=== PATIENT | male | born 1935 | race Caucasian/White ===

== ENCOUNTER 2018-08-16 13:29 | Observation (INO) | payer MEDICARE, SELFPAY ==
[2018-08-16] VITALS (11 sets, daily range): BP systolic 69–140; BP diastolic 50–74; PULSE 47–84; RESP 14–20; TEMP 36.6–36.7; O2SAT 94–98; BMI 21.9; BMI 21.7
--- NOTE | 2018-08-16 13:53 | CT_ITS ---
STUDY: CT CERVICAL SPINE WITHOUT CONTRAST REASON FOR EXAM: Male, 83 years old. Status post fall. RADIATION DOSAGE (If Supplied By Facility): CTDIvol = ( 20.49 ) mGy, DLP = ( 469.57 ) mGycm TECHNIQUE: High resolution transaxial imaging was performed without contrast material. Sagittal and coronal images were reconstructed. Individualized dose optimization techniques were used for this CT. COMPARISON: None FINDINGS: Normal craniovertebral junction. There are degenerative changes of the anterior atlantoaxial articulation. Normal odontoid process. There is straightening of the normal cervical lordosis. There is no evidence of acute compression fracture deformity. The posterior elements are intact. C2-3: Degenerative changes in the apophyseal joints bilaterally. No evidence of central spinal canal or neural foramina stenosis. C3-4: Degenerative changes in the apophyseal joints with probable effusion on the left side. No evidence of central spinal canal or neural foramina stenosis. C4-5: Small posterior lateral degenerative spurs on the left side impinging on the left neural foramina. No evidence of central spinal canal stenosis. C5-6: Narrowing of the disc space. Endplate spondylosis. Degenerative changes in facet joints. No evidence of central spinal canal or bony neural foramina stenosis. C6-7: Narrowing of the disc space. Endplate spondylosis. Degenerative changes in the apophyseal joints. Posterior lateral degenerative spurs with narrowing of the right neural foramina. Borderline central spinal canal. C7-T1: Possible minimal anterolisthesis of C7 over T1. No evidence of central spinal canal stenosis. There is no prevertebral soft tissue swelling. There are atherosclerotic calcifications of the carotid arteries bilaterally. CT/Spine Cervical without Contras IMPRESSION: 1. Multilevel degenerative changes, as described above. 2. Straightening of the cervical spine which could be due to muscle spasm. 3. No demonstrated acute fracture or subluxation. 4. If symptoms persist, MRI of the cervical spine is recommended. Electronically Signed: Mac Pool MD at 15:15 EDT Tel , Service support ,
--- NOTE | 2018-08-16 13:53 | CT_ITS ---
STUDY: CT BRAIN WITHOUT CONTRAST REASON FOR EXAM: Male, 83 years old. Status post fall, syncope injury RADIATION DOSAGE (If Supplied By Facility): CTDIvol = ( 44.99 ) mGy, DLP = ( 779.24 ) mGycm TECHNIQUE: Transaxial CT imaging of the brain was performed without administration of intravenous contrast material. Individualized dose optimization techniques were used for this CT. COMPARISON: September 10, 2015 FINDINGS: Normal soft tissue structures. Normal calvarium. There is mild cerebral atrophy with widening of the extra-axial spaces and ventricular dilatation. There are areas of decreased attenuation within the white matter tracts of the supratentorial brain, consistent with microvascular disease changes. Normal basal ganglia and thalami. Normal brainstem. There is mild cerebellar atrophy. There is no intracranial hemorrhage. There are no findings of an acute ischemic infarction. There is bilateral lobulated chronic appearing mucosal thickening of the maxillary sinuses. This is new on the right side when compared to the prior study. There is a diminutive appearance of the left turbinates absence of the right inferior turbinate and chronic appearing ethmoid sinus sphenoid sinus mucosal thickening with frontal sinusitis. 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 Stable since prior study. 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 No visualized evidence of acute hemorrhage or infarct or edema. Electronically Signed: Liza Saeed MD at 15:30 EDT Tel , Service support ,
--- NOTE | 2018-08-16 13:53 | EKG12_ITS ---
Test Reason : FALL Blood Pressure : / mmHG Vent. Rate : 048 BPM Atrial Rate : 048 BPM P-R Int : 214 ms QRS Dur : 086 ms QT Int : 460 ms P-R-T Axes : 019 010 041 degrees QTc Int : 410 ms Sinus bradycardia with 1st degree A-V block Otherwise normal ECG Confirmed by ORESTES FELICIANO, GENARO ([id number]), food expeditor ADRYAN RED ([id number]) on 08/18/2018 3:11:50 PM Referred By: KEYANA Confirmed By:GENARO CARLISLE MD
--- NOTE | 2018-08-16 14:03 | CT_ITS ---
PROCEDURE: CTA ABDOMEN AND PELVIS WITH CONTRAST REASON FOR EXAM: Male, 83 years old. Status post fall. Right rib pain. Possible syncope. RADIATION DOSAGE (If Supplied By Facility): CTDIvol = ( 14.12 ) mGy, DLP = ( 965.19 ) mGycm TECHNIQUE: Transaxial images were obtained from the dome of the diaphragm to the symphysis pubis without oral contrast, and without intravenous contrast. COMPARISON: None. FINDINGS: The lungs are reported separately. The heart size is normal. No focal lesion is seen in the liver although there is suboptimal enhancement due to arterial phase of scanning. Normal gallbladder and extrahepatic biliary system. The spleen is not enlarged. There is heterogeneous enhancement due to arterial phase of scanning. There is diffuse atrophy of the pancreas. Normal bilateral adrenal glands. Normal right kidney. Normal left kidney. There is a small hiatal hernia. There are nonspecific fluid-filled small bowel loops. There is no evidence of bowel obstruction. No free fluid is seen. There is no evidence of free air. There is fecal retention. There is non-visualization of the appendix. There is no demonstrated peritoneal fluid. There is diffuse atherosclerotic calcification of the abdominal aorta, without a demonstrated aneurysm. Normal inferior vena cava. Normal retroperitoneum. Normal urinary bladder. The prostate is prominent. There is no pelvic fluid. Normal abdominal wall. There is mild compression fracture of L2 vertebra which could be acute. There is demineralization of the osseous structures. IMPRESSION: 1. Mild compression fracture of L2 vertebra without retropulsion which could be acute. 2. Nonspecific fluid-filled small bowel loops which could be due to mild ileus. 3. No evidence of solid organ injury. 4. Small hiatal hernia. 5. Prominent prostate. CT Electronically Signed: Mac Pool MD at 15:33 EDT Tel , Service support , STUDY: CTA CHEST REASON FOR EXAM: Male, 83 years old. Status post fall. Right rib pain. Possible syncope. RADIATION DOSAGE (If Supplied By Facility): CTDIvol = ( 14.12 ) mGy, DLP = ( 965.19 ) mGycm TECHNIQUE: The examination was performed with the intravenous administration of 100 ml of Isovue 300 contrast material. Post-processing of the angiographic images was performed, with multiplanar reformation and 3D reconstruction. Individualized dose optimization techniques were used for this CT. COMPARISON: None. FINDINGS: Normal enhancement of the main pulmonary artery and right and left pulmonary arteries. Normal enhancement of the bilateral peripheral pulmonary arteries. There is no demonstrated pulmonary embolism. The examination however was not tailored to rule out pulmonary embolism. There is atherosclerotic calcification of the aortic arch with tortuosity. There is no demonstrated aortic dissection. There is mild cardiomegaly. There is no evidence of pericardial effusion. Normal mediastinum. Normal hilar regions. The trachea is somewhat tortuous. The lungs are well expanded. There is a small calcified granuloma in the right upper lobe. There is mild stranding and nodular changes in the left lower lobe. There are hypoventilatory changes in the left lower lobe. There are no pleural effusions. Normal chest wall structures. There are degenerative changes of thoracic spine. The upper abdomen is reported separately. CT/CT ANGIO ABD&PEL W/O&W/DYE IMPRESSION: 1. No evidence of pneumothorax or focal pulmonary contusion. 2. Atelectasis or scarring in the left lower lobe. Underlying pulmonary nodule cannot be excluded. 3. No demonstrated definite rib fracture. Electronically Signed: Mac Pool MD at 15:37 EDT Tel , Service support ,
--- NOTE | 2018-08-16 14:03 | CT_ITS ---
PROCEDURE: CTA ABDOMEN AND PELVIS WITH CONTRAST REASON FOR EXAM: Male, 83 years old. Status post fall. Right rib pain. Possible syncope. RADIATION DOSAGE (If Supplied By Facility): CTDIvol = ( 14.12 ) mGy, DLP = ( 965.19 ) mGycm TECHNIQUE: Transaxial images were obtained from the dome of the diaphragm to the symphysis pubis without oral contrast, and without intravenous contrast. COMPARISON: None. FINDINGS: The lungs are reported separately. The heart size is normal. No focal lesion is seen in the liver although there is suboptimal enhancement due to arterial phase of scanning. Normal gallbladder and extrahepatic biliary system. The spleen is not enlarged. There is heterogeneous enhancement due to arterial phase of scanning. There is diffuse atrophy of the pancreas. Normal bilateral adrenal glands. Normal right kidney. Normal left kidney. There is a small hiatal hernia. There are nonspecific fluid-filled small bowel loops. There is no evidence of bowel obstruction. No free fluid is seen. There is no evidence of free air. There is fecal retention. There is non-visualization of the appendix. There is no demonstrated peritoneal fluid. There is diffuse atherosclerotic calcification of the abdominal aorta, without a demonstrated aneurysm. Normal inferior vena cava. Normal retroperitoneum. Normal urinary bladder. The prostate is prominent. There is no pelvic fluid. Normal abdominal wall. There is mild compression fracture of L2 vertebra which could be acute. There is demineralization of the osseous structures. IMPRESSION: 1. Mild compression fracture of L2 vertebra without retropulsion which could be acute. 2. Nonspecific fluid-filled small bowel loops which could be due to mild ileus. 3. No evidence of solid organ injury. 4. Small hiatal hernia. 5. Prominent prostate. CT Electronically Signed: Mac Pool MD at 15:33 EDT Tel , Service support , STUDY: CTA CHEST REASON FOR EXAM: Male, 83 years old. Status post fall. Right rib pain. Possible syncope. RADIATION DOSAGE (If Supplied By Facility): CTDIvol = ( 14.12 ) mGy, DLP = ( 965.19 ) mGycm TECHNIQUE: The examination was performed with the intravenous administration of 100 ml of Isovue 300 contrast material. Post-processing of the angiographic images was performed, with multiplanar reformation and 3D reconstruction. Individualized dose optimization techniques were used for this CT. COMPARISON: None. FINDINGS: Normal enhancement of the main pulmonary artery and right and left pulmonary arteries. Normal enhancement of the bilateral peripheral pulmonary arteries. There is no demonstrated pulmonary embolism. The examination however was not tailored to rule out pulmonary embolism. There is atherosclerotic calcification of the aortic arch with tortuosity. There is no demonstrated aortic dissection. There is mild cardiomegaly. There is no evidence of pericardial effusion. Normal mediastinum. Normal hilar regions. The trachea is somewhat tortuous. The lungs are well expanded. There is a small calcified granuloma in the right upper lobe. There is mild stranding and nodular changes in the left lower lobe. There are hypoventilatory changes in the left lower lobe. There are no pleural effusions. Normal chest wall structures. There are degenerative changes of thoracic spine. The upper abdomen is reported separately. CT/CTA Chest W/WO Contrast IMPRESSION: 1. No evidence of pneumothorax or focal pulmonary contusion. 2. Atelectasis or scarring in the left lower lobe. Underlying pulmonary nodule cannot be excluded. 3. No demonstrated definite rib fracture. Electronically Signed: Mac Pool MD at 15:37 EDT Tel , Service support ,
--- NOTE | 2018-08-16 14:04 | ED.VISSUMM ---
- ER Visit Summary Date of Service: 08/16/18 Chief Complaint: Fall History of Present Illness: The patient is a 83 M who presents with back and right hip pain after a fall. Patient states he got up from sitting and began walking across his living room when he suddenly fell for an unknown reason. He did not lose consciousness and does not recall getting dizzy or lightheaded. He is complaining of pain in the right hip and the lower back. He also complains of neck stiffness. Patient is not on any blood thinners. He denies any shortness of breath. He has fallen before for unknown reason where he falls backwards. EMS found patient diaphoretic and hypotensive on arrival. Physical Examination: Vital signs: afebrile, hemodynamically stable, no hypoxia on room air General: well nourished, well developed, in no distress Skin: warm, dry, no rash, no pallor HEENT: normocephalic and atraumatic; PERRL, EOMI, moist mucous membranes, no maxillofacial trauma Neck: Diffuse tenderness, including midline tenderness Back: Midline tenderness in the lumbar region without deformities. No contusions or abrasions noted. Cardiovascular: bradycardic rate and rhythm without murmurs, no peripheral edema, 2+ pulses all distal extremities Respiratory: No increased work of breathing, lungs are clear to auscultation bilaterally, no rales, rhonchi or wheezing Abdominal: Abdomen is soft, firm, diffusely tender, with normoactive bowel sounds, no guarding or rebound, no also tile masses MSK: Moves all extremities, no deformities, normal strength, full hip flexion, internal and external rotation without pain. Flexion and extension of the knee intact. Neuro: Awake and alert, oriented ?4. No facial droop, sensation and motor function intact and symmetric Test Results: Abnormal Lab Results 08/16/18 08/16/18 08/16/18 13:37 13:37 13:37 WBC 5.0 RBC 3.97 L Hgb 13.2 Hct 37.3 L MCV 94.0 MCH 33.2 H MCHC 35.4 RDW 12.0 RDW Differential 40.9 Plt Count 198 MPV 9.5 Immature Gran % (Auto) 0.800 Neut % (Auto) 63.7 Lymph % (Auto) 19.7 [place] % (Auto) 11.2 H Eos % (Auto) 4.2 Baso % (Auto) 0.4 Absolute Neuts (auto) 3.2 Absolute Lymphs (auto) 0.98 Total Counted Not Reportable PT 13.6 INR 1.0 APTT 27.0 Sodium 130 L Potassium 4.5 Chloride 96 L Carbon Dioxide 28.0 Anion Gap 6 BUN 12 Creatinine 0.79 Estim Creat Clear Calc 54.86 Est GFR (MDRD) Af Amer 121 Est GFR (MDRD) Non-Af 100 BUN/Creatinine Ratio 15.2 Glucose 82 Calcium 8.6 Total Bilirubin 0.40 Direct Bilirubin 0.13 AST 26 ALT 49 Alkaline Phosphatase 82 Total Protein 7.4 Albumin 3.7 Globulin 3.7 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 No visualized evidence of acute hemorrhage or infarct or edema. Electronically Signed: Liza Saeed MD at 15:30 EDT Tel , Service support , Cervical Spine CT 08/16/18 13:53 IMPRESSION: 1. Multilevel degenerative changes, as described above. 2. Straightening of the cervical spine which could be due to muscle spasm. 3. No demonstrated acute fracture or subluxation. 4. If symptoms persist, MRI of the cervical spine is recommended. Electronically Signed: Mac Pool MD at 15:15 EDT Tel , Service support , Abdomen/Pelvis CTA 08/16/18 14:03 IMPRESSION: 1. No evidence of pneumothorax or focal pulmonary contusion. 2. Atelectasis or scarring in the left lower lobe. Underlying pulmonary nodule cannot be excluded. 3. No demonstrated definite rib fracture. Electronically Signed: Mac Pool MD at 15:37 EDT Tel , Service support , Chest CTA 08/16/18 14:03 IMPRESSION: 1. No evidence of pneumothorax or focal pulmonary contusion. 2. Atelectasis or scarring in the left lower lobe. Underlying pulmonary nodule cannot be excluded. 3. No demonstrated definite rib fracture. Electronically Signed: Mac Pool MD at 15:37 EDT Tel , Service support , Lumbar Spine CT 08/16/18 14:42 Medications Given Fentanyl Citrate (Sublimaze (100mcg Ampule)) 50 mcg IV X1 ONE Stop: 08/16/18 17:03 Discontinued Medications Fentanyl Citrate (Sublimaze (100mcg Ampule)) 50 mcg IV X1 ONE Stop: 08/16/18 13:54 Last Admin: 08/16/18 14:19 Dose: 50 mcg Sodium Chloride () 1,000 mls @ 999 mls/hr IV .Q1H1M ONE Stop: 08/16/18 14:53 Last Admin: 08/16/18 14:19 Dose: 999 mls/hr Emergency Department Course and Treatment: Patient presents for a fall, with diaphoresis and hypotension noted by EMS. Patient does not think he hit his head but is complaining of neck and back pain as well as right hip pain. Patient also is complaining of diffuse abdominal tenderness with palpation. Because of the episode of hypotension and the fall of unknown origin, along with the abdominal tenderness, CTA of the chest, abdomen and pelvis was performed to look for any aortic pathology. Patient's labs showed mild hyponatremia, which is an ongoing issue for the patient. No leukocytosis or significant anemia. Urinalysis still pending. EKG showed a sinus bradycardia without ischemic changes, unchanged from patient's prior EKGs except for the rate. Patient received fentanyl for pain. CT reconstruction of the lumbar spine showed an L2 compression fracture with a chip fracture of the superior endplate. This likely explains patient's back pain. CT angiogram showed no dissection or aortic aneurysm. Head CT and C-spine CT showed no fractures or intracranial hemorrhage. Remainder of workup showed no traumatic findings. On reevaluation patient stated he would rather go home, however patient failed an ambulation trial and was unable to ambulate without 2 people assisting him. He became very dizzy, and the ambulation trial was cut short. Patient was placed back in bed, and a repeat blood pressure showed acute significant hypotension at 67/50. After a period of rest, patient's blood pressure returned to normotension. Patient will be admitted for further workup of his significant orthostatic hypotension, likely contributing to his falls, as well as management of his acute L2 compression fracture and pain control. Patient was given additional fentanyl for pain. Treatment Plan: [] Disposition: [] Impression: Acute L2 compression fracture, orthostatic hypotension, frequent falls This note was generated with [employer] dictation software. It may contain incorrect words, spelling, and punctuation that were not noted in review of the chart prior to signing ED Disposition - Plan for ED Patient: Chief Complaint: Fall Referrals: Shasta Benites MD [Primary Care Provider] -
[2018-08-16 14:05] LABS: Absolute Lymphocyte Count 0.98 X10^3/ul (0.83-4.51); Absolute Neutrophil Count 3.2 X10^3/uL (2.0-7.7); Basophil# 0.02 X10^3/uL; Basophil% 0.4 % (0-1); Eosinophil# 0.21 X10^3/uL; Eosinophils% 4.2 % (0-5); Hematocrit 37.3 % (40-54); Hemoglobin 13.2 g/dl (13.0-16.5); Lymphocyte # 0.98 X10^3/ul (4.0); Lymphocyte % 19.7 % (19-41); Mean Corp Hgb Conc 35.4 g/gl (32-36); Mean Corpuscular Hgb 33.2 pg (27.0-32.0); Mean Platelet Vol. 9.5 fl (6.2-12.0); Monocyte# 0.56 X10^3/uL; Monocyte% 11.2 % (0-10); Neutrophil # 3.17 X10^3/uL (2.7-7.7); Neutrophil % 63.7 % (47-70); Platelet Count 198 K/mm3 (150-450); RBC Distribution Width SD 40.9 fl (35.1-43.9); Red Blood Count 3.97 M/mm3 (4.6-6.2)
[2018-08-16 14:06] LABS: POSITIVE COUNT NO; POSITIVE DIFFERENTIAL NO; POSITIVE MORPHOLOGY NO
--- NOTE | 2018-08-16 14:08 | ED.DCSUM_ITS ---
- ER Visit Summary Date of Service: 08/16/18 Chief Complaint: Fall History of Present Illness: The patient is a 83 M who presents with back and right hip pain after a fall. Patient states he got up from sitting and began walking across his living room when he suddenly fell for an unknown reason. He did not lose consciousness and does not recall getting dizzy or lightheaded. He is complaining of pain in the right hip and the lower back. He also complains of neck stiffness. Patient is not on any blood thinners. He denies any shortness of breath. He has fallen before for unknown reason where he falls backwards. EMS found patient diaphoretic and hypotensive on arrival. Physical Examination: Vital signs: afebrile, hemodynamically stable, no hypoxia on room air General: well nourished, well developed, in no distress Skin: warm, dry, no rash, no pallor HEENT: normocephalic and atraumatic; PERRL, EOMI, moist mucous membranes, no maxillofacial trauma Neck: Diffuse tenderness, including midline tenderness Back: Midline tenderness in the lumbar region without deformities. No contusions or abrasions noted. Cardiovascular: bradycardic rate and rhythm without murmurs, no peripheral edema, 2+ pulses all distal extremities Respiratory: No increased work of breathing, lungs are clear to auscultation bilaterally, no rales, rhonchi or wheezing Abdominal: Abdomen is soft, firm, diffusely tender, with normoactive bowel sounds, no guarding or rebound, no also tile masses MSK: Moves all extremities, no deformities, normal strength, full hip flexion, internal and external rotation without pain. Flexion and extension of the knee intact. Neuro: Awake and alert, oriented ?4. No facial droop, sensation and motor function intact and symmetric Test Results: Abnormal Lab Results 08/16/18 08/16/18 08/16/18 13:37 13:37 13:37 WBC 5.0 RBC 3.97 L Hgb 13.2 Hct 37.3 L MCV 94.0 MCH 33.2 H MCHC 35.4 RDW 12.0 RDW Differential 40.9 Plt Count 198 MPV 9.5 Immature Gran % (Auto) 0.800 Neut % (Auto) 63.7 Lymph % (Auto) 19.7 [place] % (Auto) 11.2 H Eos % (Auto) 4.2 Baso % (Auto) 0.4 Absolute Neuts (auto) 3.2 Absolute Lymphs (auto) 0.98 Total Counted Not Reportable PT 13.6 INR 1.0 APTT 27.0 Sodium 130 L Potassium 4.5 Chloride 96 L Carbon Dioxide 28.0 Anion Gap 6 BUN 12 Creatinine 0.79 Estim Creat Clear Calc 54.86 Est GFR (MDRD) Af Amer 121 Est GFR (MDRD) Non-Af 100 BUN/Creatinine Ratio 15.2 Glucose 82 Calcium 8.6 Total Bilirubin 0.40 Direct Bilirubin 0.13 AST 26 ALT 49 Alkaline Phosphatase 82 Total Protein 7.4 Albumin 3.7 Globulin 3.7 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 No visualized evidence of acute hemorrhage or infarct or edema. Electronically Signed: Liza Saeed MD at 15:30 EDT Tel , Service support , Cervical Spine CT 08/16/18 13:53 IMPRESSION: 1. Multilevel degenerative changes, as described above. 2. Straightening of the cervical spine which could be due to muscle spasm. 3. No demonstrated acute fracture or subluxation. 4. If symptoms persist, MRI of the cervical spine is recommended. Electronically Signed: Mac Pool MD at 15:15 EDT Tel , Service support , Abdomen/Pelvis CTA 08/16/18 14:03 IMPRESSION: 1. No evidence of pneumothorax or focal pulmonary contusion. 2. Atelectasis or scarring in the left lower lobe. Underlying pulmonary nodule cannot be excluded. 3. No demonstrated definite rib fracture. Electronically Signed: Mac Pool MD at 15:37 EDT Tel , Service support , Chest CTA 08/16/18 14:03 IMPRESSION: 1. No evidence of pneumothorax or focal pulmonary contusion. 2. Atelectasis or scarring in the left lower lobe. Underlying pulmonary nodule cannot be excluded. 3. No demonstrated definite rib fracture. Electronically Signed: Mac Pool MD at 15:37 EDT Tel , Service support , Lumbar Spine CT 08/16/18 14:42 Medications Given Fentanyl Citrate (Sublimaze (100mcg Ampule)) 50 mcg IV X1 ONE Stop: 08/16/18 17:03 Discontinued Medications Fentanyl Citrate (Sublimaze (100mcg Ampule)) 50 mcg IV X1 ONE Stop: 08/16/18 13:54 Last Admin: 08/16/18 14:19 Dose: 50 mcg Sodium Chloride () 1,000 mls @ 999 mls/hr IV .Q1H1M ONE Stop: 08/16/18 14:53 Last Admin: 08/16/18 14:19 Dose: 999 mls/hr Emergency Department Course and Treatment: Patient presents for a fall, with diaphoresis and hypotension noted by EMS. Patient does not think he hit his head but is complaining of neck and back pain as well as right hip pain. Patient also is complaining of diffuse abdominal tenderness with palpation. Because of the episode of hypotension and the fall of unknown origin, along with the abdominal tenderness, CTA of the chest, abdomen and pelvis was performed to look for any aortic pathology. Patient's labs showed mild hyponatremia, which is an ongoing issue for the patient. No leukocytosis or significant anemia. Urinalysis still pending. EKG showed a sinus bradycardia without ischemic changes, unchanged from patient's prior EKGs except for the rate. Patient received fentanyl for pain. CT reconstruction of the lumbar spine showed an L2 compression fracture with a chip fracture of the superior endplate. This likely explains patient's back pain. CT angiogram showed no dissection or aortic aneurysm. Head CT and C-spine CT showed no fractures or intracranial hemorrhage. Remainder of workup showed no traumatic findings. On reevaluation patient stated he would rather go home, however patient failed an ambulation trial and was unable to ambulate without 2 people assisting him. He became very dizzy, and the ambulation trial was cut short. Patient was placed back in bed, and a repeat blood pressure showed acute significant hypotension at 67/50. After a period of rest, patient's blood pressure returned to normotension. Patient will be admitted for further workup of his significant orthostatic hypotension, likely contributing to his falls, as well as management of his acute L2 compression fracture and pain control. Patient was given additional fentanyl for pain. Treatment Plan: [] Disposition: [] Impression: Acute L2 compression fracture, orthostatic hypotension, frequent falls This note was generated with [employer] dictation software. It may contain incorrect words, spelling, and punctuation that were not noted in review of the chart prior to signing ED Disposition - Plan for ED Patient: Chief Complaint: Fall Referrals: Shasta Benites MD [Primary Care Provider] -
[2018-08-16 14:16] LABS: AST(SGOT) 26 U/L (15-37); Alanine Aminotransfer ALT/SGPT 49 U/L (16-61); Albumin, Serum 3.7 g/dL (3.2-5.0); Alkaline Phosphatase 82 U/L (45-117); Anion Gap 6 (5-15); BUN 12 mg/dL (7-18); BUN/Creat Ratio 15.2 RATIO (10-20); Bilirubin, Direct 0.13 mg/dL (0.00-0.30); Calcium,Total 8.6 mg/dL (8.5-10.1); Chloride 96 mmol/L (98-107); Creatinine, Serum 0.79 mg/dL (0.70-1.30); EST Glomerular Filtration Rate 100 mL/min (>60); Est Glom Filt Rate - Afr Amer 121 mL/min (>60); Estimated Creatinine Clearance 54.86 ml/min; Globulin 3.7 g/dL (2.2-4.2); Glucose 82 mg/dL (74-106); Potassium 4.5 mmol/L (3.5-5.1); Protein, Total 7.4 g/dL (6.4-8.2); Sodium Level 130 mmol/L (136-145)
[2018-08-16 14:19] LABS: Prothrombin Time (Protime)PT. 13.6 SECONDS (11.7-14.9)
[2018-08-16] MEDS: 0.9% Normal Saline 1,000 ML 999 ML IV (14:19)
[2018-08-16] MEDS: fentaNYL 100 MCG/2 ML Ampul 50 MCG IV (14:19)
--- NOTE | 2018-08-16 14:42 | CT_ITS ---
STUDY: CT LUMBAR SPINE WITHOUT CONTRAST REASON FOR EXAM: Male, 83 years old. FALL WITH BACK PAIN RADIATION DOSAGE (If Supplied By Facility): CTDIvol = ( 16.29 ) mGy, DLP = ( 513.84 ) mGycm Individualized dose optimization techniques were used for this CT. TECHNIQUE: The patient was scanned in a multi detector CT scanner. High resolution transaxial imaging was performed. Images were obtained from T12 to S1. Sagittal and coronal images were reconstructed. COMPARISON: None FINDINGS: There is normal alignment. Acute appearing superior endplate compression deformity of L2. Chip fracture of the anterior superior endplate of L2. There is less than 25% loss of vertebral body height at L2. There are no retropulsed fragments. No pre-vertebral soft tissue swelling is seen. The intravertebral disc height is lost. There are degenerative changes of the osseous structures. There is bilateral facet arthropathy. No spinal stenosis. There are calcifications of the abdominal aorta. This is consistent for atherosclerotic disease. There is no abdominal aortic aneurysm. Normal visualized paraspinous soft tissue structures. IMPRESSION: Acute appearing superior endplate compression deformity of L2. Chip fracture of the anterior superior endplate of L2. There are degenerative changes as noted above. Electronically Signed: Moises Mosley MD at 15:42 EDT , Service support , CT/Spine Lumbar without Contrast
--- NOTE | 2018-08-16 16:52 | ED.RN ---
PT AMBULATE WITH THE ASSISTANCE OF 2. PT C/O FEELING LIGHTHEADED. BP TAKEN WHEN RETURNED TO BED AND PT WAS 67/52. PHYSICIAN AWARE.
--- NOTE | 2018-08-16 17:11 | PCM.HP.STD ---
Problem List (1) Compression fracture of L2 Status: Acute Qualifiers: Encounter type: initial encounter (2) Syncope Status: Acute (3) Chest pain Status: Resolved (4) Normochromic normocytic anemia Status: Chronic (5) Alcohol abuse Status: Chronic (6) Anxiety Status: Chronic (7) CAD (coronary artery disease) Status: Chronic (8) Hyponatremia Status: Chronic History of Present Illness Date of Admission: 08/16/18 Chief Complaint: Fall The patient is a 83 year old M with past medical history significant for hypertension, chronic hyponatremia, CAD who presents with a fall. Patient reports feeling lightheaded once he got out of bed to go to coffee. He did fall. called EMS who upon arrival found patient to be diaphoretic and relatively hypotensive with systolic blood pressure in the 80s. Patient was subsequently transferred to the emergency department. Patient underwent extensive workup in the ED was found to have 2 compression fracture. Patient became orthostatic upon ambulating in the ED decision was therefore made to admit patient for subsequent evaluation and management to the hospital. Past Medical History Past Medical History (Chronic Problems): Chronic Problems Hyponatremia (Chronic) Normochromic normocytic anemia (Chronic) Anxiety (Chronic) Alcohol abuse (Chronic) CAD (coronary artery disease) (Chronic) Allergies Penicillins Allergy (Verified 08/16/18 13:34) Unknown Home Medications: Ambulatory Orders Medication Instructions Recorded Aspirin [Aspirin, Baby] 81 mg PO DAILY@0800 10/04/16 Atorvastatin Calcium [Lipitor] 80 mg PO QHS 10/04/16 Carvedilol [Coreg (Beta Annie)] 3.125 mg PO BID 10/04/16 Nitroglycerin [Nitrolingual [place]] 0.4 mg SL PRN PRN 10/04/16 Sertraline HCl [Zoloft] 50 mg PO DAILY 08/16/18 Surgical History: appendectomy, cataract, - - Left eye surgery, appendectomy. Psychiatric History: No pertinent psych hx Smoking Status: Former smoker - *Family History Maternal History Items: Cancer - Mother of leukemia Review of Systems Constitutional: Reports: Malaise, Weight Change, Fatigue. Denies: Anorexia, Chills, Fever, Night Sweats HEENT: Denies: Head Aches, Sinus Congestion, Sinus Drainage Cardiovascular: Denies: Chest Pain, Orthopnea, Palpitations, Paroxysmal Noc. Dyspnea Respiratory: Denies: Cough, Shortness of breath at rest, Shortness of breath upon exertion, Sputum production Gastrointestinal: Denies: Abdominal Pain, Hematemesis, Hematochezia, Nausea, Melena, Vomiting Genitourinary: Denies: Dysuria, Frequency, Hematuria, Urgency Musculoskeletal: Reports: Back Pain Skin: Denies: Rash Neurological: Denies: Focal weakness, Numbness, Tingling Psychiatric: Denies: Homicidal Ideations, Suicidal Ideations Hematologic/ Lymphatic: Denies: Easy Bruising, Easy Bleeding VTE Information - Inpt Only VTE Present on Admission: No VTE Mechan Device Prophylaxis: Knee High CHA Hose VTE Pharm Prophylaxis ordered?: Yes Patient Problems: Active and Suspected Problems Compression fracture of L2 (Acute) Objective: GENERAL: Flat affect HEENT: Atraumatic; moist oral mucosa EYES; Anicteric, Normal Conjunctiva NECK; supple, normal thyroid, no distended JVD. RESPIRATORY: Diminished to auscultation bilaterally, CARDIOVASCULAR: Regular S1 S2, no audible murmurs GI: soft, non-tender, normoactive bowel sounds, : No Renal angle tenderness; No duffy EXTREMITIES: No edema, no clubbing, no cyanosis. MUSCULOSKELTAL: No no muscle waisting NEURO: Awake; no lateralizing signs. SKIN: No Rash PSYCH; Normal affect - Physical Exam Vital Signs Temp Pulse Resp BP Pulse Ox 97.8 F 66 19 H 127/64 H 94 08/16/18 13:31 08/16/18 17:09 08/16/18 17:09 08/16/18 17:09 08/16/18 17:09 Oxygen Flow Rate (L/min) 97 Oxygen Delivery Method Room Air Weight: 69.3 kg Body Mass Index (BMI) 21.9 Laboratory Tests Past 24 Hrs 08/16/18 08/16/18 08/16/18 13:37 13:37 13:37 WBC 5.0 RBC 3.97 L Hgb 13.2 Hct 37.3 L MCV 94.0 MCH 33.2 H MCHC 35.4 RDW 12.0 RDW Differential 40.9 Plt Count 198 MPV 9.5 Immature Gran % (Auto) 0.800 Neut % (Auto) 63.7 Lymph % (Auto) 19.7 [place] % (Auto) 11.2 H Eos % (Auto) 4.2 Baso % (Auto) 0.4 Absolute Neuts (auto) 3.2 Absolute Lymphs (auto) 0.98 Total Counted Not Reportable PT 13.6 INR 1.0 APTT 27.0 Sodium 130 L Potassium 4.5 Chloride 96 L Carbon Dioxide 28.0 Anion Gap 6 BUN 12 Creatinine 0.79 Estim Creat Clear Calc 54.86 Est GFR (MDRD) Af Amer 121 Est GFR (MDRD) Non-Af 100 BUN/Creatinine Ratio 15.2 Glucose 82 Calcium 8.6 Total Bilirubin 0.40 Direct Bilirubin 0.13 AST 26 ALT 49 Alkaline Phosphatase 82 Total Protein 7.4 Albumin 3.7 Globulin 3.7 Assessment/Plan All Active Problems Compression fracture of L2 (Acute) Syncope (Acute) Chest pain (Resolved) Patient is an 83-year-old gentleman presenting with a 4 1. Acute mechanical fall suspected to be secondary to orthostatic hypotension. Patient has been admitted to a monitored bed for continuous telemetry monitoring. Patient was resuscitated with IV fluids. Ordered serial cardiac enzymes, every shift orthostatic checks as well as a 2D echo 2. L2 compression fracture following patient's for plan is to manage symptomatically however if patient fails conservative management we will consult pain management for consideration for possible epidural steroid injection 3. Hyponatremia chronic 4. Hypertension patient is on carvedilol held 5. CAD per history 6. DVT prophylaxis SC Lovenox Advance planning; did discuss with the patient and family regarding her advanced directives as well as CODE STATUS. Did explain the various modalities involved ( FULL CODE, DNR CCA, DNR CCA with no intubation, and DNR CC ) patient elected to be DNR CCA no intubation. Order was placed. Time spent on discussion 18 minutes. 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 No visualized evidence of acute hemorrhage or infarct or edema. Electronically Signed: Liza Saeed MD at 15:30 EDT Tel , Service support , Cervical Spine CT 08/16/18 13:53 IMPRESSION: 1. Multilevel degenerative changes, as described above. 2. Straightening of the cervical spine which could be due to muscle spasm. 3. No demonstrated acute fracture or subluxation. 4. If symptoms persist, MRI of the cervical spine is recommended. Electronically Signed: Mac Pool MD at 15:15 EDT Tel , Service support , Abdomen/Pelvis CTA 08/16/18 14:03 IMPRESSION: 1. No evidence of pneumothorax or focal pulmonary contusion. 2. Atelectasis or scarring in the left lower lobe. Underlying pulmonary nodule cannot be excluded. 3. No demonstrated definite rib fracture. Electronically Signed: Mac Pool MD at 15:37 EDT Tel , Service support , Chest CTA 08/16/18 14:03 IMPRESSION: 1. No evidence of pneumothorax or focal pulmonary contusion. 2. Atelectasis or scarring in the left lower lobe. Underlying pulmonary nodule cannot be excluded. 3. No demonstrated definite rib fracture. Electronically Signed: Mac Pool MD at 15:37 EDT Tel , Service support , Code Visit OBSV E&M: 88371 Initial observation care L3 Procedures: 65918 Advncd Care Plan 30 Min
--- NOTE | 2018-08-16 17:15 | HP.PCM_ITS ---
Problem List (1) Compression fracture of L2 Status: Acute Qualifiers: Encounter type: initial encounter (2) Syncope Status: Acute (3) Chest pain Status: Resolved (4) Normochromic normocytic anemia Status: Chronic (5) Alcohol abuse Status: Chronic (6) Anxiety Status: Chronic (7) CAD (coronary artery disease) Status: Chronic (8) Hyponatremia Status: Chronic History of Present Illness Date of Admission: 08/16/18 Chief Complaint: Fall The patient is a 83 year old M with past medical history significant for hypertension, chronic hyponatremia, CAD who presents with a fall. Patient reports feeling lightheaded once he got out of bed to go to coffee. He did fall. called EMS who upon arrival found patient to be diaphoretic and relatively hypotensive with systolic blood pressure in the 80s. Patient was subsequently transferred to the emergency department. Patient underwent extensive workup in the ED was found to have 2 compression fracture. Patient became orthostatic upon ambulating in the ED decision was therefore made to admit patient for subsequent evaluation and management to the hospital. Past Medical History Past Medical History (Chronic Problems): Chronic Problems Hyponatremia (Chronic) Normochromic normocytic anemia (Chronic) Anxiety (Chronic) Alcohol abuse (Chronic) CAD (coronary artery disease) (Chronic) Allergies Penicillins Allergy (Verified 08/16/18 13:34) Unknown Home Medications: Ambulatory Orders Medication Instructions Recorded Aspirin [Aspirin, Baby] 81 mg PO DAILY@0800 10/04/16 Atorvastatin Calcium [Lipitor] 80 mg PO QHS 10/04/16 Carvedilol [Coreg (Beta Annie)] 3.125 mg PO BID 10/04/16 Nitroglycerin [Nitrolingual [place]] 0.4 mg SL PRN PRN 10/04/16 Sertraline HCl [Zoloft] 50 mg PO DAILY 08/16/18 Surgical History: appendectomy, cataract, - - Left eye surgery, appendectomy. Psychiatric History: No pertinent psych hx Smoking Status: Former smoker - *Family History Maternal History Items: Cancer - Mother of leukemia Review of Systems Constitutional: Reports: Malaise, Weight Change, Fatigue. Denies: Anorexia, Chills, Fever, Night Sweats HEENT: Denies: Head Aches, Sinus Congestion, Sinus Drainage Cardiovascular: Denies: Chest Pain, Orthopnea, Palpitations, Paroxysmal Noc. Dyspnea Respiratory: Denies: Cough, Shortness of breath at rest, Shortness of breath upon exertion, Sputum production Gastrointestinal: Denies: Abdominal Pain, Hematemesis, Hematochezia, Nausea, Melena, Vomiting Genitourinary: Denies: Dysuria, Frequency, Hematuria, Urgency Musculoskeletal: Reports: Back Pain Skin: Denies: Rash Neurological: Denies: Focal weakness, Numbness, Tingling Psychiatric: Denies: Homicidal Ideations, Suicidal Ideations Hematologic/ Lymphatic: Denies: Easy Bruising, Easy Bleeding VTE Information - Inpt Only VTE Present on Admission: No VTE Mechan Device Prophylaxis: Knee High CHA Hose VTE Pharm Prophylaxis ordered?: Yes Patient Problems: Active and Suspected Problems Compression fracture of L2 (Acute) Objective: GENERAL: Flat affect HEENT: Atraumatic; moist oral mucosa EYES; Anicteric, Normal Conjunctiva NECK; supple, normal thyroid, no distended JVD. RESPIRATORY: Diminished to auscultation bilaterally, CARDIOVASCULAR: Regular S1 S2, no audible murmurs GI: soft, non-tender, normoactive bowel sounds, : No Renal angle tenderness; No duffy EXTREMITIES: No edema, no clubbing, no cyanosis. MUSCULOSKELTAL: No no muscle waisting NEURO: Awake; no lateralizing signs. SKIN: No Rash PSYCH; Normal affect - Physical Exam Vital Signs Temp Pulse Resp BP Pulse Ox 97.8 F 66 19 H 127/64 H 94 08/16/18 13:31 08/16/18 17:09 08/16/18 17:09 08/16/18 17:09 08/16/18 17:09 Oxygen Flow Rate (L/min) 97 Oxygen Delivery Method Room Air Weight: 69.3 kg Body Mass Index (BMI) 21.9 Laboratory Tests Past 24 Hrs 08/16/18 08/16/18 08/16/18 13:37 13:37 13:37 WBC 5.0 RBC 3.97 L Hgb 13.2 Hct 37.3 L MCV 94.0 MCH 33.2 H MCHC 35.4 RDW 12.0 RDW Differential 40.9 Plt Count 198 MPV 9.5 Immature Gran % (Auto) 0.800 Neut % (Auto) 63.7 Lymph % (Auto) 19.7 [place] % (Auto) 11.2 H Eos % (Auto) 4.2 Baso % (Auto) 0.4 Absolute Neuts (auto) 3.2 Absolute Lymphs (auto) 0.98 Total Counted Not Reportable PT 13.6 INR 1.0 APTT 27.0 Sodium 130 L Potassium 4.5 Chloride 96 L Carbon Dioxide 28.0 Anion Gap 6 BUN 12 Creatinine 0.79 Estim Creat Clear Calc 54.86 Est GFR (MDRD) Af Amer 121 Est GFR (MDRD) Non-Af 100 BUN/Creatinine Ratio 15.2 Glucose 82 Calcium 8.6 Total Bilirubin 0.40 Direct Bilirubin 0.13 AST 26 ALT 49 Alkaline Phosphatase 82 Total Protein 7.4 Albumin 3.7 Globulin 3.7 Assessment/Plan All Active Problems Compression fracture of L2 (Acute) Syncope (Acute) Chest pain (Resolved) Patient is an 83-year-old gentleman presenting with a 4 1. Acute mechanical fall suspected to be secondary to orthostatic hypotension. Patient has been admitted to a monitored bed for continuous telemetry monitoring. Patient was resuscitated with IV fluids. Ordered serial cardiac enzymes, every shift orthostatic checks as well as a 2D echo 2. L2 compression fracture following patient's for plan is to manage symptomatically however if patient fails conservative management we will consult pain management for consideration for possible epidural steroid injection 3. Hyponatremia chronic 4. Hypertension patient is on carvedilol held 5. CAD per history 6. DVT prophylaxis SC Lovenox Advance planning; did discuss with the patient and family regarding her advanced directives as well as CODE STATUS. Did explain the various modalities involved ( FULL CODE, DNR CCA, DNR CCA with no intubation, and DNR CC ) patient elected to be DNR CCA no intubation. Order was placed. Time spent on discussion 18 minutes. 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 No visualized evidence of acute hemorrhage or infarct or edema. Electronically Signed: Liza Saeed MD at 15:30 EDT Tel , Service support , Cervical Spine CT 08/16/18 13:53 IMPRESSION: 1. Multilevel degenerative changes, as described above. 2. Straightening of the cervical spine which could be due to muscle spasm. 3. No demonstrated acute fracture or subluxation. 4. If symptoms persist, MRI of the cervical spine is recommended. Electronically Signed: Mac Pool MD at 15:15 EDT Tel , Service support , Abdomen/Pelvis CTA 08/16/18 14:03 IMPRESSION: 1. No evidence of pneumothorax or focal pulmonary contusion. 2. Atelectasis or scarring in the left lower lobe. Underlying pulmonary nodule cannot be excluded. 3. No demonstrated definite rib fracture. Electronically Signed: Mac Pool MD at 15:37 EDT Tel , Service support , Chest CTA 08/16/18 14:03 IMPRESSION: 1. No evidence of pneumothorax or focal pulmonary contusion. 2. Atelectasis or scarring in the left lower lobe. Underlying pulmonary nodule cannot be excluded. 3. No demonstrated definite rib fracture. Electronically Signed: Mac Pool MD at 15:37 EDT Tel , Service support , Code Visit OBSV E&M: [id number] Initial observation care L3 Procedures: [id number] Advncd Care Plan 30 Min
[2018-08-16] MEDS: oxyCODONE 5 MG Tablet PO (17:59)
[2018-08-16] MEDS: 0.9% Normal Saline 1,000 ML 200 ML IV (18:02)
[2018-08-16] MEDS: Ketorolac 15 MG/ML Vial IV (19:24)
[2018-08-16 20:25] LABS: Magnesium 2.3 mg/dL (1.6-2.6)
[2018-08-16] MEDS: Atorvastatin Calcium 80 MG Tablet PO (22:15)
[2018-08-16] MEDS: Senna/Docusate Sodium 1 Tablet 2 TABLET PO (22:15)
[2018-08-16] MEDS: Carvedilol 3.125 MG TABLET PO (22:15)
[2018-08-16 23:21] LABS: Mucous, Urine 0 SEEN /hpf (<or=2+); Squamous Epithelial Cells - UA 0 SEEN /hpf (0-5)
[2018-08-16 23:26] LABS: Color, Urine Yellow (Yellow); Glucose, Dipstick Normal (Normal); Ketone-Dipstick Negative (Negative); Leukocyte Esterase-Dipstick Negative /ul (Negative); Nitrite-Dipstick Negative (Negative); Occult Blood-Urine 10 /ul (Negative); Protein-Dipstick 15 mg/dl (Negative); Specific Gravity, Urine 1.005 (1.002-1.030); Urine Bilirubin Dipstick Negative (Negative); Urine Clarity Clear (Clear); Urine Urobilinogen Normal (Normal)
[2018-08-16 23:34] LABS: Bacteria RARE /hpf (None Seen); Red Blood Cells-Urine 0-5 SEEN /hpf (0-5); White Blood Cells 0-5 SEEN /hpf (0-5)
[2018-08-17] VITALS (14 sets, daily range): BP systolic 104–190; BP diastolic 44–76; PULSE 64–78; RESP 15–18; TEMP 36.5–36.8; O2SAT 91–95
[2018-08-17] MEDS: oxyCODONE 5 MG Tablet PO ×4 (05:41→19:47)
[2018-08-17 06:41] LABS: Anion Gap 7 (5-15); BUN 22 mg/dL (7-18); BUN/Creat Ratio 28.9 RATIO (10-20); Calcium,Total 8.2 mg/dL (8.5-10.1); Chloride 98 mmol/L (98-107); Creatinine, Serum 0.76 mg/dL (0.70-1.30); EST Glomerular Filtration Rate 104 mL/min (>60); Est Glom Filt Rate - Afr Amer 125 mL/min (>60); Estimated Creatinine Clearance 54.31 ml/min; Glucose 112 mg/dL (74-106); Potassium 4.1 mmol/L (3.5-5.1); Sodium Level 130 mmol/L (136-145)
[2018-08-17] MEDS: Aspirin 81 MG TAB.CHEW PO (08:48)
[2018-08-17] MEDS: Carvedilol 3.125 MG TABLET PO ×2 (08:48→19:53)
[2018-08-17] MEDS: Sertraline 50 MG Tablet PO (08:50)
[2018-08-17] MEDS: Senna/Docusate Sodium 1 Tablet 2 TABLET PO ×2 (08:50→19:54)
[2018-08-17] MEDS: Enoxaparin 40 MG/0.4 ML Syringe SC (08:50)
[2018-08-17] MEDS: Acetaminophen 325 MG Tablet 650 MG PO (08:52)
--- NOTE | 2018-08-17 08:59 | PN_ITS ---
Patient Problems: Active and Suspected Problems Compression fracture of L2 (Acute) Subjective: Patient is an 83-year-old gentleman presenting with a acute mechanical fall. Patient was significantly orthostatic on admission. Imaging studies obtained on admission demonstrated L2 compression fracture admitted to a monitored bed where he is currently undergoing evaluation 08/17/2018: Patient seen still complains of significant low back pain. Consultation was placed to Dr. Quezada with pain management Objective: GENERAL: Flat affect HEENT: Atraumatic; moist oral mucosa EYES; Anicteric, Normal Conjunctiva NECK; supple, normal thyroid, no distended JVD. RESPIRATORY: Diminished to auscultation bilaterally, CARDIOVASCULAR: Regular S1 S2, no audible murmurs GI: soft, non-tender, normoactive bowel sounds, : No Renal angle tenderness; No duffy EXTREMITIES: No edema, no clubbing, no cyanosis. MUSCULOSKELTAL: No no muscle waisting NEURO: Awake; no lateralizing signs. SKIN: No Rash PSYCH; Normal affect Vitals/I&O's: Vital Signs Temp Pulse Resp BP Pulse Ox 98.3 F 73 16 130/61 H 92 08/17/18 08:47 08/17/18 08:47 08/17/18 08:47 08/17/18 08:47 08/17/18 08:47 Oxygen Flow Rate (L/min) 97 Oxygen Delivery Method Room Air Weight: 68.6 kg Body Mass Index (BMI) 21.7 Orthostatic Vital Signs Start: 08/17/18 02:33 Freq: q24h Status: Active Protocol: Activity Type Activity Date Activity User E-Sign Co-Sign Detail Recorded Client Recorded Date Recorded By Document 08/17/18 05:36 AR [id number] 08/17/18 05:40 AR 08/17/18 05:36 Orthostatic Vitals Standing -Blood Pressure (90/60-120/80 mm Hg) 104/44 L -Extremity Use Left Arm -Pulse Rate (60-100 beats/min) 76 Sitting -Blood Pressure (90/60-120/80 mm Hg) 116/54 L -Extremity Use Left Arm -Pulse Rate (60-100 beats/min) 77 Lying -Blood Pressure (90/60-120/80 mm Hg) 127/57 H -Extremity Use Left Arm -Pulse Rate (60-100 beats/min) 72 Intake and Output for Last 24 Hours 08/15/18 08/16/18 08/17/18 23:59 23:59 23:59 Intake Total 1301 / 1301 552 / 552 Output Total 600 / 600 0 / 0 Balance 701 / 701 552 / 552 Laboratory Results 08/16/18 13:37: WBC 5.0, RBC 3.97 L, Hgb 13.2, Hct 37.3 L, MCV 94.0, MCH 33.2 H, MCHC 35.4, RDW 12.0, RDW Differential 40.9, Plt Count 198, MPV 9.5, Immature Gran % (Auto) 0.800, Neut % (Auto) 63.7, Lymph % (Auto) 19.7, [place] % (Auto) 11.2 H, Eos % (Auto) 4.2, Baso % (Auto) 0.4, Absolute Neuts (auto) 3.2, Absolute Lymphs (auto) 0.98, Total Counted Not Reportable 08/16/18 13:37: PT 13.6, INR 1.0, APTT 27.0 08/16/18 13:37: Sodium 130 L, Potassium 4.5, Chloride 96 L, Carbon Dioxide 28.0, Anion Gap 6, BUN 12, Creatinine 0.79, Estim Creat Clear Calc 54.86, Est GFR (MDRD) Af Amer 121, Est GFR (MDRD) Non-Af 100, BUN/Creatinine Ratio 15.2, Glucose 82, Calcium 8.6, Total Bilirubin 0.40, Direct Bilirubin 0.13, AST 26, ALT 49, Alkaline Phosphatase 82, Total Protein 7.4, Albumin 3.7, Globulin 3.7 08/16/18 13:37: Troponin I < 0.015 08/16/18 18:30: Magnesium 2.3, Troponin I < 0.015, TSH 2.80 08/16/18 20:00: Urine Color Yellow, Urine Clarity Clear, Urine pH 7.0, Ur Specific [place] 1.005, Urine Protein 15 H, Urine Glucose (UA) Normal, Urine Ketones Negative, Urine Occult Blood 10 H, Urine Nitrite Negative, Urine Bilirubin Negative, Urine Urobilinogen Normal, Ur Leukocyte Esterase Negative, Urine RBC 0-5 SEEN, Urine WBC 0-5 SEEN, Ur Squamous Epith Cells 0 SEEN, Urine Bacteria RARE, Urine Mucus 0 SEEN 08/16/18 21:00: Troponin I 0.017 08/17/18 05:57: Sodium 130 L, Potassium 4.1, Chloride 98, Carbon Dioxide 25.0, Anion Gap 7, BUN 22 H, Creatinine 0.76, Estim Creat Clear Calc 54.31, Est GFR (MDRD) Af Amer 125, Est GFR (MDRD) Non-Af 104, BUN/Creatinine Ratio 28.9 H, Glucose 112 H, Calcium 8.2 L Current Medications Acetaminophen (Tylenol) 650 mg PO Q6H PRN PRN PRN Reason: Mild Pain (scale 0-3)/T>100.7 Al Hydroxide/Mg Hydroxide (Mylanta Ii) 30 ml PO Q6H PRN PRN PRN Reason: Gastric Burning Aspirin (Aspirin, Baby) 81 mg PO DAILY@0800 [facility] Atorvastatin Calcium (Lipitor) 80 mg PO QHS [facility] Last Admin: 08/16/18 22:15 Dose: 80 mg Carvedilol (Coreg) 3.125 mg PO BID [facility] Last Admin: 08/16/18 22:15 Dose: 3.125 mg Enoxaparin Sodium (Lovenox) 40 mg SC DAILY@1000 [facility] Influenza Virus Vaccine Quadrival (Fluarix/Fluzone) 0.5 ml IM .ONCE ONE Stop: 08/17/18 10:01 Magnesium Hydroxide (Milk Of Magnesia) 30 ml PO DAILY PRN PRN Reason: Constipation Nitroglycerin (Nitrostat) 0.4 mg SUBLINGUAL Q5M PRN PRN Reason: CARDIAC/CHEST PAIN Ondansetron HCl (Zofran) 4 mg IV Q8H PRN PRN PRN Reason: Nausea Oxycodone HCl (Oxyir) 5 mg PO Q4H PRN PRN PRN Reason: Moderate Pain (pain scale 4-5) Last Admin: 08/17/18 05:41 Dose: 5 mg Psyllium Hydrophilic Mucilloid (Metamucil) 1 packet PO DAILY PRN PRN PRN Reason: CONSTIPATION Senna/Docusate Sodium (Senokot-S, Gala-Colace) 2 tablet PO BID [facility] Last Admin: 08/16/18 22:15 Dose: 2 tablet Sertraline HCl (Zoloft) 50 mg PO DAILY [facility] Sodium Chloride () 5 - 30 ml IV UD PRN PRN Reason: SALINE FLUSH Medical Necessity - Tobacco Use Smoking Status: Former smoker Assessment/Plan All Active Problems Compression fracture of L2 (Acute) Syncope (Acute) Chest pain (Resolved) Patient is an 83-year-old gentleman presenting with a acute mechanical fall. Patient was significantly orthostatic on admission. Imaging studies obtained on admission demonstrated L2 compression fracture admitted to a monitored bed where he is currently undergoing evaluation 1. Acute mechanical fall suspected to be secondary to orthostatic hypotension. Patient has been admitted to a monitored bed for continuous telemetry monitoring. Patient was resuscitated with IV fluids. Ordered serial cardiac enzymes, every shift orthostatic checks as well as a 2D echo 2. L2 compression fracture following patient's for plan is to manage symptomatically however if patient fails conservative management we will consult pain management for consideration for possible epidural steroid injection 3. Hyponatremia chronic 4. Hypertension patient is on carvedilol held 5. CAD per history 6. DVT prophylaxis SC Lovenox Active Medications Acetaminophen (Tylenol) 650 mg PO Q6H PRN PRN PRN Reason: Mild Pain (scale 0-3)/T>100.7 Last Admin: 08/17/18 08:52 Dose: 650 mg Al Hydroxide/Mg Hydroxide (Mylanta Ii) 30 ml PO Q6H PRN PRN PRN Reason: Gastric Burning Aspirin (Aspirin, Baby) 81 mg PO DAILY@0800 [facility] Last Admin: 08/17/18 08:48 Dose: 81 mg Atorvastatin Calcium (Lipitor) 80 mg PO QHS [facility] Last Admin: 08/16/18 22:15 Dose: 80 mg Carvedilol (Coreg) 3.125 mg PO BID [facility] Last Admin: 08/17/18 08:48 Dose: 3.1249 mg Enoxaparin Sodium (Lovenox) 40 mg SC DAILY@1000 [facility] Last Admin: 08/17/18 08:50 Dose: 40 mg Influenza Virus Vaccine Quadrival (Fluarix/Fluzone) 0.5 ml IM .ONCE ONE Stop: 08/17/18 10:01 Last Admin: 08/17/18 08:48 Dose: 0.5 ml Magnesium Hydroxide (Milk Of Magnesia) 30 ml PO DAILY PRN PRN Reason: Constipation Nitroglycerin (Nitrostat) 0.4 mg SUBLINGUAL Q5M PRN PRN Reason: CARDIAC/CHEST PAIN Ondansetron HCl (Zofran) 4 mg IV Q8H PRN PRN PRN Reason: Nausea Oxycodone HCl (Oxyir) 5 mg PO Q4H PRN PRN PRN Reason: Moderate Pain (pain scale 4-5) Last Admin: 08/17/18 05:41 Dose: 5 mg Psyllium Hydrophilic Mucilloid (Metamucil) 1 packet PO DAILY PRN PRN PRN Reason: CONSTIPATION Senna/Docusate Sodium (Senokot-S, Gala-Colace) 2 tablet PO BID [facility] Last Admin: 08/17/18 08:50 Dose: 2 tablet Sertraline HCl (Zoloft) 50 mg PO DAILY [facility] Last Admin: 08/17/18 08:50 Dose: 50 mg Sodium Chloride () 5 - 30 ml IV UD PRN PRN Reason: SALINE FLUSH Code Visit OBSV E&M: 51078 Subsequent observation care L3
--- NOTE | 2018-08-17 14:31 | NURSING ---
Patient's daughter Pearl called for an update. Pearl informed this RN she has serious concerns involving the safety of her parents at home. States that mother has dementia and patient is her primary caregiver responsible for managing insulin administration and chronic back pain. Pearl stated that her mother was recently discharged from [place] with the stipulation that this patient would be responsible for her care. Pearl states patient himself has recently been declining and frequently confused and forgetful himself. States he no longer appears to understand the necessity of checking his 's BG and frequently leaves her home alone. Also states she recently had a conversation with him in which he did not recall his recent cardiac cath with stent placement. Pearl is the POA and hoping for [facility] home placement.
--- NOTE | 2018-08-17 16:24 | CM.UR ---
Met face to face with patient. No family present. Introduced myself and my role. patient denies any needs. Plans to return home. Prior to admission states he was totally independent and he still drove. Still having intermittent lightheadedness. Receives meals on wheels 5 times a week. Therapy evaluated and he was 15 feet contact guard. They recommended ongoing therapy however didn't specifically state skilled or snf. After I met with patient I noted the conversation SIOBHAN Anne had with daughter. States has dementia and he is primary caregiver for her. Requesting SW to follow up with patient to explore further. Graciela Rubin RN, CCM.
[2018-08-17] MEDS: Atorvastatin Calcium 80 MG Tablet PO (19:53)
[2018-08-18] VITALS (11 sets, daily range): BP systolic 119–164; BP diastolic 55–72; PULSE 64–84; RESP 14–17; TEMP 36.6–37.2; O2SAT 93–94
[2018-08-18] MEDS: oxyCODONE 5 MG Tablet PO ×2 (04:30→17:47)
[2018-08-18] MEDS: Aspirin 81 MG TAB.CHEW PO (07:48)
[2018-08-18] MEDS: Acetaminophen 325 MG Tablet 650 MG PO (07:48)
[2018-08-18] MEDS: Carvedilol 3.125 MG TABLET PO ×2 (08:58→21:37)
[2018-08-18] MEDS: Enoxaparin 40 MG/0.4 ML Syringe SC (08:59)
[2018-08-18] MEDS: Sertraline 50 MG Tablet PO (08:59)
[2018-08-18] MEDS: Senna/Docusate Sodium 1 Tablet 2 TABLET PO ×2 (08:59→21:37)
[2018-08-18] MEDS: 0.9% Normal Saline 1,000 ML 75 ML IV ×2 (11:20→22:12)
--- NOTE | 2018-08-18 11:24 | CASEMGMT ---
This RN CM to room with MADRIGAL form at this time, explanation done and pt signed form at this time. Pt is A/O x4 at this time and answers all questions appropriately at this time. Pt states no concerns with going home at time of discharge. Pt states normally cares for at home and states no concerns with going home at this time. Pt states that he got up and had dizziness which caused his fall and subsequent compression fracture. RN CM assessment: Face to Face with patient for initial transition planning/care coordination assessment. RN CM introduced self and role at [facility], pt voices understanding and consents to assessment at this time. Pt is sitting up in chair in no distress at this time. Pt is A/Ox4 at this time and answers all questions appropriately at this time. Care providers, pharmacy, and demographics verified. PCP: Kamari Lopez Pharmacy: [facility] Insurance: [employer] Pres[employer] Benefit: [employer] PT Living Will/HPOA: Pt states has both and that his daughter, Pearl, is HPOA. LNOK: [place], ; [place], daughter(HPOA) Living Arrangements: Pt lives with in 1 story home with 3 steps into home and states no concerns at home at this time. Transportation: Pt states drives self and states no transportation concerns at this time. DME/HHC: Pt states has shower chair and has several walkers and rollater but he does not use any at home at this time. Pt states no concerns with going home at time of discharge. Pt states that he and 'are doing fine' at home together. Pt states no further questions/concerns/needs at this time. Per Omid MCCANN(who took care of pt yesterday), pt's daughter, Pearl, has concerns with pt going home at time of discharge. Per pt, ok for this RN CM to call daughter, Pearl, at this time. Call to Pearl at this time and states that pt has had changes in personality/mood and short term memory loss since at least December. Daughter states that Dr. Benites has tested him for Dementia but he has not been diagnosed. She states that pt cares for his at home and is not to be left alone but pt will forget and leave at home alone. She states that does have CCN currently. Daughter states that she is meeting with a private duty company today to get someone to stay with her mother. Daughter states concerns with why her father's blood pressure dropped and wants to make sure this is fixed prior to discharge. Advised daughter that pt may need further outpt testing as well to diagnose cause, voices understanding. Advised daughter that this RN CM would follow for further therapy notes for pt and that HHC/CCN could possibly be set up for pt, voices understanding. Awaiting PT notes for today at this time. Message left with Wicho from [facility] regarding pt at this time as he has currently. Plan: Home w/ [facility] HHC/CCN? [facility] SIOBHAN CM
[2018-08-18] MEDS: Acetaminophen 500 MG Tablet 1000 MG PO ×2 (13:53→21:37)
--- NOTE | 2018-08-18 15:53 | PCM.PN.HOSP ---
Patient Problems: Active and Suspected Problems Compression fracture of L2 (Acute) Subjective: Patient was seen and examined. Complains of pain in the back pain 03/27. Tylenol given earlier in the morning helped. Orthostatic vitals this morning positive. Denies any diarrhea or nausea or vomiting. Vitals/I&O's: Vital Signs Temp Pulse Resp BP Pulse Ox 97.8 F 66 14 125/55 H 94 08/18/18 15:00 08/18/18 15:00 08/18/18 15:00 08/18/18 15:00 08/18/18 15:00 Oxygen Flow Rate (L/min) 2 Oxygen Delivery Method Room Air Weight: 68.6 kg Body Mass Index (BMI) 21.7 Orthostatic Vital Signs Start: 08/17/18 02:33 Freq: q24h Status: Active Protocol: Activity Type Activity Date Activity User E-Sign Co-Sign Detail Recorded Client Recorded Date Recorded By Document 08/18/18 05:00 MLS [id number] 08/18/18 05:52 MLS 08/18/18 05:00 Orthostatic Vitals Standing -Blood Pressure (90/60-120/80) 142/64 H -Extremity Use Left Arm -Pulse Rate (60-100) 83 Sitting -Blood Pressure (90/60-120/80) 150/67 H -Extremity Use Left Arm -Pulse Rate (60-100) 76 Lying -Blood Pressure (90/60-120/80) 164/72 H -Extremity Use Left Arm -Pulse Rate (60-100) 66 Intake and Output for Last 24 Hours 08/16/18 08/17/18 08/18/18 23:59 23:59 23:59 Intake Total 1301 / 1301 1262 / 1262 770 / 770 Output Total 600 / 600 0 / 0 1000 / 1000 Balance 701 / 701 1262 / 1262 -230 / -230 General: Alert, Oriented x3, Cooperative, No apparent distress HEENT: Atraumatic, PERRLA, EOMI, Normocephalic Oral: Moist Mucosa Neck: Supple, No JVD, Negative Carotid Bruits Lungs: Clear to auscultation, Normal air movement Cardiovascular: Regular rate, Regular Rhythm, Normal S1, Normal S2, No murmurs Abdomen: Bowel Sounds Present, Soft, Non Tender, Non-Distended, No Hepato-splenomegaly Extremities: No edema Skin: No rashes, No breakdown Musculoskeletal: Tenderness - over the lower back Neurological: Cranial nerves II-XII grossly intact Psych/Mental Status: Normal Affect, Appropriate Current Medications Acetaminophen (Tylenol) 1,000 mg PO Q8 [facility] Last Admin: 08/18/18 13:53 Dose: 1,000 mg Al Hydroxide/Mg Hydroxide (Mylanta Ii) 30 ml PO Q6H PRN PRN PRN Reason: Gastric Burning Aspirin (Aspirin, Baby) 81 mg PO DAILY@0800 [facility] Last Admin: 08/18/18 07:48 Dose: 81 mg Atorvastatin Calcium (Lipitor) 80 mg PO QHS [facility] Last Admin: 08/17/18 19:53 Dose: 80 mg Carvedilol (Coreg) 3.125 mg PO BID [facility] Last Admin: 08/18/18 08:58 Dose: 3.125 mg Enoxaparin Sodium (Lovenox) 40 mg SC DAILY@1000 [facility] Last Admin: 08/18/18 08:59 Dose: 40 mg Sodium Chloride () 1,000 mls @ 75 mls/hr IV .[id number] [facility] Last Admin: 08/18/18 11:20 Dose: 75 mls/hr Magnesium Hydroxide (Milk Of Magnesia) 30 ml PO DAILY PRN PRN Reason: Constipation Nitroglycerin (Nitrostat) 0.4 mg SUBLINGUAL Q5M PRN PRN Reason: CARDIAC/CHEST PAIN Ondansetron HCl (Zofran) 4 mg IV Q8H PRN PRN PRN Reason: Nausea Oxycodone HCl (Oxyir) 5 mg PO Q4H PRN PRN PRN Reason: Moderate Pain (pain scale 4-5) Last Admin: 08/18/18 04:30 Dose: 5 mg Psyllium Hydrophilic Mucilloid (Metamucil) 1 packet PO DAILY PRN PRN PRN Reason: CONSTIPATION Senna/Docusate Sodium (Senokot-S, Gala-Colace) 2 tablet PO BID [facility] Last Admin: 08/18/18 08:59 Dose: 2 tablet Sertraline HCl (Zoloft) 50 mg PO DAILY [facility] Last Admin: 08/18/18 08:59 Dose: 50 mg Sodium Chloride () 5 - 30 ml IV UD PRN PRN Reason: SALINE FLUSH Medical Necessity - Tobacco Use Smoking Status: Former smoker Assessment/Plan All Active Problems Compression fracture of L2 (Acute) Syncope (Acute) Chest pain (Resolved) 83-year-old male admitted after an acute mechanical fall and sustains acute L2 compression fracture. 1. Acute mechanical fall suspected to be secondary to orthostatic hypotension. PT and OT consulted. 2. Orthostatic hypotension, unclear etiology, remains orthostatic, will be given IVF. 3. Acute L2 compression fracture, pain management, Dr. Quezada consulted, being followed by PT/OT. 4. Hyponatremia, chronic, remains the same 4. Hypertension, controlled on home regimen 5. CAD, on aspirin, statin, beta-leyla, nitro prn 6. DVT prophylaxis SC Lovenox Code Visit Inpatient E&M: 47402 Subs Hosp L2
--- NOTE | 2018-08-18 16:12 | PN_ITS ---
Patient Problems: Active and Suspected Problems Compression fracture of L2 (Acute) Subjective: Patient was seen and examined. Complains of pain in the back pain 03/27. Tylenol given earlier in the morning helped. Orthostatic vitals this morning positive. Denies any diarrhea or nausea or vomiting. Vitals/I&O's: Vital Signs Temp Pulse Resp BP Pulse Ox 97.8 F 66 14 125/55 H 94 08/18/18 15:00 08/18/18 15:00 08/18/18 15:00 08/18/18 15:00 08/18/18 15:00 Oxygen Flow Rate (L/min) 2 Oxygen Delivery Method Room Air Weight: 68.6 kg Body Mass Index (BMI) 21.7 Orthostatic Vital Signs Start: 08/17/18 02:33 Freq: q24h Status: Active Protocol: Activity Type Activity Date Activity User E-Sign Co-Sign Detail Recorded Client Recorded Date Recorded By Document 08/18/18 05:00 MLS [id number] 08/18/18 05:52 MLS 08/18/18 05:00 Orthostatic Vitals Standing -Blood Pressure (90/60-120/80) 142/64 H -Extremity Use Left Arm -Pulse Rate (60-100) 83 Sitting -Blood Pressure (90/60-120/80) 150/67 H -Extremity Use Left Arm -Pulse Rate (60-100) 76 Lying -Blood Pressure (90/60-120/80) 164/72 H -Extremity Use Left Arm -Pulse Rate (60-100) 66 Intake and Output for Last 24 Hours 08/16/18 08/17/18 08/18/18 23:59 23:59 23:59 Intake Total 1301 / 1301 1262 / 1262 770 / 770 Output Total 600 / 600 0 / 0 1000 / 1000 Balance 701 / 701 1262 / 1262 -230 / -230 General: Alert, Oriented x3, Cooperative, No apparent distress HEENT: Atraumatic, PERRLA, EOMI, Normocephalic Oral: Moist Mucosa Neck: Supple, No JVD, Negative Carotid Bruits Lungs: Clear to auscultation, Normal air movement Cardiovascular: Regular rate, Regular Rhythm, Normal S1, Normal S2, No murmurs Abdomen: Bowel Sounds Present, Soft, Non Tender, Non-Distended, No Hepato- splenomegaly Extremities: No edema Skin: No rashes, No breakdown Musculoskeletal: Tenderness - over the lower back Neurological: Cranial nerves II-XII grossly intact Psych/Mental Status: Normal Affect, Appropriate Current Medications Acetaminophen (Tylenol) 1,000 mg PO Q8 [facility] Last Admin: 08/18/18 13:53 Dose: 1,000 mg Al Hydroxide/Mg Hydroxide (Mylanta Ii) 30 ml PO Q6H PRN PRN PRN Reason: Gastric Burning Aspirin (Aspirin, Baby) 81 mg PO DAILY@0800 [facility] Last Admin: 08/18/18 07:48 Dose: 81 mg Atorvastatin Calcium (Lipitor) 80 mg PO QHS [facility] Last Admin: 08/17/18 19:53 Dose: 80 mg Carvedilol (Coreg) 3.125 mg PO BID [facility] Last Admin: 08/18/18 08:58 Dose: 3.125 mg Enoxaparin Sodium (Lovenox) 40 mg SC DAILY@1000 [facility] Last Admin: 08/18/18 08:59 Dose: 40 mg Sodium Chloride () 1,000 mls @ 75 mls/hr IV .[id number] [facility] Last Admin: 08/18/18 11:20 Dose: 75 mls/hr Magnesium Hydroxide (Milk Of Magnesia) 30 ml PO DAILY PRN PRN Reason: Constipation Nitroglycerin (Nitrostat) 0.4 mg SUBLINGUAL Q5M PRN PRN Reason: CARDIAC/CHEST PAIN Ondansetron HCl (Zofran) 4 mg IV Q8H PRN PRN PRN Reason: Nausea Oxycodone HCl (Oxyir) 5 mg PO Q4H PRN PRN PRN Reason: Moderate Pain (pain scale 4-5) Last Admin: 08/18/18 04:30 Dose: 5 mg Psyllium Hydrophilic Mucilloid (Metamucil) 1 packet PO DAILY PRN PRN PRN Reason: CONSTIPATION Senna/Docusate Sodium (Senokot-S, Gala-Colace) 2 tablet PO BID [facility] Last Admin: 08/18/18 08:59 Dose: 2 tablet Sertraline HCl (Zoloft) 50 mg PO DAILY [facility] Last Admin: 08/18/18 08:59 Dose: 50 mg Sodium Chloride () 5 - 30 ml IV UD PRN PRN Reason: SALINE FLUSH Medical Necessity - Tobacco Use Smoking Status: Former smoker Assessment/Plan All Active Problems Compression fracture of L2 (Acute) Syncope (Acute) Chest pain (Resolved) 83-year-old male admitted after an acute mechanical fall and sustains acute L2 compression fracture. 1. Acute mechanical fall suspected to be secondary to orthostatic hypotension. PT and OT consulted. 2. Orthostatic hypotension, unclear etiology, remains orthostatic, will be given IVF. 3. Acute L2 compression fracture, pain management, Dr. Quezada consulted, being followed by PT/OT. 4. Hyponatremia, chronic, remains the same 4. Hypertension, controlled on home regimen 5. CAD, on aspirin, statin, beta-leyla, nitro prn 6. DVT prophylaxis SC Lovenox Code Visit Inpatient E&M: 38602 Subs Hosp L2
--- NOTE | 2018-08-18 19:46 | NURSING ---
Patients daughter on phone concerned that the pateint had called his and told her he would be discharged in the a.m.. Daughters concerned that he may not be able to take care of his at home, left message for binder caser.
[2018-08-18] MEDS: Atorvastatin Calcium 80 MG Tablet PO (21:37)
[2018-08-19] VITALS (7 sets, daily range): BP systolic 119–169; BP diastolic 54–83; PULSE 64–81; RESP 15–18; TEMP 36.6–37.2; O2SAT 94–96
[2018-08-19] MEDS: oxyCODONE 5 MG Tablet PO ×2 (01:25→06:27)
[2018-08-19 06:07] LABS: Absolute Lymphocyte Count 1.18 X10^3/ul (0.83-4.51); Absolute Neutrophil Count 4.5 X10^3/uL (2.0-7.7); Basophil# 0.01 X10^3/uL; Basophil% 0.1 % (0-1); Eosinophil# 0.21 X10^3/uL; Eosinophils% 3.1 % (0-5); Hematocrit 33.3 % (40-54); Hemoglobin 11.5 g/dl (13.0-16.5); Lymphocyte # 1.18 X10^3/ul (4.0); Lymphocyte % 17.3 % (19-41); Mean Corp Hgb Conc 34.5 g/gl (32-36); Mean Corpuscular Hgb 32.4 pg (27.0-32.0); Mean Corpuscular Volume 93.8 fL (80-94); Mean Platelet Vol. 8.9 fl (6.2-12.0); Monocyte# 0.96 X10^3/uL; Monocyte% 14.1 % (0-10); Neutrophil # 4.46 X10^3/uL (2.7-7.7); Neutrophil % 65.4 % (47-70); Platelet Count 167 K/mm3 (150-450); RBC Distribution Width CV 12.6 % (11.6-14.6); RBC Distribution Width SD 42.9 fl (35.1-43.9); Red Blood Count 3.55 M/mm3 (4.6-6.2); White Blood Count 6.8 K/mm3 (4.4-11.0)
[2018-08-19 06:15] LABS: POSITIVE COUNT NO; POSITIVE DIFFERENTIAL NO; POSITIVE MORPHOLOGY NO
--- NOTE | 2018-08-19 06:22 | NURSING ---
pt extremely painful with orthostatic blood pressures, made NPO until seen by dr Quezada.
[2018-08-19 06:25] LABS: Anion Gap 7 (5-15); BUN 12 mg/dL (7-18); Calcium,Total 8.1 mg/dL (8.5-10.1); Chloride 101 mmol/L (98-107); Creatinine, Serum 0.57 mg/dL (0.70-1.30); EST Glomerular Filtration Rate 144 mL/min (>60); Est Glom Filt Rate - Afr Amer 175 mL/min (>60); Estimated Creatinine Clearance 54.31 ml/min; Glucose 98 mg/dL (74-106); Potassium 4.1 mmol/L (3.5-5.1); Sodium Level 135 mmol/L (136-145)
[2018-08-19] MEDS: Acetaminophen 500 MG Tablet 1000 MG PO ×2 (07:40→13:53)
[2018-08-19] MEDS: 0.9% NaCl Peripheral Flush Adult/Peds IV (07:41)
[2018-08-19] MEDS: Carvedilol 3.125 MG TABLET PO (09:10)
[2018-08-19] MEDS: Senna/Docusate Sodium 1 Tablet 2 TABLET PO (09:10)
[2018-08-19] MEDS: Sertraline 50 MG Tablet PO (09:10)
[2018-08-19] MEDS: 0.9% Normal Saline 1,000 ML 75 ML IV (09:11)
--- NOTE | 2018-08-19 09:40 | CASEMGMT ---
SW spoke with therapy this am and patient would really benefit from going to a SNF. She said she really cannot see him caring for himself at home. SW spoke with patient and discussed this concern. He agreed it would not be a great idea. SW told him about TCU. He mentioned [place] as his went there and liked it. He said he would talk with his . SW told him SW will check back with him. Rena IRENE MSW
--- NOTE | 2018-08-19 09:53 | PCM.PN.HOSP ---
Patient Problems: Active and Suspected Problems Compression fracture of L2 (Acute) Subjective: Patient was seen and examined. Complains of pain being less of 5 out of 10. Seen by Dr. Quezada, patient refused surgical treatment. Preferred to treat this conservatively. Discussed with patient; he states that his had surgical treatment for her back and was left with a foot drop and use of walker. He denied any fever or chills or dizziness or palpitations. Objective: General: Alert, Oriented x3, Cooperative, No apparent distress HEENT: Atraumatic, PERRLA, EOMI, Normocephalic Oral: Moist Mucosa Neck: Supple, No JVD, Negative Carotid Bruits Lungs: Clear to auscultation, Normal air movement Cardiovascular: Regular rate, Regular Rhythm, Normal S1, Normal S2, No murmurs Abdomen: Bowel Sounds Present, Soft, Non Tender, Non-Distended, No Hepato-splenomegaly Extremities: No edema Skin: No rashes, No breakdown Musculoskeletal: Tenderness - over the lower back Neurological: Cranial nerves II-XII grossly intact Psych/Mental Status: Normal Affect, Appropriate Vitals/I&O's: Vital Signs Temp Pulse Resp BP Pulse Ox 98.4 F 71 16 119/54 L 94 08/19/18 07:49 08/19/18 07:49 08/19/18 07:49 08/19/18 07:49 08/19/18 07:49 Oxygen Flow Rate (L/min) 2 Oxygen Delivery Method Room Air Weight: 68.6 kg Body Mass Index (BMI) 21.7 Orthostatic Vital Signs Start: 08/17/18 02:33 Freq: q24h Status: Active Protocol: Activity Type Activity Date Activity User E-Sign Co-Sign Detail Recorded Client Recorded Date Recorded By Document 08/19/18 06:12 DCK [id number] 08/19/18 06:20 DCK 08/19/18 06:12 Orthostatic Vitals Standing -Blood Pressure (90/60-120/80) 155/65 H -Extremity Use Right Arm -Pulse Rate (60-100) 81 Sitting -Blood Pressure (90/60-120/80) 149/83 H -Extremity Use Right Arm -Pulse Rate (60-100) 74 Lying -Blood Pressure (90/60-120/80) 169/80 H -Extremity Use Right Arm -Pulse Rate (60-100) 69 Intake and Output for Last 24 Hours 08/17/18 08/18/18 08/19/18 23:59 23:59 23:59 Intake Total 1262 / 1262 1466 / 1466 1022 / 1022 Output Total 0 / 0 1300 / 1300 Balance 1262 / 1262 166 / 166 1022 / 1022 Laboratory Results 08/19/18 05:46: WBC 6.8, RBC 3.55 L, Hgb 11.5 L, Hct 33.3 L, MCV 93.8, MCH 32.4 H, MCHC 34.5, RDW 12.6, RDW Differential 42.9, Plt Count 167, MPV 8.9, Immature Gran % (Auto) 0.000, Neut % (Auto) 65.4, Lymph % (Auto) 17.3 L, [place] % (Auto) 14.1 H, Eos % (Auto) 3.1, Baso % (Auto) 0.1, Absolute Neuts (auto) 4.5, Absolute Lymphs (auto) 1.18, Total Counted Not Reportable 08/19/18 05:46: Sodium 135 L, Potassium 4.1, Chloride 101, Carbon Dioxide 27.0, Anion Gap 7, BUN 12, Creatinine 0.57 L, Estim Creat Clear Calc 54.31, Est GFR (MDRD) Af Amer 175, Est GFR (MDRD) Non-Af 144, BUN/Creatinine Ratio 21.0 H, Glucose 98, Calcium 8.1 L Current Medications Acetaminophen (Tylenol) 1,000 mg PO Q8 [facility] Last Admin: 08/19/18 07:40 Dose: 1,000 mg Al Hydroxide/Mg Hydroxide (Mylanta Ii) 30 ml PO Q6H PRN PRN PRN Reason: Gastric Burning Aspirin (Aspirin, Baby) 81 mg PO DAILY@0800 [facility] Last Admin: 08/19/18 09:06 Dose: Not Given Atorvastatin Calcium (Lipitor) 80 mg PO QHS [facility] Last Admin: 08/18/18 21:37 Dose: 80 mg Carvedilol (Coreg) 3.125 mg PO BID [facility] Last Admin: 08/19/18 09:10 Dose: 3.125 mg Enoxaparin Sodium (Lovenox) 40 mg SC DAILY@1000 [facility] Last Admin: 08/19/18 09:06 Dose: Not Given Sodium Chloride () 1,000 mls @ 75 mls/hr IV .[id number] [facility] Last Admin: 08/19/18 09:11 Dose: 75 mls/hr Magnesium Hydroxide (Milk Of Magnesia) 30 ml PO DAILY PRN PRN Reason: Constipation Nitroglycerin (Nitrostat) 0.4 mg SUBLINGUAL Q5M PRN PRN Reason: CARDIAC/CHEST PAIN Ondansetron HCl (Zofran) 4 mg IV Q8H PRN PRN PRN Reason: Nausea Oxycodone HCl (Oxyir) 5 mg PO Q4H PRN PRN PRN Reason: Moderate Pain (pain scale 4-5) Last Admin: 08/19/18 06:27 Dose: 5 mg Psyllium Hydrophilic Mucilloid (Metamucil) 1 packet PO DAILY PRN PRN PRN Reason: CONSTIPATION Senna/Docusate Sodium (Senokot-S, Gala-Colace) 2 tablet PO BID [facility] Last Admin: 08/19/18 09:10 Dose: 2 tablet Sertraline HCl (Zoloft) 50 mg PO DAILY [facility] Last Admin: 08/19/18 09:10 Dose: 50 mg Sodium Chloride () 5 - 30 ml IV UD PRN PRN Reason: SALINE FLUSH Last Admin: 08/19/18 07:41 Dose: 10 ml Medical Necessity - Tobacco Use Smoking Status: Former smoker Assessment/Plan All Active Problems Compression fracture of L2 (Acute) Syncope (Acute) Chest pain (Resolved) 83-year-old male admitted after an acute mechanical fall and sustains acute L2 compression fracture. 1. Acute mechanical fall suspected to be secondary to orthostatic hypotension. PT and OT consulted. 2. Orthostatic hypotension, unclear etiology, orthostatic vitals improved today, will continue on IV fluids, recheck in a.m. 3. Acute L2 compression fracture, his pain is fairly controlled, refuses pain management and surgical options with Dr. Quezada 4. Cognitive impairment in keeping with dementia, likely Alzheimer's, patient is able to do his basic ADLs but is lacking in his IADLs. Per daughter, he had failed clock drawing test done recently. Patient seems to be compensating; has been denying deficits with irritability and lots of arguments with his daughter. Daughter is looking into discharge disposition with 24/7 care or possibly assisted living facility for both parents. Patient will need loss of guidance from social work with regards to care for parents with Dementia. She was referred to Alzheimer's disease society. She hastheir contact because of her mother. 5. Hyponatremia, chronic, slightly improved at 135, will continue to monitor 6. Hypertension, controlled on home regimen 7. CAD, on aspirin, statin, beta-leyla, nitro prn 8. DVT prophylaxis SC Lovenox 9. Disposition: Waiting on insurance precertification for discharge to TCU Had an extensive meeting with the family with regards to concerns of cognitive impairment and discharge disposition. I spent 30 minutes going over the current plan of care as well as discharge to residential facility preferably TCU and post discharge from TCU. All questions were answered from patient, , and daughter. Code Visit Inpatient E&M: 49058 Subs Hosp L2 Procedures: 70102 Prolonged InPt Service; first hour
--- NOTE | 2018-08-19 10:03 | CASEMGMT ---
SW received a phone call from patient's daughter. She was wondering what was going on with patient today. SW told her about conversation with therapy and patient. She was happy to hear he would be agreeable to going somewhere. JENELLE told her that he was going to talk with his to decide where. JENELLE asked her to please call him and encourage him to make a decision. She said she will do this. Rena IRENE MSW
--- NOTE | 2018-08-19 14:15 | CASEMGMT ---
This SIOBHAN GERMAIN received call back from Wicho at [facility] and he states that [facility] would be able to take pt. He is aware that pt may be going to SNF and he states that they will f/u with pt upon SNF discharge. Referral for [facility] placed as order at this time. Saurabh MCCANN CM
--- NOTE | 2018-08-19 15:00 | CASEMGMT ---
SW went back to patient's room to talk with patient and his as well as daughter were present. JENELLE spoke with daughter in the hallway per her request. She told SW that her parents are not safe at home. She said patient is not agreeing to go somewhere for rehab anymore. JENELLE spoke with patient and explained therapy's recommendation and that he is not safe for home right now. At that time the physician then came into the room so SW left. JENELLE spoke with physician when she came out of the room and she said patient will go to TCU. JENELLE spoke with Tyra on post acute referral line and she said they can take patient today. Information was faxed to [facility] for insurance authorization. Rena IRENE MSW
--- NOTE | 2018-08-19 15:40 | CASEMGMT ---
SW went back to patient's room to talk with patient and his as well as daughter were present. JENELLE spoke with daughter in the hallway per her request. She told SW that her parents are not safe at home. She said patient is not agreeing to go somewhere for rehab anymore. JENELLE spoke with patient and explained therapy's recommendation and that he is not safe for home right now. At that time the physician then came into the room so SW left. JENELLE spoke with physician when she came out of the room and she said patient will go to TCU. JENELLE spoke with Tyra on post acute referral line and she said they can take patient today. Information was faxed to [facility] for insurance authorization. Rena IRENE MSW
--- NOTE | 2018-08-19 15:49 | PCM.TXEXTCAR ---
- Diet 08/19/18 09:41 Diet: Regular Diet Is pt able to select menu?: Yes - Routine Orders/Code Status Routine Lab Work: CBC - in1 week, BMP - in 1 week - Wound(s) Right Elbow Wound Type: Abrasion - Therapies Extremity Affected:: Bilateral Lower Physical Therapy: Eval and Treat Occupational Therapy: Eval and Treat Speech Therapy: Eval and Treat - for cognitive impairment exercises - Allergies/Procedures Done in Hospital Allergies/Adverse Reactions: Allergies Penicillins Allergy (Verified 08/16/18 13:34) Unknown - Type of Care/Length of Stay Estimated LOS: Convalescent Care Less Than 30 days Type of Care Needed: Skilled Rehab Potential: Good Prognosis: Good - Additional Orders/Day of Discharge Additional Orders: Patient will need a DEXA scan to assist diagnose osteoporosis on discharge from TCU Day of Discharge: 08/19/18 - Follow Up Care Primary Care Physician: Shasta Benites MD [Primary Care Provider] - Please follow up with your Primary Care Physician in: within 2 weeks of discharge
--- NOTE | 2018-08-19 16:02 | PCM.DC.SUM ---
Discharge Date and Diagnosis - Problem List Patient Problems: Active and Suspected Problems Fall (Acute) Orthostatic hypotension (Acute) Date of Admission: 08/16/18 Date of Discharge: 08/19/18 - Primary Discharge Diagnosis Active and Suspected Problems Compression fracture of L2 (Acute) Orthostatic hypotension Hyponatremia Cognitive impairment - Secondary Discharge Diagnosis Chronic Problems Hyponatremia (Chronic) Normochromic normocytic anemia (Chronic) Anxiety (Chronic) Alcohol abuse (Chronic) CAD (coronary artery disease) (Chronic) Hospital Course and Treatment Imaging Results: 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 No visualized evidence of acute hemorrhage or infarct or edema. Electronically Signed: Liza Saeed MD at 15:30 EDT Tel , Service support , Cervical Spine CT 08/16/18 13:53 IMPRESSION: 1. Multilevel degenerative changes, as described above. 2. Straightening of the cervical spine which could be due to muscle spasm. 3. No demonstrated acute fracture or subluxation. 4. If symptoms persist, MRI of the cervical spine is recommended. Electronically Signed: Mac Pool MD at 15:15 EDT Tel , Service support , Abdomen/Pelvis CTA 08/16/18 14:03 IMPRESSION: 1. No evidence of pneumothorax or focal pulmonary contusion. 2. Atelectasis or scarring in the left lower lobe. Underlying pulmonary nodule cannot be excluded. 3. No demonstrated definite rib fracture. Electronically Signed: Mac Pool MD at 15:37 EDT Tel , Service support , Chest CTA 08/16/18 14:03 IMPRESSION: 1. No evidence of pneumothorax or focal pulmonary contusion. 2. Atelectasis or scarring in the left lower lobe. Underlying pulmonary nodule cannot be excluded. 3. No demonstrated definite rib fracture. Electronically Signed: Mac Pool MD at 15:37 EDT Tel , Service support , Lumbar Spine CT 08/16/18 14:42 None Operations: None Procedures: None Summary of Care Provided: 83-year-old male admitted after an acute mechanical fall and sustains acute L2 compression fracture. 1. Acute mechanical fall suspected to be secondary to orthostatic hypotension, seen by PT and OT 2. Orthostatic hypotension, unclear etiology, with IV fluids, needs to be followed up in rehab 3. Acute L2 compression fracture, management consulted, refused to have any procedure for his compression fracture, versus conservative management. 4. Cognitive impairment in keeping with dementia, likely Alzheimer's, patient is able to do his basic ADLs but is lacking in his IADLs. Per daughter, he had failed clock drawing test done recently. Patient seems to be compensating; has been denying deficits with irritability and lots of arguments with his daughter. Daughter is looking into discharge disposition with 24/ care or possibly assisted living facility for both parents. Patient will need loss of guidance from social work with regards to care for parents with Dementia. She was referred to Alzheimer's disease society. She has their contact because of her mother. 5. Hyponatremia, chronic, improved, BMP needs to be followed 6. Hypertension, controlled on home regimen 7. CAD, on aspirin, statin, beta-annie, nitro prn Discharge Diet: Low fat/ Low Cholesterol, 2000 mg Sodium Diet Discharge Activity: Return to Normal Activity Home Medications: Medications to take at Discharge Aspirin [Aspirin, Baby] 81 mg PO DAILY@0800 10/04/16 Atorvastatin Calcium [Lipitor] 80 mg PO QHS 10/04/16 Carvedilol [Coreg (Beta Annie)] 3.125 mg PO BID 10/04/16 Nitroglycerin [Nitrolingual [place]] 0.4 mg SL PRN PRN 10/04/16 Sertraline HCl [Zoloft] 50 mg PO DAILY 08/16/18 Acetaminophen [Tylenol] 1,000 mg PO Q8 08/19/18 Calcium (Elemental) [Os-Yung 500] 500 mg PO DAILY@0800 08/19/18 Cholecalciferol (Vitamin D3) [Vitamin D3] 1,000 unit PO DAILY 08/19/18 Enoxaparin [Lovenox] 40 mg SC DAILY@1000 08/19/18 Oxycodone [Oxyir] 5 mg PO Q4H PRN PRN 3 Days #10 tablet 08/19/18 Senna/Docusate Sodium [Senokot-S] 2 tablet PO BID 08/19/18 Primary Care Physician: Shasta Benites MD [Primary Care Provider] - Please follow up with your Primary Care Physician in: within 2 weeks of discharge Disposition: Retirement facility Minutes spent on discharge:: 40 Patient Condition:: Stable Medical Necessity - Tobacco Use Smoking Status: Former smoker Meaningful Use Info Meaningful Use Diagnoses (Choose all that apply): None applicable Code Visit Inpatient E&M: 50890 Subs Hosp L2
--- NOTE | 2018-08-19 16:28 | NURSING ---
RE[PORT CALLED TO JOSSELINE IN TCU
--- NOTE | 2018-08-19 16:58 | CASEMGMT ---
SW called Kim at [facility] and she approved patient for TCU. SW notified Tyra that he was approved and will be coming today. SW spoke with patient and let him know. RN called daughter to notify her. Plan: [facility] TCU under skilled level of care. Rena IRENE MSW
== END 2018-08-19 16:51 | disposition skilled nursing facility (03) ==
LOC: ED 15:01 → PCU 17:10
PROVIDERS: Admitting Provider Internal Medicine; Emergency Provider Emergency Medicine; Family Provider Internal Medicine; PCP Internal Medicine; Visit Provider Internal Medicine
DX: S32.029A Unspecified fracture of second lumbar vertebra, initial encounter for closed fracture (principal); W18.39XA Other fall on same level, initial encounter; Y93.01 Activity, walking, marching and hiking; Y92.9 Unspecified place or not applicable; I95.1 Orthostatic hypotension; E87.1 Hypo-osmolality and hyponatremia; I25.10 Atherosclerotic heart disease of native coronary artery without angina pectoris; Z23 Encounter for immunization; Z79.899 Other long term (current) drug therapy; Z79.82 Long term (current) use of aspirin; F41.9 Anxiety disorder, unspecified; F03.90 Unspecified dementia, unspecified severity, without behavioral disturbance, psychotic disturbance, mood disturbance, and anxiety; I10 Essential (primary) hypertension; Z87.891 Personal history of nicotine dependence; I25.2 Old myocardial infarction
CPT/HCPCS: 36415; 70450; 71275; 72125; 72131; 74174; 80048; 80076; 81001; 83735; 84443; 84484; 85025; 85610; 85730; 93005; 96361; 96372; 96374; 96375; 97162; 97166; 97530; 97535; 99218; 99285; G0008; J7030; J7040; J7050; 90686; A4216; G0378

== ENCOUNTER 2018-08-19 16:52 | Inpatient (IN) | payer MEDICARE, SELFPAY ==
[2018-08-19 16:55] VITALS: BP 165/80; PULSE 65; RESP 18; TEMP 36.3; O2SAT 96; BMI 22.4
--- NOTE | 2018-08-19 18:49 | NURSING ---
pt arrived via WC from [facility] at [id number]
[2018-08-19] MEDS: Atorvastatin Calcium 80 MG Tablet PO (20:01)
[2018-08-19] MEDS: Acetaminophen 500 MG Tablet 1000 MG PO (20:01)
--- NOTE | 2018-08-19 20:02 | NURSING ---
Flushed pt saline lock with 10 ml normal saline flush patent no s/sx of infiltration. Pt tolerated flush well no concerns voiced at this time.
--- NOTE | 2018-08-19 20:07 | NURSING ---
Discussed code status with patient, patient wishes to be a DNRCC-A with no Intubation.
--- NOTE | 2018-08-19 20:19 | PCM.HP.STD ---
Problem List (1) Fall Status: Acute (2) Orthostatic hypotension Status: Acute (3) Hyperlipidemia Status: Chronic (4) Depression Status: Chronic (5) Alzheimer's disease Status: Chronic (6) Compression fracture of L2 Status: Acute (7) Hyponatremia Status: Chronic (8) Anxiety Status: Chronic (9) Alcohol abuse Status: Chronic (10) CAD (coronary artery disease) Status: Chronic History of Present Illness Date of Admission: 08/19/18 Chief Complaint: Here for rehabilitation, strengthening, prior to disposition determination. The patient is a 83 year old Male with below past medical history presented to [facility] Emergency Department 08/16/2018 with fall. 08/16/2018 CT brain chronic severe pansinusitis, left eye prosthesis. 08/16/2018 CT Cervical spine, multilevel degenerative changes, muscle spasm. 08/16/2018 EKG sinus bradycardia with 1st degree AV block, otherwise normal EKG. 08/16/2018 CTA chest left lower lobe atelectasis or scarring, negative pulmonary embolism. 08/16/2018 CTA abdomen/pelvis negative. 08/16/2018 CT lumbar spine showed acute L2 compression fracture. Fall, back pain, right hip pain. Neck stiffness. Sodium 130. Fentanyl for pain. Unable to ambulate. Blood pressure 67/50. 08/16/2018 Admit to Hospital. IV fluids, serial cardia enzymes. Dr. Quezada consulted but patient refused surgical intervention. PT/OT consulted. 08/19/2018 Admit to TCU with debility, here for rehabilitation, strengthening, prior to disposition determination. Past Medical History Past Medical History (Chronic Problems): Chronic Problems Hyperlipidemia (Chronic) Depression (Chronic) Alzheimer's disease (Chronic) Hyponatremia (Chronic) Normochromic normocytic anemia (Chronic) Anxiety (Chronic) Alcohol abuse (Chronic) CAD (coronary artery disease) (Chronic) Allergies Penicillins Allergy (Verified 08/16/18 13:34) Unknown Home Medications: Ambulatory Orders Medication Instructions Recorded Aspirin [Aspirin, Baby] 81 mg PO DAILY@0800 10/04/16 Atorvastatin Calcium [Lipitor] 80 mg PO QHS 10/04/16 Carvedilol [Coreg (Beta Annie)] 3.125 mg PO BID 10/04/16 Nitroglycerin [Nitrolingual Exira] 0.4 mg SL PRN PRN 10/04/16 Sertraline HCl [Zoloft] 50 mg PO DAILY 08/16/18 Acetaminophen [Tylenol] 1,000 mg PO Q8 08/19/18 Calcium (Elemental) [Os-Yung 500] 500 mg PO DAILY@0800 08/19/18 Cholecalciferol (Vitamin D3) 1,000 unit PO DAILY 08/19/18 [Vitamin D3] Enoxaparin [Lovenox] 40 mg SC DAILY@1000 08/19/18 Oxycodone [Oxyir] 5 mg PO Q4H PRN PRN 3 Days #10 08/19/18 tablet Senna/Docusate Sodium [Senokot-S] 2 tablet PO BID 08/19/18 Surgical History: appendectomy, cataract, - - Left eye surgery, appendectomy. Psychiatric History: Depression Lives: Spouse/ Significant Other Smoking Status: Former smoker Tobacco Use: Non-smoker Alcohol: Heavy Drugs: None - *Family History Maternal History Items: Cancer - Mother of leukemia Paternal History Items: No pertinent history Review of Systems Constitutional: Denies: Chills, Fever, Weight Change HEENT: Denies: Head Aches, Sinus Congestion, Sinus Drainage Cardiovascular: Denies: Chest Pain, Palpitations Respiratory: Denies: Cough, Shortness of breath at rest, Sputum production Gastrointestinal: Denies: Abdominal Pain, Nausea, Vomiting Genitourinary: Denies: Dysuria Musculoskeletal: Denies: Joint Pain, Joint Tenderness Skin: Denies: Rash, Wounds Neurological: Denies: Numbness, Tingling, Focal weakness Psychiatric: Denies: Anxiety, Depression, Homicidal Ideations, Suicidal Ideations Hematologic/ Lymphatic: Denies: Easy Bruising, Easy Bleeding VTE Information - Inpt Only VTE Present on Admission: No VTE Mechan Device Prophylaxis: Knee High CHA Hose VTE Pharm Prophylaxis ordered?: Yes Patient Problems: Active and Suspected Problems Fall (Acute) Orthostatic hypotension (Acute) - Physical Exam General: Alert, Oriented x3, Cooperative HEENT: Atraumatic, PERRLA, EOMI, Normocephalic Neck: Supple, No JVD, Negative Carotid Bruits Lungs: Clear to auscultation, Normal air movement Cardiovascular: Regular rate, No murmurs Abdomen: Bowel Sounds Present, Soft, Non Tender Extremities: No edema, Capillary Refill Less than 3 Seconds Skin: No rashes, No breakdown Musculoskeletal: No Tenderness to Palpation of Joints or Extremities Neurological: Cranial nerves II-XII grossly intact Psych/Mental Status: Normal Affect, Appropriate Vital Signs Temp Pulse Resp BP Pulse Ox 97.4 F L 65 18 165/80 H 96 08/19/18 16:55 08/19/18 16:55 08/19/18 16:55 08/19/18 16:55 08/19/18 16:55 Oxygen Delivery Method Room Air Weight: 70.76 kg Body Mass Index (BMI) 22.4 Intake and Output for Last 24 Hours 08/17/18 08/18/18 08/19/18 23:59 23:59 23:59 Intake Total 240 / 240 Balance 240 / 240 Assessment/Plan All Active Problems Compression fracture of L2 (Acute) Fall (Acute) Orthostatic hypotension (Acute) Syncope (Acute) Chest pain (Resolved) 83 year old male with below past medical history hospitalized for fall, acute L2 compression fracture, admitted to TCU with debility, here for rehabilitation, strengthening, prior to disposition determination. Debility - PT/OT. Cognitive Impairment - ST. Pain - Tylenol 1000MG Q8H, Oxycodone 5MG Q4H PRN moderate pain. Bowel - Miralax 17GM daily, Senna/colace 2 tablets BID, Dulcolax 10MG PO daily PRN. Pneumonia vaccination - Administer Prevnar 13 and/or Pneumovax 23 as necessary. DVT prophylaxis - Lovenox 40MG SC daily. Coronary Artery Disease - Coreg 3.125MG BID, Aspirin 81MG daily, NTG 0.4MG SL Q5M PRN chest pain. Hyperlipidemia - Atorvastatin 80MG QHS. Calcium deficiency - OsCal 500MG daily. Vitamin D deficiency - D3 1000IU daily. Skin irritation - Calmoseptine BID bilateral buttocks/coccyx. Depression - Sertraline 50MG daily. 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 Disposition - Consider Assisted Living or congregate living situation.
--- NOTE | 2018-08-19 20:24 | HP.PCM_ITS ---
Problem List (1) Fall Status: Acute (2) Orthostatic hypotension Status: Acute (3) Hyperlipidemia Status: Chronic (4) Depression Status: Chronic (5) Alzheimer's disease Status: Chronic (6) Compression fracture of L2 Status: Acute (7) Hyponatremia Status: Chronic (8) Anxiety Status: Chronic (9) Alcohol abuse Status: Chronic (10) CAD (coronary artery disease) Status: Chronic History of Present Illness Date of Admission: 08/19/18 Chief Complaint: Here for rehabilitation, strengthening, prior to disposition determination. The patient is a 83 year old Male with below past medical history presented to [facility] Emergency Department 08/16/2018 with fall. 08/16/2018 CT brain chronic severe pansinusitis, left eye prosthesis. 08/16/2018 CT Cervical spine, multilevel degenerative changes, muscle spasm. 08/16/2018 EKG sinus bradycardia with 1st degree AV block, otherwise normal EKG. 08/16/2018 CTA chest left lower lobe atelectasis or scarring, negative pulmonary embolism. 08/16/2018 CTA abdomen/pelvis negative. 08/16/2018 CT lumbar spine showed acute L2 compression fracture. Fall, back pain, right hip pain. Neck stiffness. Sodium 130. Fentanyl for pain. Unable to ambulate. Blood pressure 67/50. 08/16/2018 Admit to Hospital. IV fluids, serial cardia enzymes. Dr. Quezada consulted but patient refused surgical intervention. PT/OT consulted. 08/19/2018 Admit to TCU with debility, here for rehabilitation, strengthening, prior to disposition determination. Past Medical History Past Medical History (Chronic Problems): Chronic Problems Hyperlipidemia (Chronic) Depression (Chronic) Alzheimer's disease (Chronic) Hyponatremia (Chronic) Normochromic normocytic anemia (Chronic) Anxiety (Chronic) Alcohol abuse (Chronic) CAD (coronary artery disease) (Chronic) Allergies Penicillins Allergy (Verified 08/16/18 13:34) Unknown Home Medications: Ambulatory Orders Medication Instructions Recorded Aspirin [Aspirin, Baby] 81 mg PO DAILY@0800 10/04/16 Atorvastatin Calcium [Lipitor] 80 mg PO QHS 10/04/16 Carvedilol [Coreg (Beta Annie)] 3.125 mg PO BID 10/04/16 Nitroglycerin [Nitrolingual [place]] 0.4 mg SL PRN PRN 10/04/16 Sertraline HCl [Zoloft] 50 mg PO DAILY 08/16/18 Acetaminophen [Tylenol] 1,000 mg PO Q8 08/19/18 Calcium (Elemental) [Os-Yung 500] 500 mg PO DAILY@0800 08/19/18 Cholecalciferol (Vitamin D3) 1,000 unit PO DAILY 08/19/18 [Vitamin D3] Enoxaparin [Lovenox] 40 mg SC DAILY@1000 08/19/18 Oxycodone [Oxyir] 5 mg PO Q4H PRN PRN 3 Days #10 08/19/18 tablet Senna/Docusate Sodium [Senokot-S] 2 tablet PO BID 08/19/18 Surgical History: appendectomy, cataract, - - Left eye surgery, appendectomy. Psychiatric History: Depression Lives: Spouse/ Significant Other Smoking Status: Former smoker Tobacco Use: Non-smoker Alcohol: Heavy Drugs: None - *Family History Maternal History Items: Cancer - Mother of leukemia Paternal History Items: No pertinent history Review of Systems Constitutional: Denies: Chills, Fever, Weight Change HEENT: Denies: Head Aches, Sinus Congestion, Sinus Drainage Cardiovascular: Denies: Chest Pain, Palpitations Respiratory: Denies: Cough, Shortness of breath at rest, Sputum production Gastrointestinal: Denies: Abdominal Pain, Nausea, Vomiting Genitourinary: Denies: Dysuria Musculoskeletal: Denies: Joint Pain, Joint Tenderness Skin: Denies: Rash, Wounds Neurological: Denies: Numbness, Tingling, Focal weakness Psychiatric: Denies: Anxiety, Depression, Homicidal Ideations, Suicidal Ideations Hematologic/ Lymphatic: Denies: Easy Bruising, Easy Bleeding VTE Information - Inpt Only VTE Present on Admission: No VTE Mechan Device Prophylaxis: Knee High CHA Hose VTE Pharm Prophylaxis ordered?: Yes Patient Problems: Active and Suspected Problems Fall (Acute) Orthostatic hypotension (Acute) - Physical Exam General: Alert, Oriented x3, Cooperative HEENT: Atraumatic, PERRLA, EOMI, Normocephalic Neck: Supple, No JVD, Negative Carotid Bruits Lungs: Clear to auscultation, Normal air movement Cardiovascular: Regular rate, No murmurs Abdomen: Bowel Sounds Present, Soft, Non Tender Extremities: No edema, Capillary Refill Less than 3 Seconds Skin: No rashes, No breakdown Musculoskeletal: No Tenderness to Palpation of Joints or Extremities Neurological: Cranial nerves II-XII grossly intact Psych/Mental Status: Normal Affect, Appropriate Vital Signs Temp Pulse Resp BP Pulse Ox 97.4 F L 65 18 165/80 H 96 08/19/18 16:55 08/19/18 16:55 08/19/18 16:55 08/19/18 16:55 08/19/18 16:55 Oxygen Delivery Method Room Air Weight: 70.76 kg Body Mass Index (BMI) 22.4 Intake and Output for Last 24 Hours 08/17/18 08/18/18 08/19/18 23:59 23:59 23:59 Intake Total 240 / 240 Balance 240 / 240 Assessment/Plan All Active Problems Compression fracture of L2 (Acute) Fall (Acute) Orthostatic hypotension (Acute) Syncope (Acute) Chest pain (Resolved) 83 year old male with below past medical history hospitalized for fall, acute L2 compression fracture, admitted to TCU with debility, here for rehabilitation, strengthening, prior to disposition determination. * Debility - PT/OT. * Cognitive Impairment - ST. * Pain - Tylenol 1000MG Q8H, Oxycodone 5MG Q4H PRN moderate pain. * Bowel - Miralax 17GM daily, Senna/colace 2 tablets BID, Dulcolax 10MG PO daily PRN. * Pneumonia vaccination - Administer Prevnar 13 and/or Pneumovax 23 as necessary. * DVT prophylaxis - Lovenox 40MG SC daily. * Coronary Artery Disease - Coreg 3.125MG BID, Aspirin 81MG daily, NTG 0.4MG SL Q5M PRN chest pain. * Hyperlipidemia - Atorvastatin 80MG QHS. * Calcium deficiency - OsCal 500MG daily. * Vitamin D deficiency - D3 1000IU daily. * Skin irritation - Calmoseptine BID bilateral buttocks/coccyx. * Depression - Sertraline 50MG daily. 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 * Disposition - Consider Assisted Living or congregate living situation.
[2018-08-19] MEDS: Donepezil HCl 5 MG Tablet PO (21:45)
[2018-08-19] MEDS: Menthol/Lanolin/Calamine/Znox 113 GM Tube 1 APPLIC TOPICAL (21:47)
[2018-08-19] MEDS: oxyCODONE 5 MG Tablet PO (23:13)
[2018-08-20 06:13] LABS: Anion Gap 8 (5-15); BUN 13 mg/dL (7-18); BUN/Creat Ratio 23.3 RATIO (10-20); Calcium,Total 8.5 mg/dL (8.5-10.1); Chloride 100 mmol/L (98-107); Creatinine, Serum 0.56 mg/dL (0.70-1.30); EST Glomerular Filtration Rate 149 mL/min (>60); Est Glom Filt Rate - Afr Amer 180 mL/min (>60); Estimated Creatinine Clearance 56.02 ml/min; Glucose 94 mg/dL (74-106); Potassium 3.6 mmol/L (3.5-5.1); Sodium Level 134 mmol/L (136-145)
[2018-08-20 06:20] LABS: Absolute Lymphocyte Count 1.08 X10^3/ul (0.83-4.51); Absolute Neutrophil Count 4.2 X10^3/uL (2.0-7.7); Basophil# 0.01 X10^3/uL; Basophil% 0.1 % (0-1); Eosinophil# 0.24 X10^3/uL; Eosinophils% 3.5 % (0-5); Hemoglobin 12.2 g/dl (13.0-16.5); Lymphocyte # 1.08 X10^3/ul (4.0); Lymphocyte % 15.9 % (19-41); Mean Corp Hgb Conc 35.9 g/gl (32-36); Mean Corpuscular Hgb 33.2 pg (27.0-32.0); Mean Corpuscular Volume 92.6 fL (80-94); Mean Platelet Vol. 9.2 fl (6.2-12.0); Monocyte# 1.22 X10^3/uL; Monocyte% 17.9 % (0-10); Neutrophil # 4.24 X10^3/uL (2.7-7.7); Neutrophil % 62.5 % (47-70); Platelet Count 186 K/mm3 (150-450); RBC Distribution Width SD 39.6 fl (35.1-43.9); Red Blood Count 3.67 M/mm3 (4.6-6.2); White Blood Count 6.8 K/mm3 (4.4-11.0)
[2018-08-20] MEDS: Menthol/Lanolin/Calamine/Znox 113 GM Tube 1 APPLIC TOPICAL ×2 (06:20→19:51)
[2018-08-20] MEDS: Acetaminophen 500 MG Tablet 1000 MG PO ×3 (06:24→19:50)
[2018-08-20] MEDS: Sertraline 50 MG Tablet PO (06:25)
[2018-08-20 06:27] LABS: POSITIVE COUNT NO; POSITIVE DIFFERENTIAL NO; POSITIVE MORPHOLOGY NO
[2018-08-20] MEDS: Carvedilol 3.125 MG TABLET PO ×2 (06:28→17:29)
--- NOTE | 2018-08-20 06:59 | NURSING ---
Flushed pt saline lock with 10 ml normal saline flush patent no s/sx of infiltration.
--- NOTE | 2018-08-20 07:15 | NURSING ---
Saline lock removed catheter intact at this time. No concerns voice during this time.
[2018-08-20] MEDS: Calcium (Elemental) 500 MG Tablet PO (09:06)
[2018-08-20] MEDS: Enoxaparin 40 MG/0.4 ML Syringe SC (09:06)
[2018-08-20] MEDS: Aspirin 81 MG TAB.CHEW PO (09:08)
[2018-08-20 09:20] VITALS: PULSE 59; O2SAT 93
--- NOTE | 2018-08-20 09:23 | CASEMGMT ---
Insurance Clinical information faxed. Pending continued stay approval. Auth# will obtain when further stay is approved. Kaylin PIZARRO, FINANCE ADMINISTRATOR
--- NOTE | 2018-08-20 09:46 | NURSING ---
Per therapy report, pt c/o dizziness during therapy eval this AM. BP obtained and positive orthostatics. RN Jocelyn made aware. Pt in recliner in room at this time resting, states he is beginning to feel better at rest. Will continue to monitor.
[2018-08-20] MEDS: Tuberculin,Purif.prot.deriv. 50 TU/ML Vial 5 ML ID (10:22)
--- NOTE | 2018-08-20 11:21 | NURSING ---
during a bathroom transfer with therapy, pt had large yellow colored emesis x2 containing breakfast contents. Therapy and nursing assisted cleaning up pt and assisted to recliner. VS BP 163/79 T 97.4 P 63 R 16, unlabored SpO2 95% of RA. No further emesis noted at this time. Resting comfortably in chair, adina karen given. Gisselle MCCANN made aware. Will continue to closely monitor.
[2018-08-20 15:29] VITALS: BP 160/76; PULSE 76; RESP 16; TEMP 36.6; O2SAT 95
[2018-08-20] MEDS: Donepezil HCl 5 MG Tablet PO (19:50)
[2018-08-20] MEDS: Atorvastatin Calcium 80 MG Tablet PO (19:51)
[2018-08-20] MEDS: 0.9% Normal Saline 1,000 ML 999 ML IV (20:25)
[2018-08-20 21:56] VITALS: BP 127/57; BP 142/80; BP 146/75; PULSE 74; PULSE 77; PULSE 90
--- NOTE | 2018-08-20 22:08 | NURSING ---
Dr. Miguel notified of orthostatic vital signs after patient had 1000 cc of fluid. Laying 146/75 P 74 Sitting 142/80 P 77 Standing 127/57 P 90. No new orders given.
--- NOTE | 2018-08-20 22:14 | NURSING ---
Pt has a new saline lock in left forearm and a bruise to R hand d/t infiltration.. No c/o pain at this time.
[2018-08-21] MEDS: Sertraline 50 MG Tablet PO (04:59)
[2018-08-21] MEDS: Carvedilol 3.125 MG TABLET PO ×2 (05:00→17:06)
[2018-08-21] MEDS: Acetaminophen 500 MG Tablet 1000 MG PO ×3 (05:00→19:59)
[2018-08-21] MEDS: Menthol/Lanolin/Calamine/Znox 113 GM Tube 1 APPLIC TOPICAL ×2 (05:01→19:58)
--- NOTE | 2018-08-21 07:34 | NURSING ---
pt c/o pain in mouth assessed pt mouth and has a bump in the inner right side of the cheek. RN made aware.
[2018-08-21] MEDS: Calcium (Elemental) 500 MG Tablet PO (08:12)
[2018-08-21] MEDS: Aspirin 81 MG TAB.CHEW PO (08:12)
[2018-08-21] MEDS: 0.9% NaCl Peripheral Flush Adult/Peds IV (09:25)
[2018-08-21] MEDS: Enoxaparin 40 MG/0.4 ML Syringe SC (09:26)
[2018-08-21 09:30] VITALS: PULSE 76; RESP 18; O2SAT 95
--- NOTE | 2018-08-21 11:25 | PCM.PN.RX ---
<AntonioMarvin sanchez D - Last Filed: 08/21/18 11:25> Progress Note - Pharmacy Subjective: TCU Admission Objective: Allergies Penicillins Allergy (Verified 08/16/18 13:34) Unknown Current Medications Generic Name Dose Route Start Last Admin Trade Name Freq PRN Reason Stop Dose Admin Acetaminophen 1,000 mg 08/19/18 22:00 08/21/18 05:00 Tylenol PO 1,000 mg Q8 EZEQUIEL Administration Aspirin 81 mg 08/20/18 08:00 08/21/18 08:12 Aspirin, Baby PO 81 mg DAILY@0800 EZEQUIEL Administration Atorvastatin Calcium 80 mg 08/19/18 22:00 08/20/18 19:51 Lipitor PO 80 mg QHS [facility] Administration Bisacodyl 10 mg 08/19/18 20:37 Dulcolax PO DAILY PRN Constipation Calamine/Phenol 1 applic 08/19/18 22:00 08/21/18 05:01 Calmoseptine Ointment TOPICAL 1 applicatio 0600,2200 [facility] Administration Protocol Calcium Carbonate 500 mg 08/20/18 08:00 08/21/18 08:12 Os-Yung 500 PO 500 mg DAILY@0800 EZEQUIEL Administration Carvedilol 3.125 mg 08/20/18 06:00 08/21/18 05:00 Coreg PO 3.125 mg BID EZEQUIEL Administration Cholecalciferol 1,000 unit 08/20/18 06:00 08/21/18 04:59 Vitamin D PO 1,000 unit DAILY EZEQUIEL Administration Donepezil HCl 5 mg 08/19/18 22:00 08/20/18 19:50 Aricept PO 5 mg QHS [facility] Administration Emollient Ointment 1 applic 08/20/18 22:00 08/20/18 19:56 Eucerin Intensive Repair TOPICAL 1 applicatio HS [facility] Administration Protocol Enoxaparin Sodium 40 mg 08/20/18 10:00 08/21/18 09:26 Lovenox SC 40 mg DAILY@1000 [facility] Administration Nitroglycerin 0.4 mg 08/19/18 19:40 Nitrostat SUBLINGUAL Q5M PRN CARDIAC/CHEST PAIN Oxycodone HCl 5 mg 08/19/18 19:08 08/19/18 23:13 Oxyir PO 5 mg Q4H PRN PRN Administration Moderate Pain (pain scale 4-5) Polyethylene Glycol 17 gm 08/20/18 06:00 08/21/18 05:02 Miralax PO Not Given DAILY EZEQUIEL Senna/Docusate Sodium 2 tablet 08/20/18 06:00 08/21/18 04:59 Senokot-S, Gala-Colace PO Not Given BID EZEQUIEL Sertraline HCl 50 mg 08/20/18 06:00 08/21/18 04:59 Zoloft PO 50 mg DAILY EZEQUIEL Administration Sodium Chloride 5 - 30 ml 08/20/18 05:10 08/21/18 09:25 IV 10 ml UD PRN Administration SALINE FLUSH Tuberculin PPD 5 tu 08/27/18 10:00 Tubersol, Aplisol, Ppd ID 08/27/18 10:01 X1 ONE Problem List Fall (Acute) Orthostatic hypotension (Acute) Hyperlipidemia (Chronic) Depression (Chronic) Alzheimer's disease (Chronic) Vital Signs Temp Pulse Resp BP Pulse Ox 97.9 F 74 16 146/75 H 95 08/20/18 15:29 08/20/18 21:56 08/20/18 15:29 08/20/18 21:56 08/20/18 15:29 Oxygen Delivery Method Room Air Weight: 70.76 kg Body Mass Index (BMI) 22.4 Orthostatic Vital Signs Start: 08/20/18 18:13 Freq: X1 Status: Active Protocol: Activity Type Activity Date Activity User E-Sign Co-Sign Detail Recorded Client Recorded Date Recorded By Document 08/20/18 21:56 [facility] [id number] 08/20/18 22:02 [facility] 08/20/18 21:56 Orthostatic Vitals Standing -Blood Pressure (90/60-120/80) 127/57 H -Extremity Use Right Arm -Pulse Rate (60-100) 90 Sitting -Blood Pressure (90/60-120/80) 142/80 H -Extremity Use Right Arm -Pulse Rate (60-100) 77 Lying -Blood Pressure (90/60-120/80) 146/75 H -Extremity Use Right Arm -Pulse Rate (60-100) 74 Sodium 134 mmol/L (136-145) L 08/20/18 05:45 Potassium 3.6 mmol/L (3.5-5.1) 08/20/18 05:45 Chloride 100 mmol/L (98-107) 08/20/18 05:45 Carbon Dioxide 26.0 mmol/L (21.0-32.0) 08/20/18 05:45 Anion Gap 8 (5-15) 08/20/18 05:45 BUN 13 mg/dL (7-18) 08/20/18 05:45 Creatinine 0.56 mg/dL (0.70-1.30) L 08/20/18 05:45 Est GFR (MDRD) Af Amer 180 mL/min (>60) 08/20/18 05:45 Est GFR (MDRD) Non-Af 149 mL/min (>60) 08/20/18 05:45 BUN/Creatinine Ratio 23.3 RATIO (10-20) H 08/20/18 05:45 Glucose 94 mg/dL (74-106) 08/20/18 05:45 Assessment/Plan: 1) Pain APAP scheduled, oxycodone prn. Continue to monitor daily pain scores, prn medication use. 2) CAD ASA, atorvastatin, carvedilol, prn ntg. Continue to monitor BP/HR, lipids, for chest pain, prn medication use. 3) Alzheimer's Donepezil at HS. Continue to monitor clinically. 4) DVT PPx Enoxaparin daily. Continue to monitor s/s bleeding/clot. 5) Nutrition Ca, D. Continue to monitor clinically. 6) Derm Calmoseptine, emollient. Continue to monitor clinically. Psychotropic Medications: 7) Depression Sertraline daily. Continue to monitor s/s depression/anxiety. Unnecessary Medications: None Bowel Regimen: 8) Senna/s, PEG, prn bisacodyl. Continue to monitor prn medication use, for constipation/diarrhea. Date of Note:: 08/21/18 - Provider Comments Provider responsibility: Provider responsible to enter orders to implement recommendations <Srikanth Miguel Chi - Last Filed: 08/21/18 17:36> Progress Note - Pharmacy Subjective: [] Objective: Allergies Penicillins Allergy (Verified 08/16/18 13:34) Unknown Current Medications Generic Name Dose Route Start Last Admin Trade Name Freq PRN Reason Stop Dose Admin Acetaminophen 1,000 mg 08/19/18 22:00 08/21/18 13:51 Tylenol PO 1,000 mg Q8 EZEQUIEL Administration Aspirin 81 mg 08/20/18 08:00 08/21/18 08:12 Aspirin, Baby PO 81 mg DAILY@0800 E[facility] Administration Atorvastatin Calcium 80 mg 08/19/18 22:00 08/20/18 19:51 Lipitor PO 80 mg QHS [facility] Administration Bisacodyl 10 mg 08/19/18 20:37 Dulcolax PO DAILY PRN Constipation Calamine/Phenol 1 applic 08/19/18 22:00 08/21/18 05:01 Calmoseptine Ointment TOPICAL 1 applicatio 0600,2200 [facility] Administration Protocol Calcium Carbonate 500 mg 08/20/18 08:00 08/21/18 08:12 Os-Yung 500 PO 500 mg DAILY@0800 E[facility] Administration Carvedilol 3.125 mg 08/20/18 06:00 08/21/18 17:06 Coreg PO 3.125 mg BID [facility] Administration Cholecalciferol 1,000 unit 08/20/18 06:00 08/21/18 04:59 Vitamin D PO 1,000 unit DAILY [facility] Administration Donepezil HCl 5 mg 08/19/18 22:00 08/20/18 19:50 Aricept PO 5 mg QHS [facility] Administration Emollient Ointment 1 applic 08/20/18 22:00 08/20/18 19:56 Eucerin Intensive Repair TOPICAL 1 applicatio HS [facility] Administration Protocol Enoxaparin Sodium 40 mg 08/20/18 10:00 08/21/18 09:26 Lovenox SC 40 mg DAILY@1000 [facility] Administration Nitroglycerin 0.4 mg 08/19/18 19:40 Nitrostat SUBLINGUAL Q5M PRN CARDIAC/CHEST PAIN Oxycodone HCl 5 mg 08/19/18 19:08 08/19/18 23:13 Oxyir PO 5 mg Q4H PRN PRN Administration Moderate Pain (pain scale 4-5) Polyethylene Glycol 17 gm 08/20/18 06:00 08/21/18 05:02 Miralax PO Not Given DAILY [facility] Senna/Docusate Sodium 2 tablet 08/20/18 06:00 08/21/18 17:11 Senokot-S, Gala-Colace PO Not Given BID [facility] Sertraline HCl 50 mg 08/20/18 06:00 08/21/18 04:59 Zoloft PO 50 mg DAILY [facility] Administration Sodium Chloride 5 - 30 ml 08/20/18 05:10 08/21/18 09:25 IV 10 ml UD PRN Administration SALINE FLUSH Tuberculin PPD 5 tu 08/27/18 10:00 Tubersol, Aplisol, Ppd ID 08/27/18 10:01 X1 ONE Problem List Fall (Acute) Orthostatic hypotension (Acute) Hyperlipidemia (Chronic) Depression (Chronic) Alzheimer's disease (Chronic) Vital Signs Temp Pulse Resp BP Pulse Ox 98.7 F 66 16 134/62 H 95 08/21/18 15:06 08/21/18 15:06 08/21/18 15:06 08/21/18 15:06 08/21/18 15:06 Oxygen Delivery Method Room Air Weight: 70.76 kg Body Mass Index (BMI) 22.4 Orthostatic Vital Signs Start: 08/20/18 18:13 Freq: X1 Status: Active Protocol: Activity Type Activity Date Activity User E-Sign Co-Sign Detail Recorded Client Recorded Date Recorded By Document 08/20/18 21:56 [facility] [id number] 08/20/18 22:02 [facility] 08/20/18 21:56 Orthostatic Vitals Standing -Blood Pressure (90/60-120/80) 127/57 H -Extremity Use Right Arm -Pulse Rate (60-100) 90 Sitting -Blood Pressure (90/60-120/80) 142/80 H -Extremity Use Right Arm -Pulse Rate (60-100) 77 Lying -Blood Pressure (90/60-120/80) 146/75 H -Extremity Use Right Arm -Pulse Rate (60-100) 74 Sodium 134 mmol/L (136-145) L 08/20/18 05:45 Potassium 3.6 mmol/L (3.5-5.1) 08/20/18 05:45 Chloride 100 mmol/L (98-107) 08/20/18 05:45 Carbon Dioxide 26.0 mmol/L (21.0-32.0) 08/20/18 05:45 Anion Gap 8 (5-15) 08/20/18 05:45 BUN 13 mg/dL (7-18) 08/20/18 05:45 Creatinine 0.56 mg/dL (0.70-1.30) L 08/20/18 05:45 Est GFR (MDRD) Af Amer 180 mL/min (>60) 08/20/18 05:45 Est GFR (MDRD) Non-Af 149 mL/min (>60) 08/20/18 05:45 BUN/Creatinine Ratio 23.3 RATIO (10-20) H 08/20/18 05:45 Glucose 94 mg/dL (74-106) 08/20/18 05:45 Assessment/Plan: Psychotropic Medications: Unnecessary Medications: Bowel Regimen: - Provider Comments Provider responsibility: Provider responsible to enter orders to implement recommendations Provider Comments to Recommendations by Pharmacy: Agree
--- NOTE | 2018-08-21 11:57 | PHA.CONS_ITS ---
<AntonioMarvin sanchez D - Last Filed: 08/21/18 11:25> Progress Note - Pharmacy Subjective: TCU Admission Objective: Allergies Penicillins Allergy (Verified 08/16/18 13:34) Unknown Current Medications Generic Name Dose Route Start Last Admin Trade Name Freq PRN Reason Stop Dose Admin Acetaminophen 1,000 mg 08/19/18 22:00 08/21/18 05:00 Tylenol PO 1,000 mg Q8 EZEQUIEL Administration Aspirin 81 mg 08/20/18 08:00 08/21/18 08:12 Aspirin, Baby PO 81 mg DAILY@0800 EZEQUIEL Administration Atorvastatin Calcium 80 mg 08/19/18 22:00 08/20/18 19:51 Lipitor PO 80 mg QHS [facility] Administration Bisacodyl 10 mg 08/19/18 20:37 Dulcolax PO DAILY PRN Constipation Calamine/Phenol 1 applic 08/19/18 22:00 08/21/18 05:01 Calmoseptine Ointment TOPICAL 1 applicatio 0600,2200 [facility] Administration Protocol Calcium Carbonate 500 mg 08/20/18 08:00 08/21/18 08:12 Os-Yung 500 PO 500 mg DAILY@0800 EZEQUIEL Administration Carvedilol 3.125 mg 08/20/18 06:00 08/21/18 05:00 Coreg PO 3.125 mg BID EZEQUIEL Administration Cholecalciferol 1,000 unit 08/20/18 06:00 08/21/18 04:59 Vitamin D PO 1,000 unit DAILY EZEQUIEL Administration Donepezil HCl 5 mg 08/19/18 22:00 08/20/18 19:50 Aricept PO 5 mg QHS [facility] Administration Emollient Ointment 1 applic 08/20/18 22:00 08/20/18 19:56 Eucerin Intensive Repair TOPICAL 1 applicatio HS [facility] Administration Protocol Enoxaparin Sodium 40 mg 08/20/18 10:00 08/21/18 09:26 Lovenox SC 40 mg DAILY@1000 [facility] Administration Nitroglycerin 0.4 mg 08/19/18 19:40 Nitrostat SUBLINGUAL Q5M PRN CARDIAC/CHEST PAIN Oxycodone HCl 5 mg 08/19/18 19:08 08/19/18 23:13 Oxyir PO 5 mg Q4H PRN PRN Administration Moderate Pain (pain scale 4-5) Polyethylene Glycol 17 gm 08/20/18 06:00 08/21/18 05:02 Miralax PO Not Given DAILY EZEQUIEL Senna/Docusate Sodium 2 tablet 08/20/18 06:00 08/21/18 04:59 Senokot-S, Gala-Colace PO Not Given BID EZEQUIEL Sertraline HCl 50 mg 08/20/18 06:00 08/21/18 04:59 Zoloft PO 50 mg DAILY EZEQUIEL Administration Sodium Chloride 5 - 30 ml 08/20/18 05:10 08/21/18 09:25 IV 10 ml UD PRN Administration SALINE FLUSH Tuberculin PPD 5 tu 08/27/18 10:00 Tubersol, Aplisol, Ppd ID 08/27/18 10:01 X1 ONE Problem List Fall (Acute) Orthostatic hypotension (Acute) Hyperlipidemia (Chronic) Depression (Chronic) Alzheimer's disease (Chronic) Vital Signs Temp Pulse Resp BP Pulse Ox 97.9 F 74 16 146/75 H 95 08/20/18 15:29 08/20/18 21:56 08/20/18 15:29 08/20/18 21:56 08/20/18 15:29 Oxygen Delivery Method Room Air Weight: 70.76 kg Body Mass Index (BMI) 22.4 Orthostatic Vital Signs Start: 08/20/18 18:13 Freq: X1 Status: Active Protocol: Activity Type Activity Date Activity User E-Sign Co-Sign Detail Recorded Client Recorded Date Recorded By Document 08/20/18 21:56 [facility] [id number] 08/20/18 22:02 [facility] 08/20/18 21:56 Orthostatic Vitals Standing -Blood Pressure (90/60-120/80) 127/57 H -Extremity Use Right Arm -Pulse Rate (60-100) 90 Sitting -Blood Pressure (90/60-120/80) 142/80 H -Extremity Use Right Arm -Pulse Rate (60-100) 77 Lying -Blood Pressure (90/60-120/80) 146/75 H -Extremity Use Right Arm -Pulse Rate (60-100) 74 Sodium 134 mmol/L (136-145) L 08/20/18 05:45 Potassium 3.6 mmol/L (3.5-5.1) 08/20/18 05:45 Chloride 100 mmol/L (98-107) 08/20/18 05:45 Carbon Dioxide 26.0 mmol/L (21.0-32.0) 08/20/18 05:45 Anion Gap 8 (5-15) 08/20/18 05:45 BUN 13 mg/dL (7-18) 08/20/18 05:45 Creatinine 0.56 mg/dL (0.70-1.30) L 08/20/18 05:45 Est GFR (MDRD) Af Amer 180 mL/min (>60) 08/20/18 05:45 Est GFR (MDRD) Non-Af 149 mL/min (>60) 08/20/18 05:45 BUN/Creatinine Ratio 23.3 RATIO (10-20) H 08/20/18 05:45 Glucose 94 mg/dL (74-106) 08/20/18 05:45 Assessment/Plan: 1) Pain APAP scheduled, oxycodone prn. Continue to monitor daily pain scores, prn medication use. 2) CAD ASA, atorvastatin, carvedilol, prn ntg. Continue to monitor BP/HR, lipids, for chest pain, prn medication use. 3) Alzheimer's Donepezil at HS. Continue to monitor clinically. 4) DVT PPx Enoxaparin daily. Continue to monitor s/s bleeding/clot. 5) Nutrition Ca, D. Continue to monitor clinically. 6) Derm Calmoseptine, emollient. Continue to monitor clinically. Psychotropic Medications: 7) Depression Sertraline daily. Continue to monitor s/s depression/anxiety. Unnecessary Medications: None Bowel Regimen: 8) Senna/s, PEG, prn bisacodyl. Continue to monitor prn medication use, for constipation/diarrhea. Date of Note:: 08/21/18 - Provider Comments Provider responsibility: Provider responsible to enter orders to implement recommendations <Srikanth Miguel Chi - Last Filed: 08/21/18 17:36> Progress Note - Pharmacy Subjective: [] Objective: Allergies Penicillins Allergy (Verified 08/16/18 13:34) Unknown Current Medications Generic Name Dose Route Start Last Admin Trade Name Freq PRN Reason Stop Dose Admin Acetaminophen 1,000 mg 08/19/18 22:00 08/21/18 13:51 Tylenol PO 1,000 mg Q8 EZEQUIEL Administration Aspirin 81 mg 08/20/18 08:00 08/21/18 08:12 Aspirin, Baby PO 81 mg DAILY@0800 EZEQUIEL Administration Atorvastatin Calcium 80 mg 08/19/18 22:00 08/20/18 19:51 Lipitor PO 80 mg QHS [facility] Administration Bisacodyl 10 mg 08/19/18 20:37 Dulcolax PO DAILY PRN Constipation Calamine/Phenol 1 applic 08/19/18 22:00 08/21/18 05:01 Calmoseptine Ointment TOPICAL 1 applicatio 0600,2200 [facility] Administration Protocol Calcium Carbonate 500 mg 08/20/18 08:00 08/21/18 08:12 Os-Yung 500 PO 500 mg DAILY@0800 EZEQUIEL Administration Carvedilol 3.125 mg 08/20/18 06:00 08/21/18 17:06 Coreg PO 3.125 mg BID [facility] Administration Cholecalciferol 1,000 unit 08/20/18 06:00 08/21/18 04:59 Vitamin D PO 1,000 unit DAILY EZEQUIEL Administration Donepezil HCl 5 mg 08/19/18 22:00 08/20/18 19:50 Aricept PO 5 mg QHS [facility] Administration Emollient Ointment 1 applic 08/20/18 22:00 08/20/18 19:56 Eucerin Intensive Repair TOPICAL 1 applicatio HS [facility] Administration Protocol Enoxaparin Sodium 40 mg 08/20/18 10:00 08/21/18 09:26 Lovenox SC 40 mg DAILY@1000 [facility] Administration Nitroglycerin 0.4 mg 08/19/18 19:40 Nitrostat SUBLINGUAL Q5M PRN CARDIAC/CHEST PAIN Oxycodone HCl 5 mg 08/19/18 19:08 08/19/18 23:13 Oxyir PO 5 mg Q4H PRN PRN Administration Moderate Pain (pain scale 4-5) Polyethylene Glycol 17 gm 08/20/18 06:00 08/21/18 05:02 Miralax PO Not Given DAILY [facility] Senna/Docusate Sodium 2 tablet 08/20/18 06:00 08/21/18 17:11 Senokot-S, Gala-Colace PO Not Given BID [facility] Sertraline HCl 50 mg 08/20/18 06:00 08/21/18 04:59 Zoloft PO 50 mg DAILY [facility] Administration Sodium Chloride 5 - 30 ml 08/20/18 05:10 08/21/18 09:25 IV 10 ml UD PRN Administration SALINE FLUSH Tuberculin PPD 5 tu 08/27/18 10:00 Tubersol, Aplisol, Ppd ID 08/27/18 10:01 X1 ONE Problem List Fall (Acute) Orthostatic hypotension (Acute) Hyperlipidemia (Chronic) Depression (Chronic) Alzheimer's disease (Chronic) Vital Signs Temp Pulse Resp BP Pulse Ox 98.7 F 66 16 134/62 H 95 08/21/18 15:06 08/21/18 15:06 08/21/18 15:06 08/21/18 15:06 08/21/18 15:06 Oxygen Delivery Method Room Air Weight: 70.76 kg Body Mass Index (BMI) 22.4 Orthostatic Vital Signs Start: 08/20/18 18:13 Freq: X1 Status: Active Protocol: Activity Type Activity Date Activity User E-Sign Co-Sign Detail Recorded Client Recorded Date Recorded By Document 08/20/18 21:56 [facility] [id number] 08/20/18 22:02 [facility] 08/20/18 21:56 Orthostatic Vitals Standing -Blood Pressure (90/60-120/80) 127/57 H -Extremity Use Right Arm -Pulse Rate (60-100) 90 Sitting -Blood Pressure (90/60-120/80) 142/80 H -Extremity Use Right Arm -Pulse Rate (60-100) 77 Lying -Blood Pressure (90/60-120/80) 146/75 H -Extremity Use Right Arm -Pulse Rate (60-100) 74 Sodium 134 mmol/L (136-145) L 08/20/18 05:45 Potassium 3.6 mmol/L (3.5-5.1) 08/20/18 05:45 Chloride 100 mmol/L (98-107) 08/20/18 05:45 Carbon Dioxide 26.0 mmol/L (21.0-32.0) 08/20/18 05:45 Anion Gap 8 (5-15) 08/20/18 05:45 BUN 13 mg/dL (7-18) 08/20/18 05:45 Creatinine 0.56 mg/dL (0.70-1.30) L 08/20/18 05:45 Est GFR (MDRD) Af Amer 180 mL/min (>60) 08/20/18 05:45 Est GFR (MDRD) Non-Af 149 mL/min (>60) 08/20/18 05:45 BUN/Creatinine Ratio 23.3 RATIO (10-20) H 08/20/18 05:45 Glucose 94 mg/dL (74-106) 08/20/18 05:45 Assessment/Plan: Psychotropic Medications: Unnecessary Medications: Bowel Regimen: - Provider Comments Provider responsibility: Provider responsible to enter orders to implement recommendations Provider Comments to Recommendations by Pharmacy: Agree
[2018-08-21 15:06] VITALS: BP 134/62; PULSE 66; RESP 16; TEMP 37.1; O2SAT 95
[2018-08-21] MEDS: Atorvastatin Calcium 80 MG Tablet PO (19:59)
[2018-08-21] MEDS: Donepezil HCl 5 MG Tablet PO (20:00)
[2018-08-22] MEDS: oxyCODONE 5 MG Tablet PO ×3 (03:55→21:55)
[2018-08-22] MEDS: Carvedilol 3.125 MG TABLET PO ×2 (05:07→17:52)
[2018-08-22] MEDS: Menthol/Lanolin/Calamine/Znox 113 GM Tube 1 APPLIC TOPICAL ×2 (05:08→21:17)
[2018-08-22] MEDS: Sertraline 50 MG Tablet PO (05:08)
[2018-08-22] MEDS: Acetaminophen 500 MG Tablet 1000 MG PO ×3 (05:08→21:18)
[2018-08-22] MEDS: 0.9% NaCl Peripheral Flush Adult/Peds IV (05:12)
[2018-08-22] MEDS: Calcium (Elemental) 500 MG Tablet PO (07:53)
[2018-08-22] MEDS: Aspirin 81 MG TAB.CHEW PO (07:53)
[2018-08-22 10:00] VITALS: PULSE 66; RESP 18; O2SAT 96
--- NOTE | 2018-08-22 11:03 | NURSING ---
Pt is alert and oriented x4 and answers questions appropriately. Using call light when needing assistance. PA d/c'd.
[2018-08-22] MEDS: Enoxaparin 40 MG/0.4 ML Syringe SC (12:13)
--- NOTE | 2018-08-22 12:20 | CHAPLAIN ---
Type of Pastoral Visit _x__ Initial Visit ___ Follow-up Visit ___ On-call Visit ___ General Patient Visit ___ Spiritual Assessment ___ Family Conference ___ Bereavement ___ Rapid Response ___ Code Blue ___ Other (describe below) Pastoral Care Referral From _x__ Patient ___ Family ___ Nurse ___ Physician ___ Diabetes Solutions Specialist ___ Corporate Executive ___ Other (describe below) Sacrament/Intervention _x__ Active listening ___ Anointing ___ Adventist ___ Bereavement ___ Communion ___ Nancy exploration ___ ___ Life review _x__ Prayer ___ Reconciliation ___ Sacrament of Sick ___ Supportive presence ___ Wedding ___ Other (describe below) Pastoral Comments
[2018-08-22 15:05] VITALS: BP 176/84; PULSE 65; RESP 16; TEMP 36.5; O2SAT 96
[2018-08-22] MEDS: Atorvastatin Calcium 80 MG Tablet PO (21:17)
[2018-08-22] MEDS: Donepezil HCl 5 MG Tablet PO (21:18)
[2018-08-23] MEDS: Menthol/Lanolin/Calamine/Znox 113 GM Tube 1 APPLIC TOPICAL ×2 (04:38→19:54)
[2018-08-23] MEDS: Carvedilol 3.125 MG TABLET PO ×2 (04:39→17:19)
[2018-08-23] MEDS: Acetaminophen 500 MG Tablet 1000 MG PO ×3 (04:40→20:45)
[2018-08-23] MEDS: oxyCODONE 5 MG Tablet PO ×2 (04:41→15:31)
[2018-08-23] MEDS: Sertraline 50 MG Tablet PO (04:42)
[2018-08-23] MEDS: Calcium (Elemental) 500 MG Tablet PO (07:50)
[2018-08-23] MEDS: Aspirin 81 MG TAB.CHEW PO (07:50)
[2018-08-23] MEDS: Enoxaparin 40 MG/0.4 ML Syringe SC (10:21)
[2018-08-23] MEDS: 0.9% NaCl Peripheral Flush Adult/Peds IV (13:53)
[2018-08-23 15:34] VITALS: BP 159/77; PULSE 74; RESP 16; TEMP 36.6; O2SAT 94
[2018-08-23] MEDS: Donepezil HCl 5 MG Tablet PO (19:55)
[2018-08-23] MEDS: Atorvastatin Calcium 80 MG Tablet PO (19:55)
[2018-08-23 20:30] VITALS: PULSE 68; RESP 18; O2SAT 94
[2018-08-24] MEDS: oxyCODONE 5 MG Tablet PO (03:04)
[2018-08-24] MEDS: Sertraline 50 MG Tablet PO (05:11)
[2018-08-24] MEDS: Menthol/Lanolin/Calamine/Znox 113 GM Tube 1 APPLIC TOPICAL ×2 (05:11→21:01)
[2018-08-24] MEDS: Acetaminophen 500 MG Tablet 1000 MG PO ×3 (05:12→21:00)
[2018-08-24] MEDS: Carvedilol 3.125 MG TABLET PO ×2 (05:12→16:43)
[2018-08-24] MEDS: Calcium (Elemental) 500 MG Tablet PO (07:34)
[2018-08-24] MEDS: Aspirin 81 MG TAB.CHEW PO (07:34)
[2018-08-24] MEDS: Enoxaparin 40 MG/0.4 ML Syringe SC (10:23)
[2018-08-24 15:16] VITALS: BP 137/76; PULSE 67; RESP 16; TEMP 36.5; O2SAT 94
[2018-08-24] MEDS: Donepezil HCl 5 MG Tablet PO (19:43)
[2018-08-24] MEDS: Atorvastatin Calcium 80 MG Tablet PO (19:43)
[2018-08-24 20:00] VITALS: PULSE 70; RESP 18; O2SAT 95
[2018-08-25] MEDS: Menthol/Lanolin/Calamine/Znox 113 GM Tube 1 APPLIC TOPICAL ×2 (05:34→20:57)
[2018-08-25] MEDS: Sertraline 50 MG Tablet PO (05:36)
[2018-08-25] MEDS: Acetaminophen 500 MG Tablet 1000 MG PO ×2 (05:36→14:37)
[2018-08-25] MEDS: Carvedilol 3.125 MG TABLET PO ×2 (05:36→17:16)
[2018-08-25] MEDS: oxyCODONE 5 MG Tablet PO ×2 (06:41→20:56)
[2018-08-25] MEDS: Calcium (Elemental) 500 MG Tablet PO (09:51)
[2018-08-25] MEDS: Aspirin 81 MG TAB.CHEW PO (09:51)
[2018-08-25] MEDS: Enoxaparin 40 MG/0.4 ML Syringe SC (09:51)
--- NOTE | 2018-08-25 12:07 | CASEMGMT ---
Insurance Continued stay approved with next update due on 09/15/18. Auth#[id number] Kaylin PIZARRO, HYDRAULIC BARKER OPERATOR
--- NOTE | 2018-08-25 14:55 | CASEMGMT ---
Brief interview for mental status (BIMS) and resident mood interview (PHQ-9) completed on this day. BIMS score 15. PHQ-9 score 12/14
[2018-08-25 15:04] VITALS: BP 125/56; PULSE 64; RESP 16; TEMP 36.6
[2018-08-25] MEDS: Senna/Docusate Sodium 1 Tablet 2 TABLET PO (17:17)
[2018-08-25 20:25] VITALS: PULSE 68; RESP 18; O2SAT 95
[2018-08-25] MEDS: Donepezil HCl 5 MG Tablet PO (20:58)
[2018-08-25] MEDS: Atorvastatin Calcium 80 MG Tablet PO (20:58)
[2018-08-26] MEDS: Menthol/Lanolin/Calamine/Znox 113 GM Tube 1 APPLIC TOPICAL ×2 (04:09→20:39)
[2018-08-26] MEDS: Carvedilol 3.125 MG TABLET PO ×2 (04:09→16:37)
[2018-08-26] MEDS: Acetaminophen 500 MG Tablet 1000 MG PO ×3 (04:10→20:36)
[2018-08-26] MEDS: oxyCODONE 5 MG Tablet PO ×2 (04:10→08:30)
[2018-08-26] MEDS: Sertraline 50 MG Tablet PO (04:11)
[2018-08-26] MEDS: Calcium (Elemental) 500 MG Tablet PO (07:58)
[2018-08-26] MEDS: Aspirin 81 MG TAB.CHEW PO (07:58)
[2018-08-26 09:15] VITALS: PULSE 68; RESP 16
[2018-08-26] MEDS: Enoxaparin 40 MG/0.4 ML Syringe SC (10:11)
[2018-08-26 15:20] VITALS: BP 139/66; PULSE 65; RESP 18; TEMP 36.5; O2SAT 96
[2018-08-26] MEDS: Donepezil HCl 5 MG Tablet PO (20:37)
[2018-08-26] MEDS: Atorvastatin Calcium 80 MG Tablet PO (20:38)
[2018-08-27] MEDS: oxyCODONE 5 MG Tablet PO ×2 (00:49→19:43)
[2018-08-27] MEDS: Menthol/Lanolin/Calamine/Znox 113 GM Tube 1 APPLIC TOPICAL ×2 (04:26→19:43)
[2018-08-27] MEDS: Sertraline 50 MG Tablet PO (04:27)
[2018-08-27] MEDS: Carvedilol 3.125 MG TABLET PO ×2 (04:28→16:59)
[2018-08-27] MEDS: Acetaminophen 500 MG Tablet 1000 MG PO ×3 (04:29→20:40)
[2018-08-27 05:06] LABS: Absolute Lymphocyte Count 1.54 X10^3/ul (0.83-4.51); Absolute Neutrophil Count 2.8 X10^3/uL (2.0-7.7); Basophil# 0.01 X10^3/uL; Basophil% 0.2 % (0-1); Eosinophil# 0.26 X10^3/uL; Eosinophils% 4.7 % (0-5); Hematocrit 37.5 % (40-54); Lymphocyte # 1.54 X10^3/ul (4.0); Lymphocyte % 27.8 % (19-41); Mean Corp Hgb Conc 34.7 g/gl (32-36); Mean Corpuscular Hgb 32.4 pg (27.0-32.0); Mean Corpuscular Volume 93.5 fL (80-94); Mean Platelet Vol. 8.5 fl (6.2-12.0); Monocyte% 16.2 % (0-10); Neutrophil # 2.81 X10^3/uL (2.7-7.7); Neutrophil % 50.7 % (47-70); Platelet Count 314 K/mm3 (150-450); RBC Distribution Width CV 12.1 % (11.6-14.6); RBC Distribution Width SD 40.6 fl (35.1-43.9); Red Blood Count 4.01 M/mm3 (4.6-6.2); White Blood Count 5.5 K/mm3 (4.4-11.0)
[2018-08-27 05:17] LABS: Anion Gap 6 (5-15); BUN 12 mg/dL (7-18); BUN/Creat Ratio 17.9 RATIO (10-20); Calcium,Total 8.9 mg/dL (8.5-10.1); Chloride 97 mmol/L (98-107); Creatinine, Serum 0.67 mg/dL (0.70-1.30); EST Glomerular Filtration Rate 120 mL/min (>60); Est Glom Filt Rate - Afr Amer 145 mL/min (>60); Estimated Creatinine Clearance 51.46 ml/min; Glucose 94 mg/dL (74-106); Potassium 4.9 mmol/L (3.5-5.1); Sodium Level 133 mmol/L (136-145)
[2018-08-27 05:22] LABS: POSITIVE COUNT NO; POSITIVE DIFFERENTIAL NO; POSITIVE MORPHOLOGY NO
[2018-08-27] MEDS: Calcium (Elemental) 500 MG Tablet PO (07:47)
[2018-08-27] MEDS: Aspirin 81 MG TAB.CHEW PO (07:47)
[2018-08-27] MEDS: Enoxaparin 40 MG/0.4 ML Syringe SC (10:03)
[2018-08-27] MEDS: Tuberculin,Purif.prot.deriv. 50 TU/ML Vial 5 ML ID (10:05)
--- NOTE | 2018-08-27 13:46 | CASEMGMT ---
Plan of care meeting held. Resident present as well as resident family. No discharge date set at this time. Resident to continue with further care and treatment on the Transitional Care Unit at this time. Resident daughter with concerns of resident discharging to home with spouse are resident spouse has Dementia and resident now has a new diagnosis of Dementia. At this time there are no documents, that the team is aware of that state that resident is unable to make own decisions at this point. This director of social services exploring option of aides in the home as well as assisted living. Resident daughter reporting that resident can become angry and upset with resident daughter when discussing assisted living. Resident did not respond much in regards to assisted living or help within the home. Resident with insurance update due on 09/15/18. This director of social services encouraging resident and resident family to continue discussing assisted living options and aides within the home as resident may not be able to take care of resident spouse without assistance. Resident and resident family voicing understanding and planning to discuss more. This director of social services encouraging resident and resident family to get in contact with this director of social services with any further questions. Support given. Will continue to follow. Kaylin PIZARRO, CIGARETTE VENDOR
[2018-08-27 15:32] VITALS: BP 126/58; PULSE 64; RESP 18; TEMP 36.6; O2SAT 96
[2018-08-27 15:51] VITALS: PULSE 63; RESP 18; O2SAT 96
[2018-08-27] MEDS: Donepezil HCl 5 MG Tablet PO (19:45)
[2018-08-27] MEDS: Atorvastatin Calcium 80 MG Tablet PO (19:46)
[2018-08-28] MEDS: Menthol/Lanolin/Calamine/Znox 113 GM Tube 1 APPLIC TOPICAL ×2 (04:52→19:53)
[2018-08-28] MEDS: Carvedilol 3.125 MG TABLET PO ×2 (04:54→16:49)
[2018-08-28] MEDS: Sertraline 50 MG Tablet PO (04:56)
[2018-08-28] MEDS: Acetaminophen 500 MG Tablet 1000 MG PO ×3 (04:56→19:54)
[2018-08-28] MEDS: Calcium (Elemental) 500 MG Tablet PO (08:20)
[2018-08-28] MEDS: Aspirin 81 MG TAB.CHEW PO (08:20)
[2018-08-28 10:00] VITALS: PULSE 68; RESP 16; O2SAT 94
[2018-08-28 15:42] VITALS: BP 120/56; PULSE 63; RESP 18; TEMP 36.3; O2SAT 96
[2018-08-28] MEDS: Donepezil HCl 5 MG Tablet PO (19:53)
[2018-08-28] MEDS: Atorvastatin Calcium 80 MG Tablet PO (19:53)
[2018-08-28] MEDS: oxyCODONE 5 MG Tablet PO (22:52)
[2018-08-29] MEDS: Carvedilol 3.125 MG TABLET PO ×2 (06:01→17:51)
[2018-08-29] MEDS: Acetaminophen 500 MG Tablet 1000 MG PO ×3 (06:01→20:20)
[2018-08-29] MEDS: Sertraline 50 MG Tablet PO (06:01)
[2018-08-29] MEDS: Menthol/Lanolin/Calamine/Znox 113 GM Tube 1 APPLIC TOPICAL ×2 (06:04→20:19)
[2018-08-29] MEDS: Aspirin 81 MG TAB.CHEW PO (07:55)
[2018-08-29] MEDS: Calcium (Elemental) 500 MG Tablet PO (07:55)
[2018-08-29 15:15] VITALS: BP 116/69; PULSE 65; RESP 18; TEMP 36.8; O2SAT 97
[2018-08-29 20:18] VITALS: PULSE 66; RESP 18; O2SAT 95
[2018-08-29] MEDS: oxyCODONE 5 MG Tablet PO (20:19)
[2018-08-29] MEDS: Atorvastatin Calcium 80 MG Tablet PO (20:19)
[2018-08-29] MEDS: Donepezil HCl 5 MG Tablet PO (20:20)
[2018-08-30] MEDS: oxyCODONE 5 MG Tablet PO ×2 (01:16→05:34)
[2018-08-30] MEDS: Menthol/Lanolin/Calamine/Znox 113 GM Tube 1 APPLIC TOPICAL ×2 (05:31→22:05)
[2018-08-30] MEDS: Carvedilol 3.125 MG TABLET PO ×2 (05:32→17:07)
[2018-08-30] MEDS: Senna/Docusate Sodium 1 Tablet 2 TABLET PO ×2 (05:32→17:07)
[2018-08-30] MEDS: Acetaminophen 500 MG Tablet 1000 MG PO ×3 (05:33→22:06)
[2018-08-30] MEDS: Sertraline 50 MG Tablet PO (05:34)
[2018-08-30] MEDS: Calcium (Elemental) 500 MG Tablet PO (07:46)
[2018-08-30] MEDS: Aspirin 81 MG TAB.CHEW PO (07:47)
[2018-08-30 10:00] VITALS: PULSE 67; RESP 18; O2SAT 99
[2018-08-30 15:26] VITALS: BP 122/64; PULSE 72; RESP 18; TEMP 36.1; O2SAT 94
[2018-08-30] MEDS: Donepezil HCl 5 MG Tablet PO (22:04)
[2018-08-30] MEDS: Atorvastatin Calcium 80 MG Tablet PO (22:06)
[2018-08-31] MEDS: Sertraline 50 MG Tablet PO (06:26)
[2018-08-31] MEDS: Carvedilol 3.125 MG TABLET PO ×2 (06:26→17:06)
[2018-08-31] MEDS: Acetaminophen 500 MG Tablet 1000 MG PO ×3 (06:27→22:12)
[2018-08-31] MEDS: Senna/Docusate Sodium 1 Tablet 2 TABLET PO ×2 (06:27→17:06)
[2018-08-31] MEDS: Menthol/Lanolin/Calamine/Znox 113 GM Tube 1 APPLIC TOPICAL ×2 (06:29→22:10)
[2018-08-31] MEDS: Aspirin 81 MG TAB.CHEW PO (07:47)
[2018-08-31] MEDS: Calcium (Elemental) 500 MG Tablet PO (07:47)
[2018-08-31 16:00] VITALS: BP 110/68; PULSE 70; RESP 16; TEMP 37.2; O2SAT 95
[2018-08-31 22:00] VITALS: PULSE 63; RESP 16; O2SAT 98
[2018-08-31] MEDS: Atorvastatin Calcium 80 MG Tablet PO (22:13)
[2018-08-31] MEDS: Donepezil HCl 5 MG Tablet PO (22:13)
[2018-09-01] MEDS: oxyCODONE 5 MG Tablet PO (05:33)
[2018-09-01] MEDS: Carvedilol 3.125 MG TABLET PO ×2 (05:34→17:01)
[2018-09-01] MEDS: Senna/Docusate Sodium 1 Tablet 2 TABLET PO (05:35)
[2018-09-01] MEDS: Menthol/Lanolin/Calamine/Znox 113 GM Tube 1 APPLIC TOPICAL ×2 (05:36→21:29)
[2018-09-01] MEDS: Sertraline 50 MG Tablet PO (05:36)
[2018-09-01] MEDS: Acetaminophen 500 MG Tablet 1000 MG PO ×3 (06:30→21:27)
[2018-09-01] MEDS: Calcium (Elemental) 500 MG Tablet PO (08:19)
[2018-09-01] MEDS: Aspirin 81 MG TAB.CHEW PO (08:19)
--- NOTE | 2018-09-01 15:05 | MDS.RN ---
Information for the mds was obtained from review of the clinical record, interview of resident, staff, and direct observation of resident's care.
[2018-09-01 15:21] VITALS: BP 120/66; PULSE 70; RESP 16; TEMP 36.4; O2SAT 94
[2018-09-01] MEDS: Atorvastatin Calcium 80 MG Tablet PO (21:28)
[2018-09-01] MEDS: Donepezil HCl 5 MG Tablet PO (21:28)
[2018-09-01 23:29] VITALS: PULSE 66; RESP 16; O2SAT 94
[2018-09-02] MEDS: Menthol/Lanolin/Calamine/Znox 113 GM Tube 1 APPLIC TOPICAL ×2 (05:19→20:45)
[2018-09-02] MEDS: Carvedilol 3.125 MG TABLET PO ×2 (05:20→17:15)
[2018-09-02] MEDS: Acetaminophen 500 MG Tablet 1000 MG PO ×3 (05:21→20:45)
[2018-09-02] MEDS: Senna/Docusate Sodium 1 Tablet 2 TABLET PO (05:21)
[2018-09-02] MEDS: Sertraline 50 MG Tablet PO (05:22)
[2018-09-02] MEDS: Aspirin 81 MG TAB.CHEW PO (08:38)
[2018-09-02] MEDS: Calcium (Elemental) 500 MG Tablet PO (08:38)
[2018-09-02] MEDS: oxyCODONE 5 MG Tablet PO (08:40)
--- NOTE | 2018-09-02 10:58 | CASEMGMT ---
Brief interview for mental status (BIMS) and resident mood interview (PHQ-9) completed on this day. BIMS score 15/15. PHQ-9 score
--- NOTE | 2018-09-02 13:11 | NURSING ---
THIS NURSE FOUND PT UP WALKING AROUND IN ROOM. EXPLAINED TO PT WHY WE WANT HIM TO USE THE CALL LIGHT. PT UNDER STOOD. REPORTED TO SIOBHAN MANJARREZ
--- NOTE | 2018-09-02 15:08 | CASEMGMT ---
Social Work Spoke with resident and resident daughter. This social media marketing manager communicating that discharge date has been set for 09/09/18. Resident and resident daughter are agreeable to discharge date. This socia worker communicating that physical therapy is recommending for resident to have continued services through home health care at time of discharge. Resident is agreeable to recommendation and requesting for home health care to be set up through [facility] ([facility]). Resident reporting to have needed durable medical equipment already set up within the home. Resident daughter plans to provide transportation home for resident at time of discharge. Resident daughter also planning to take FMLA to assist further with resident transitioning to home. Support given[facility] This social media marketing manager making referral for physical therapy. Order to be completed. Proposed discharge date: 09/09/18 PLAN: Discharge to home with spouse and home health services. Kaylin PIZARRO, DIXONAC OPERATOR
[2018-09-02 15:22] VITALS: BP 122/54; PULSE 61; RESP 16; TEMP 36.5; O2SAT 96
--- NOTE | 2018-09-02 15:22 | CHAPLAIN ---
Type of Pastoral Visit ___ Initial Visit _x__ Follow-up Visit ___ On-call Visit ___ General Patient Visit ___ Spiritual Assessment ___ Family Conference ___ Bereavement ___ Rapid Response ___ Code Blue ___ Other (describe below) Pastoral Care Referral From _x__ Patient ___ Family ___ Nurse ___ Physician ___ Director Of Neurology ___ Tip Cutter ___ Other (describe below) Sacrament/Intervention _x__ Active listening ___ Anointing ___ Catholic ___ Bereavement ___ Communion ___ Nancy exploration ___ ___ Life review _x__ Prayer ___ Reconciliation ___ Sacrament of Sick _x__ Supportive presence ___ Wedding ___ Other (describe below) Pastoral Comments
[2018-09-02 15:40] VITALS: PULSE 71; RESP 18; O2SAT 99
--- NOTE | 2018-09-02 20:41 | PCM.DC ---
- Discharge Diagnoses Current Active Problems: Current Active and Chronic Problems Fall (Acute) Orthostatic hypotension (Acute) Hyperlipidemia (Chronic) Depression (Chronic) Alzheimer's disease (Chronic) You will use the following diet at home:: No restrictions, Regular Your food should be the consistency of: Regular Your liquids should be the consistency of: Regular/Thin Discharge Activity: Return to Normal Activity, May Shower, Use Walker Weight Bearing Status: Weight bearing as tolerated Call your doctor if you observe: Fever of 101 or Higher, Inability to urinate, Inability to have a bowel movement, Shortness of breath, Chest pain, Uncontrolled pain Allergies/Adverse Reactions: Allergies Penicillins Allergy (Verified 08/16/18 13:34) Unknown Medications to take at Discharge Aspirin [Aspirin, Baby] 81 mg PO DAILY@0800 10/04/16 Atorvastatin Calcium [Lipitor] 80 mg PO QHS 10/04/16 Carvedilol [Coreg (Beta Annie)] 3.125 mg PO BID 10/04/16 Nitroglycerin [Nitrolingual [place]] 0.4 mg SL PRN PRN 10/04/16 Sertraline HCl [Zoloft] 50 mg PO DAILY 08/16/18 Acetaminophen [Tylenol] 1,000 mg PO Q8 08/19/18 Calcium (Elemental) [Os-Yung 500] 500 mg PO DAILY@0800 08/19/18 Cholecalciferol (Vitamin D3) [Vitamin D3] 1,000 unit PO DAILY 08/19/18 Donepezil HCl [Aricept] 5 mg PO QHS #30 tab 09/02/18 Menthol/Lanolin/Calamine/Znox [Calmoseptine Ointment] 1 applic TOPICAL 0600,2200 tube 09/02/18 The following prescriptions were given: Donepezil HCl [Aricept] 5 mg PO QHS #30 tab Primary Care Physician: Srikanth Miguel Chi, MD [COURTESY STAFF PHYSICIAN] - Please follow up with your Primary Care Physician in: 1 week. Test Results: Test results from this visit will be discussed in further detail at your follow-up appointment, if applicable. Proposed Discharge Date: 09/09/18
--- NOTE | 2018-09-02 20:43 | PCM.DC.SUM ---
Discharge Date and Diagnosis - Problem List Patient Problems: Active and Suspected Problems Fall (Acute) Orthostatic hypotension (Acute) Date of Admission: 08/19/18 Date of Discharge: 09/09/18 - Primary Discharge Diagnosis Active and Suspected Problems Fall (Acute) Orthostatic hypotension (Acute) - Secondary Discharge Diagnosis Chronic Problems Hyperlipidemia (Chronic) Depression (Chronic) Alzheimer's disease (Chronic) Hyponatremia (Chronic) Normochromic normocytic anemia (Chronic) Anxiety (Chronic) Alcohol abuse (Chronic) CAD (coronary artery disease) (Chronic) Hospital Course and Treatment Imaging Results: 08/19/18 17:47 Diet: Regular Diet Operations: None Procedures: None Summary of Care Provided: The patient is a 83 year old Male with below past medical history hospitalized for fall, acute L2 compression fracture, admitted to TCU with debility, here for rehabilitation, strengthening, prior to disposition determination. Discharge home with spouse, and Home Health Services. Patient Problems: Active and Suspected Problems Fall (Acute) Orthostatic hypotension (Acute) - Physical Exam Vital Signs Temp Pulse Resp BP Pulse Ox 97.7 F L 71 18 122/54 H 99 09/02/18 15:22 09/02/18 15:40 09/02/18 15:40 09/02/18 15:22 09/02/18 15:40 Oxygen Delivery Method Room Air Weight: 62.369 kg Body Mass Index (BMI) 22.4 Intake and Output for Last 24 Hours 08/31/18 09/01/18 09/02/18 23:59 23:59 23:59 Intake Total 1240 / 1240 480 / 480 720 / 720 Output Total 925 / 925 200 / 200 Balance 315 / 315 280 / 280 720 / 720 Discharge Diet: No Restrictions Discharge Activity: Return to Normal Activity, May Shower, Use Walker Weight Bearing Status: Weight bearing as tolerated Call your doctor if you observe: Fever of 101 or Higher, Inability to urinate, Inability to have a bowel movement, Shortness of breath, Chest pain, Uncontrolled pain Home Medications: Medications to take at Discharge Aspirin [Aspirin, Baby] 81 mg PO DAILY@0800 10/04/16 Atorvastatin Calcium [Lipitor] 80 mg PO QHS 10/04/16 Carvedilol [Coreg (Beta Annie)] 3.125 mg PO BID 10/04/16 Nitroglycerin [Nitrolingual [place]] 0.4 mg SL PRN PRN 10/04/16 Sertraline HCl [Zoloft] 50 mg PO DAILY 08/16/18 Acetaminophen [Tylenol] 1,000 mg PO Q8 08/19/18 Calcium (Elemental) [Os-Yung 500] 500 mg PO DAILY@0800 08/19/18 Cholecalciferol (Vitamin D3) [Vitamin D3] 1,000 unit PO DAILY 08/19/18 Donepezil HCl [Aricept] 5 mg PO QHS #30 tab 09/02/18 Menthol/Lanolin/Calamine/Znox [Calmoseptine Ointment] 1 applic TOPICAL 0600,2200 tube 09/02/18 Following Prescrptions Were Given to Patient: Donepezil HCl [Aricept] 5 mg PO QHS #30 tab Primary Care Physician: Srikanth Miguel Chi, MD [COURTESY STAFF PHYSICIAN] - Please follow up with your Primary Care Physician in: 1 week. Disposition: Home with Home Health Minutes spent on discharge:: 35 Patient Condition:: Stable Medical Necessity - Tobacco Use Smoking Status: Former smoker Tobacco Use: Non-smoker Meaningful Use Info Meaningful Use Diagnoses (Choose all that apply): None applicable
--- NOTE | 2018-09-02 20:45 | PCM.PN.HH ---
Home Health Note - Plan Overview of reason of hospitalization: The patient is a 83 year old Male with below past medical history hospitalized for fall, acute L2 compression fracture, admitted to TCU with debility, here for rehabilitation, strengthening, prior to disposition determination. Discharge home with spouse, and Home Health Services. Problems: Patient was seen for Fall (Acute) Orthostatic hypotension (Acute) Hyperlipidemia (Chronic) Depression (Chronic) Alzheimer's disease (Chronic) Complete List of Medical Problems Compression fracture of L2 (Acute) Fall (Acute) Orthostatic hypotension (Acute) Hyperlipidemia (Chronic) Depression (Chronic) Alzheimer's disease (Chronic) Hyponatremia (Chronic) Normochromic normocytic anemia (Chronic) Anxiety (Chronic) Syncope (Acute) Alcohol abuse (Chronic) CAD (coronary artery disease) (Chronic) - Requirements and Reasons Disciplines Needed/Ordered: Physical Therapy Reason for Disciplines: Gait Training, Stair Training, Fall Prevention, Home Safety/Equipment Instruction, Balance and/or Posture Training, Transfer Training Related To: Limited/Poor Endurance, Physical Impairments, Unsteady Gait/Balance, Fall Risk Patient is unable to leave the home: Without Aid of Supportive Devices (crutches, cane, wheelchair, walker), Without the assistance of another person
[2018-09-02] MEDS: Atorvastatin Calcium 80 MG Tablet PO (20:46)
[2018-09-02] MEDS: Donepezil HCl 5 MG Tablet PO (20:49)
[2018-09-03] MEDS: oxyCODONE 5 MG Tablet PO ×3 (01:40→23:34)
[2018-09-03 05:55] LABS: Absolute Lymphocyte Count 1.36 X10^3/ul (0.83-4.51); Absolute Neutrophil Count 4.1 X10^3/uL (2.0-7.7); Basophil# 0.03 X10^3/uL; Basophil% 0.5 % (0-1); Eosinophil# 0.25 X10^3/uL; Eosinophils% 3.8 % (0-5); Hematocrit 37.2 % (40-54); Hemoglobin 12.9 g/dl (13.0-16.5); Lymphocyte # 1.36 X10^3/ul (4.0); Lymphocyte % 20.4 % (19-41); Mean Corp Hgb Conc 34.7 g/gl (32-36); Mean Corpuscular Hgb 32.3 pg (27.0-32.0); Mean Platelet Vol. 9.1 fl (6.2-12.0); Monocyte# 0.88 X10^3/uL; Monocyte% 13.2 % (0-10); Neutrophil # 4.13 X10^3/uL (2.7-7.7); Neutrophil % 61.9 % (47-70); Platelet Count 325 K/mm3 (150-450); RBC Distribution Width CV 11.8 % (11.6-14.6); RBC Distribution Width SD 39.6 fl (35.1-43.9); White Blood Count 6.7 K/mm3 (4.4-11.0)
[2018-09-03 05:57] LABS: Anion Gap 8 (5-15); BUN 13 mg/dL (7-18); BUN/Creat Ratio 19.8 RATIO (10-20); Calcium,Total 8.7 mg/dL (8.5-10.1); Chloride 96 mmol/L (98-107); Creatinine, Serum 0.66 mg/dL (0.70-1.30); EST Glomerular Filtration Rate 123 mL/min (>60); Est Glom Filt Rate - Afr Amer 149 mL/min (>60); Estimated Creatinine Clearance 49.38 ml/min; Glucose 95 mg/dL (74-106); Potassium 4.2 mmol/L (3.5-5.1); Sodium Level 132 mmol/L (136-145)
[2018-09-03] MEDS: Carvedilol 3.125 MG TABLET PO ×2 (05:59→17:05)
[2018-09-03] MEDS: Acetaminophen 500 MG Tablet 1000 MG PO ×3 (05:59→19:43)
[2018-09-03] MEDS: Sertraline 50 MG Tablet PO (05:59)
[2018-09-03] MEDS: Menthol/Lanolin/Calamine/Znox 113 GM Tube 1 APPLIC TOPICAL ×2 (06:02→19:41)
[2018-09-03 06:16] LABS: POSITIVE COUNT NO; POSITIVE DIFFERENTIAL NO; POSITIVE MORPHOLOGY NO
[2018-09-03] MEDS: Calcium (Elemental) 500 MG Tablet PO (08:53)
[2018-09-03] MEDS: Aspirin 81 MG TAB.CHEW PO (08:53)
[2018-09-03 09:43] VITALS: PULSE 64; RESP 18; O2SAT 96
[2018-09-03 15:29] VITALS: BP 143/63; PULSE 70; RESP 18; TEMP 36.4; O2SAT 98
[2018-09-03] MEDS: Atorvastatin Calcium 80 MG Tablet PO (19:40)
[2018-09-03] MEDS: Donepezil HCl 5 MG Tablet PO (19:41)
[2018-09-04] MEDS: Menthol/Lanolin/Calamine/Znox 113 GM Tube 1 APPLIC TOPICAL ×2 (05:25→20:57)
[2018-09-04] MEDS: Carvedilol 3.125 MG TABLET PO ×2 (05:26→17:16)
[2018-09-04] MEDS: oxyCODONE 5 MG Tablet PO (05:26)
[2018-09-04] MEDS: Sertraline 50 MG Tablet PO (05:26)
[2018-09-04] MEDS: Aspirin 81 MG TAB.CHEW PO (08:03)
[2018-09-04] MEDS: Calcium (Elemental) 500 MG Tablet PO (08:03)
--- NOTE | 2018-09-04 13:21 | CASEMGMT ---
Social Work Spoke with resident in room. Resident requesting to discharge on 09/06/18, resident daughter is unsure of this and reporting to want to speak further with resident on collaborating on the discharge date change. This rn social services voiced understanding and plan is for resident and resident daughter to discuss decision later today. Will continue to follow. Kaylin PIZARRO, GROCERY BAGGER
[2018-09-04 14:40] VITALS: PULSE 75; RESP 16; O2SAT 97
[2018-09-04 16:00] VITALS: BP 130/59; PULSE 70; RESP 18; TEMP 36.7; O2SAT 99
[2018-09-04] MEDS: Acetaminophen 500 MG Tablet 1000 MG PO (20:56)
[2018-09-04] MEDS: Atorvastatin Calcium 80 MG Tablet PO (20:57)
[2018-09-04] MEDS: Donepezil HCl 5 MG Tablet PO (20:57)
[2018-09-05] MEDS: oxyCODONE 5 MG Tablet PO ×2 (02:35→08:07)
[2018-09-05] MEDS: Acetaminophen 500 MG Tablet 1000 MG PO ×3 (05:48→21:15)
[2018-09-05] MEDS: Carvedilol 3.125 MG TABLET PO ×2 (05:49→16:54)
[2018-09-05] MEDS: Sertraline 50 MG Tablet PO (05:49)
[2018-09-05] MEDS: Menthol/Lanolin/Calamine/Znox 113 GM Tube 1 APPLIC TOPICAL ×2 (05:50→19:52)
[2018-09-05] MEDS: Calcium (Elemental) 500 MG Tablet PO (08:06)
[2018-09-05] MEDS: Aspirin 81 MG TAB.CHEW PO (08:06)
--- NOTE | 2018-09-05 10:58 | CASEMGMT ---
Social Work Spoke with resident and resident spouse, discharge date maintains the same of 09/09/18 as previously set by team. Resident plans to discharge to home with spouse and home health services. Resident also now expressing a need for a walker. Resident does not have a preference of [employer], [employer] to be utilized. Support given. Will continue to follow to set up walker. Proposed discharge date: 09/09/18 PLAN: Discharge to home with spouse and home health services. Kaylin PIZARRO, HOOP FLARING MACHINE OPERATOR
[2018-09-05 14:10] VITALS: PULSE 73; RESP 18; O2SAT 98
--- NOTE | 2018-09-05 14:47 | CASEMGMT ---
Social Work Order faxed to [facility] for front wheeled walker. [facility] to have walker delivered to resident room prior to resident discharge. Proposed discharge date: 09/09/18 PLAN: Discharge to home with spouse and home health services. Kaylin PIZARRO, RN DOCUMENTATION SPECIALIST
[2018-09-05 16:00] VITALS: BP 141/58; PULSE 72; RESP 16; TEMP 36.4; O2SAT 97
[2018-09-05] MEDS: Donepezil HCl 5 MG Tablet PO (19:54)
[2018-09-05] MEDS: Atorvastatin Calcium 80 MG Tablet PO (19:54)
[2018-09-06] MEDS: oxyCODONE 5 MG Tablet PO (01:24)
[2018-09-06] MEDS: Acetaminophen 500 MG Tablet 1000 MG PO ×3 (06:17→23:16)
[2018-09-06] MEDS: Sertraline 50 MG Tablet PO (06:18)
[2018-09-06] MEDS: Carvedilol 3.125 MG TABLET PO ×2 (06:18→18:44)
[2018-09-06] MEDS: Menthol/Lanolin/Calamine/Znox 113 GM Tube 1 APPLIC TOPICAL (06:19)
[2018-09-06] MEDS: Calcium (Elemental) 500 MG Tablet PO (09:30)
[2018-09-06] MEDS: Aspirin 81 MG TAB.CHEW PO (09:30)
[2018-09-06 09:31] VITALS: PULSE 60
[2018-09-06 14:55] VITALS: BP 128/65; PULSE 71; RESP 16; TEMP 36.3; O2SAT 96
[2018-09-06] MEDS: Atorvastatin Calcium 80 MG Tablet PO (18:44)
[2018-09-06] MEDS: Donepezil HCl 5 MG Tablet PO (18:45)
[2018-09-07] MEDS: Carvedilol 3.125 MG TABLET PO ×2 (05:22→19:02)
[2018-09-07] MEDS: Acetaminophen 500 MG Tablet 1000 MG PO ×3 (05:22→22:04)
[2018-09-07] MEDS: Sertraline 50 MG Tablet PO (05:22)
[2018-09-07] MEDS: Menthol/Lanolin/Calamine/Znox 113 GM Tube 1 APPLIC TOPICAL ×2 (05:29→22:07)
[2018-09-07 05:31] VITALS: PULSE 64; RESP 16; O2SAT 97
[2018-09-07] MEDS: Calcium (Elemental) 500 MG Tablet PO (08:53)
[2018-09-07] MEDS: Aspirin 81 MG TAB.CHEW PO (08:54)
[2018-09-07 10:00] VITALS: PULSE 75; O2SAT 96
[2018-09-07 15:27] VITALS: BP 122/48; PULSE 69; RESP 14; TEMP 36.2; O2SAT 97
[2018-09-07] MEDS: Donepezil HCl 5 MG Tablet PO (19:02)
[2018-09-07] MEDS: Atorvastatin Calcium 80 MG Tablet PO (19:02)
[2018-09-08] MEDS: oxyCODONE 5 MG Tablet PO (01:45)
[2018-09-08] MEDS: Carvedilol 3.125 MG TABLET PO ×2 (05:30→17:22)
[2018-09-08] MEDS: Acetaminophen 500 MG Tablet 1000 MG PO ×3 (05:30→22:07)
[2018-09-08] MEDS: Sertraline 50 MG Tablet PO (05:30)
[2018-09-08] MEDS: Senna/Docusate Sodium 1 Tablet 2 TABLET PO (05:33)
[2018-09-08] MEDS: Menthol/Lanolin/Calamine/Znox 113 GM Tube 1 APPLIC TOPICAL ×2 (05:33→19:42)
[2018-09-08] MEDS: Calcium (Elemental) 500 MG Tablet PO (08:21)
[2018-09-08] MEDS: Aspirin 81 MG TAB.CHEW PO (08:21)
[2018-09-08 10:00] VITALS: PULSE 75; RESP 18; O2SAT 97
[2018-09-08 15:43] VITALS: BP 130/52; PULSE 74; RESP 16; TEMP 36.7; O2SAT 95
[2018-09-08] MEDS: Atorvastatin Calcium 80 MG Tablet PO (19:46)
[2018-09-08] MEDS: Donepezil HCl 5 MG Tablet PO (19:47)
[2018-09-09] MEDS: oxyCODONE 5 MG Tablet PO (03:48)
[2018-09-09] MEDS: Menthol/Lanolin/Calamine/Znox 113 GM Tube 1 APPLIC TOPICAL (06:27)
[2018-09-09] MEDS: Carvedilol 3.125 MG TABLET PO (06:27)
[2018-09-09] MEDS: Acetaminophen 500 MG Tablet 1000 MG PO (06:28)
[2018-09-09] MEDS: Sertraline 50 MG Tablet PO (06:28)
[2018-09-09 06:30] VITALS: PULSE 60; RESP 16; O2SAT 98
[2018-09-09] MEDS: Aspirin 81 MG TAB.CHEW PO (07:46)
[2018-09-09] MEDS: Calcium (Elemental) 500 MG Tablet PO (07:46)
[2018-09-09 13:29] VITALS: BP 127/59; PULSE 67; RESP 14; TEMP 35.9; O2SAT 93
--- NOTE | 2018-09-10 14:07 | CASEMGMT ---
Insurance Notified insurance of resident discharge on 09/09/18 to home with spouse and home health services. Auth#[id number] Kaylin PIZARRO, SUPERVISOR FINISHING
--- NOTE | 2018-09-15 14:51 | MDS.RN ---
Information for the mds was obtained from review of the clinical record, interview of resident, staff, and direct observation of resident's care.
== END 2018-09-09 12:00 | disposition home health service (06) | DRG 561 ==
PROVIDERS: Admitting Provider Family Medicine Geriatric Medicine; Family Provider Internal Medicine; PCP Internal Medicine; Referring Provider Family Medicine Geriatric Medicine; Visit Provider Family Medicine Geriatric Medicine
DX: S32.029D Unspecified fracture of second lumbar vertebra, subsequent encounter for fracture with routine healing (principal); W19.XXXD Unspecified fall, subsequent encounter; G30.9 Alzheimer's disease, unspecified; F02.80 Dementia in other diseases classified elsewhere, unspecified severity, without behavioral disturbance, psychotic disturbance, mood disturbance, and anxiety; F32.9 Major depressive disorder, single episode, unspecified; E55.9 Vitamin D deficiency, unspecified; E78.5 Hyperlipidemia, unspecified; I25.10 Atherosclerotic heart disease of native coronary artery without angina pectoris; F41.9 Anxiety disorder, unspecified; Z87.891 Personal history of nicotine dependence; D64.9 Anemia, unspecified
CPT/HCPCS: 36415; 80048; 85025; 92507; 97110; 97116; 97162; 97166; 97530; 97535; 97802; J7030; A4216

== ENCOUNTER 2019-11-18 17:11 | Observation (INO) | payer MEDICARE, SELFPAY ==
[2019-11-18 17:11] VITALS: BP 178/79; PULSE 64; RESP 18; TEMP 36.5; O2SAT 100; BMI 21.1
[2019-11-18 17:16] VITALS: O2SAT 100
--- NOTE | 2019-11-18 17:37 | CT_ITS ---
STUDY: CT CERVICAL SPINE WITHOUT CONTRAST REASON FOR EXAM: Male, 84 years old. FALL AND HIT HEAD ON SIDEWALK,LACERATION TO FOREHEAD -- HX:HTN RADIATION DOSAGE (If Supplied By Facility): CTDIvol = ( 016.04 ) mGy, DLP = ( 323.54 ) mGycm TECHNIQUE: High resolution transaxial imaging was performed without contrast material. Sagittal and coronal images were reconstructed. Individualized dose optimization techniques were used for this CT. COMPARISON: None FINDINGS: Normal craniovertebral junction. Normal C1, C2 and odontoid alignment. Degenerative arthrosis of the lateral axial articulation. Negative for odontoid fracture. Normal cervical lordosis. Negative for acute fracture of the cervical spine. C2-3: Mild disc narrowing and uncovertebral arthrosis. Bilateral advanced facet arthrosis. Negative for central stenosis or substantial foraminal narrowing. C3-4: Disc narrowing and calcification. Uncovertebral arthrosis with fusion. Bilateral advanced facet arthrosis with effusion on the left. Negative for central stenosis. Mild bilateral foraminal narrowing. C4-5: Mild disc narrowing and uncovertebral arthrosis. Bilateral facet arthrosis. Negative for central stenosis. Mild bilateral foraminal narrowing. C5-6: Advanced disc narrowing. Uncovertebral arthrosis. Negative for central stenosis. Bilateral mild foraminal narrowing. C6-7: Advanced disc narrowing and uncovertebral arthrosis. Negative for central stenosis. Bilateral mild foraminal narrowing. C7-T1: Mild disc narrowing. Facet arthrosis. Negative for central stenosis. Mild foraminal narrowing. Bilateral carotid artery calcifications. CT/Spine Cervical without Contras IMPRESSION: Normal alignment of the cervical spine without acute fracture deformity. Degenerative disc and joint changes as stated above. Bilateral carotid artery calcifications. Electronically Signed: Jessica Pa MD at 18:38 EST , Service support ,
--- NOTE | 2019-11-18 17:37 | CT_ITS ---
STUDY: CT BRAIN WITHOUT CONTRAST REASON FOR EXAM: Male, 84 years old. FALL AND HIT HEAD ON SIDEWALK. RADIATION DOSAGE (If Supplied By Facility): CTDIvol = ( 044.99 ) mGy, DLP = ( 829.85 ) mGycm TECHNIQUE: Transaxial CT imaging of the brain was performed without administration of intravenous contrast material. Individualized dose optimization techniques were used for this CT. COMPARISON: Prior head CT exam of August 16, 2018 FINDINGS: Hematoma and skin injury right anterior head. Normal calvarium. There is mild cerebral atrophy with widening of the extra-axial spaces and ventricular dilatation. There are areas of decreased attenuation within the white matter tracts of the supratentorial brain, consistent with microvascular disease changes. Normal basal ganglia and thalami. Normal brainstem. Normal cerebellum. There is no intracranial hemorrhage. There are no findings of an acute ischemic infarction. Circumferential mucosal thickening right frontal sinus. Mild areas of mucosal thickening inferior recess left frontal sinus. Multiple opacified ethmoid sinuses bilaterally, mostly on the right. Mild to moderate areas of mucosal thickening in the sphenoid sinuses Mucosal thickening bilateral maxillary sinuses status post nasal antral windows, partial right middle turbinectomy, bilateral uncinectomy and partial ethmoidectomy. Artificial left eye. CT/Brain/Head without Contrast IMPRESSION: No acute intracranial findings. Negative for hemorrhage, hematoma or extra-axial fluid collection. Mild stable involutional changes. Injury of the left anterior head with no underlying skull fracture or foreign body. Incidental sinus findings as stated above. Electronically Signed: Jessica Pa MD at 18:34 EST , Service support ,
--- NOTE | 2019-11-18 18:48 | ED.VISSUMM ---
- ER Visit Summary Date of Service: 11/18/19 Chief Complaint: Slip and fall History of Present Illness: The patient is a 84 M who slipped and fell prior to arrival. This was on the sidewalk. He hit his head and his left knee. No other injuries. No loss of consciousness. Tetanus is up-to-date. Physical Examination: Patient has abrasion to his forehead and left knee. Otherwise head is atraumatic and unremarkable. Neck is nontender. Heart regular. Lungs clear. Abdomen soft. Back is nontender. Extremities nontender with good range of motion. No deformities. Neurovascular intact. Good strength and sensation. Normal mental status. Test Results: CT brain and cervical spine showed primarily chronic changes. No acute fracture or bleeding. Emergency Department Course and Treatment: Imaging was unremarkable. No further imaging or laboratory testing is indicated. Wounds were dressed. Tetanus is already up-to-date. Follow-up with primary care. Return for any new or worsening issues. Prior to discharge, the patient's family arrived. They said that he has been dizzy. They said he did not slip. They said he has been dizzy. The patient agreed. They were amenable to work-up and admission for dizziness. CBC, BMP, urinalysis, troponin, EKG, and chest x-ray were added. Will contact the hospitalist pending results. Additional work-up was unremarkable. Hospitalist was contacted for observation in [facility]. Treatment Plan: As above Disposition: Admission Impression: 1. Forehead abrasion 2. Left knee abrasion 3. Dizziness This note was generated with [employer] dictation software. It may contain incorrect words, spelling, and punctuation that were not noted in review of the chart prior to signing ED Disposition - Plan for ED Patient: Instructions: FALL, Mechanical Referrals: Shasta Bneites MD [Primary Care Provider] -
--- NOTE | 2019-11-18 19:02 | ED.RN ---
pt was dizzy when fel. not mechanical. dr su per daughter dr adviced further tests and pt declined and requesting to go home.
--- NOTE | 2019-11-18 19:13 | ED.RN ---
DAUGHTER STATES DOES NOT FEEL COMFORTABLE TAKING HIM HOME DE TO THE DIZZYNESS.
[2019-11-18 19:16] VITALS: BP 168/75; PULSE 74; RESP 16; O2SAT 99
--- NOTE | 2019-11-18 19:16 | EKG12_ITS ---
Test Reason : FALL Blood Pressure : / mmHG Vent. Rate : 064 BPM Atrial Rate : 064 BPM P-R Int : 198 ms QRS Dur : 086 ms QT Int : 426 ms P-R-T Axes : 033 -02 038 degrees QTc Int : 439 ms Sinus rhythm with occasional Premature ventricular complexes Otherwise normal ECG Confirmed by ORESTES FELICIANO, GENARO ([id number]), associate editor RAVI LORENZO ([id number]) on 11/20/2019 2:15:42 PM Referred By: Cristobal Villagran Confirmed By:GENARO CARLISLE MD
--- NOTE | 2019-11-18 19:20 | RAD_ITS ---
STUDY: X-RAY CHEST REASON FOR EXAM: Male, 84 years old. dizzy, fall TECHNIQUE: 1 view COMPARISON: Prior chest radiograph of October 04, 2016 FINDINGS: The lungs are clear and expanded. There is no demonstrated pleural abnormality. Normal size heart. Normal mediastinum and alpesh. Normal visualized pulmonary arteries. There is atherosclerotic calcification of the aortic arch with tortuosity. Normal visualized thoracic spine. Normal visualized ribs, clavicles, and shoulders. There is no demonstrated abnormality of the visualized soft tissue structures of the upper abdomen. RAD/Chest 1 View (Portable) IMPRESSION: No acute cardiopulmonary findings or changes. Electronically Signed: Jessica Pa MD at 19:51 EST , Service support ,
[2019-11-18 19:33] LABS: Absolute Lymphocyte Count 1.17 X10^3/uL (0.83-4.51); Absolute Neutrophil Count 4.9 X10^3/uL (2.0-7.7); Basophil# 0.02 X10^3/uL; Basophil% 0.3 % (0-1); Eosinophil# 0.51 X10^3/uL; Eosinophils% 6.8 % (0-5); Hematocrit 40.3 % (40-54); Hemoglobin 13.7 g/dL (13.0-16.5); Lymphocyte # 1.17 X10^3/ul (4.0); Lymphocyte % 15.6 % (19-41); Mean Corpuscular Hgb 32.7 pg (27.0-32.0); Mean Corpuscular Volume 96.2 fL (80-94); Mean Platelet Vol. 9.4 fl (6.2-12.0); Monocyte# 0.85 X10^3/uL; Monocyte% 11.3 % (0-10); NRBC Flagged by Analyzer 0 % (0-5); Neutrophil # 4.91 X10^3/uL (2.7-7.7); Neutrophil % 65.6 % (47-70); Platelet Count 205 K/mm3 (150-450); RBC Distribution Width CV 12.4 % (11.6-14.6); RBC Distribution Width SD 43.8 fl (35.1-43.9); Red Blood Count 4.19 M/mm3 (4.6-6.2); White Blood Count 7.5 K/mm3 (4.4-11.0)
[2019-11-18 19:39] LABS: Bacteria 0 SEEN /hpf (None Seen); Mucous, Urine 0 SEEN /hpf (<or=2+); Red Blood Cells-Urine 0 SEEN /hpf (0-5); White Blood Cells 0 SEEN /hpf (0-5)
[2019-11-18 19:40] LABS: Color, Urine Yellow (Yellow); Glucose, Dipstick Normal (Normal); Ketone-Dipstick Negative (Negative); Leukocyte Esterase-Dipstick Negative /ul (Negative); Nitrite-Dipstick Negative (Negative); Occult Blood-Urine Negative /ul (Negative); Protein-Dipstick Negative (Negative); Urine Bilirubin Dipstick Negative (Negative); Urine Clarity Sl. Cloudy (Clear); Urine Urobilinogen Normal (Normal)
[2019-11-18 19:53] LABS: Anion Gap 4 (5-15); BUN 15 mg/dL (7-18); BUN/Creat Ratio 19.4 RATIO (10-20); Calcium,Total 9.2 mg/dL (8.5-10.1); Chloride 100 mmol/L (98-107); Creatinine, Serum 0.77 mg/dL (0.70-1.30); EST Glomerular Filtration Rate 102 mL/min (>60); Est Glom Filt Rate - Afr Amer 123 mL/min (>60); Estimated Creatinine Clearance 52.03 ml/min; Glucose 95 mg/dL (74-106); Potassium 4.3 mmol/L (3.5-5.1); Sodium Level 133 mmol/L (136-145)
[2019-11-18 20:10] LABS: Squamous Epithelial Cells - UA 0-5 SEEN /hpf (0-5)
--- NOTE | 2019-11-18 20:32 | PCM.HP.STD ---
Problem List (1) Fall Status: Acute (2) Compression fracture of L2 Status: Chronic (3) Hyperlipidemia Status: Chronic (4) Depression Status: Chronic (5) Alzheimer's disease Status: Chronic (6) Hyponatremia Status: Chronic (7) Normochromic normocytic anemia Status: Chronic (8) Anxiety Status: Chronic (9) Alcohol abuse Status: Chronic (10) CAD (coronary artery disease) Status: Chronic History of Present Illness Date of Admission: 11/18/19 Chief Complaint: fall The patient is a 84 year old M with a significant history of Alzheimer disease; depression and anxiety; upper lipidemia; CAD status post stent who presents emergency department with fall. Patient fell while walking on the sideways. He reported that he was walking very fast and he could not stop himself from walking fast. He fell injuring his forehead and his left knee. His tetanus is up-to-date. At the emergency department plan was for patient to discharge home however family felt that patient has difficulty with ambulation and should be evaluated further. Of note patient denies any Vertigo or lightheadedness. Past Medical History Past Medical History (Chronic Problems): Chronic Problems Compression fracture of L2 (Chronic) Hyperlipidemia (Chronic) Depression (Chronic) Alzheimer's disease (Chronic) Hyponatremia (Chronic) Normochromic normocytic anemia (Chronic) Anxiety (Chronic) Alcohol abuse (Chronic) CAD (coronary artery disease) (Chronic) Allergies Penicillins Allergy (Verified 08/16/18 13:34) Unknown Home Medications: Ambulatory Orders Medication Instructions Recorded Aspirin [Aspirin, Baby] 81 mg PO DAILY@0800 10/04/16 Atorvastatin Calcium [Lipitor] 80 mg PO QHS 10/04/16 Carvedilol [Coreg (Beta Annie)] 3.125 mg PO BID 10/04/16 Nitroglycerin [Nitrolingual [place]] 0.4 mg SL PRN PRN 10/04/16 Sertraline HCl [Zoloft] 75 mg PO DAILY 08/16/18 Acetaminophen [Tylenol] 1,000 mg PO Q8 08/19/18 Calcium (Elemental) [Os-Yung 500] 500 mg PO DAILY@0800 08/19/18 Cholecalciferol (Vitamin D3) 1,000 unit PO DAILY 08/19/18 [Vitamin D3] Donepezil HCl [Aricept] 10 mg PO QHS 11/18/19 Lorazepam [Ativan] 0.5 mg PO DAILY 11/18/19 Surgical History: appendectomy, cataract, - - Left eye surgery, appendectomy. Psychiatric History: Depression Lives: Alone - Used to live with recently but his has been admitted at the senior living. Smoking Status: Former smoker - *Family History Maternal History Items: Cancer - Mother of leukemia Paternal History Items: - - Denies any paternal medical history Review of Systems Constitutional: Denies: Chills, Fever, Weight Change HEENT: Denies: Head Aches, Sinus Congestion, Sinus Drainage Cardiovascular: Denies: Chest Pain, Palpitations Respiratory: Denies: Cough, Shortness of breath at rest, Sputum production Gastrointestinal: Denies: Abdominal Pain, Nausea, Vomiting Genitourinary: Denies: Dysuria Musculoskeletal: Denies: Joint Pain, Joint Tenderness Skin: Denies: Rash, Wounds Neurological: Denies: Numbness, Tingling, Focal weakness Psychiatric: Denies: Anxiety, Depression, Homicidal Ideations, Suicidal Ideations Hematologic/ Lymphatic: Denies: Easy Bruising, Easy Bleeding VTE Information - Inpt Only VTE Present on Admission: No VTE Mechan Device Prophylaxis: SCD's, None VTE Pharm Prophylaxis ordered?: No Patient Problems: Active and Suspected Problems Fall (Acute) - Physical Exam Vitals/I&O's: Vital Signs Temp Pulse Resp BP Pulse Ox 97.7 F L 74 16 168/75 H 99 11/18/19 17:11 11/18/19 19:16 11/18/19 19:16 11/18/19 19:16 11/18/19 19:16 Oxygen Delivery Method Room Air Weight: 66.9 kg Body Mass Index (BMI) 21.1 General: Alert, Oriented x3, Cooperative HEENT: Normocephalic, - - Abrasions to forehead Neck: Supple, Trachea Midline Lungs: Clear to auscultation, Normal air movement, No rhonchi, No wheeze, No rales Cardiovascular: Regular rate, Regular Rhythm, Normal S1, Normal S2, No murmurs Abdomen: Bowel Sounds Present, Soft, Non Tender Extremities: No edema, Capillary Refill Less than 3 Seconds Skin: - - Abrasions to left knee Musculoskeletal: No Muscle Wasting Neurological: Cranial nerves II-XII grossly intact Psych/Mental Status: Normal Affect, Appropriate Laboratory Results 11/18/19 19:20: WBC 7.5, RBC 4.19 L, Hgb 13.7, Hct 40.3, MCV 96.2 H, MCH 32.7 H, MCHC 34.0, RDW Std Deviation 43.8, RDW Coeff of Teena 12.4, Plt Count 205, MPV 9.4, Immature Gran % (Auto) 0.400, Neut % (Auto) 65.6, Lymph % (Auto) 15.6 L, [place] % (Auto) 11.3 H, Eos % (Auto) 6.8 H, Baso % (Auto) 0.3, Absolute Neuts (auto) 4.9, Absolute Lymphs (auto) 1.17, Nucleated RBC % 0 11/18/19 19:20: Sodium 133 L, Potassium 4.3, Chloride 100, Carbon Dioxide 29.0, Anion Gap 4 L, BUN 15, Creatinine 0.77, Estim Creat Clear Calc 52.03, Est GFR (MDRD) Af Amer 123, Est GFR (MDRD) Non-Af 102, BUN/Creatinine Ratio 19.4, Glucose 95, Calcium 9.2, Troponin I < 0.015 11/18/19 19:30: Urine Color Yellow, Urine Clarity Sl. Cloudy, Urine pH 7.0, Ur Specific [place] 1.010, Urine Protein Negative, Urine Glucose (UA) Normal, Urine Ketones Negative, Urine Occult Blood Negative, Urine Nitrite Negative, Urine Bilirubin Negative, Urine Urobilinogen Normal, Ur Leukocyte Esterase Negative, Urine RBC 0 SEEN, Urine WBC 0 SEEN, Ur Squamous Epith Cells 0-5 SEEN, Urine Bacteria 0 SEEN, Urine Mucus 0 SEEN Assessment/Plan All Active Problems Fall (Acute) Chest pain (Resolved) The patient is a 84 year old M with a significant history of Alzheimer disease; depression and anxiety; upper lipidemia; CAD status post stent who presents emergency department with fall while walking and sideways and denies any Vertigo or lightheadedness consistent with likely gait disturbance/disequilibrium. Gait disturbance/disequilibrium and fall PT and OT to work with patient for for balance training and strengthening and to make further recommendations. Will give vitamin D and vitamin B12 level. Get TSH. Continue home Tylenol. Patient does not want any narcotics. Abrasion on forehead and left knee Dry dressing change daily. Tylenol PRN for pain Rheumatoid arthritis Self-reported Take Tylenol; continued. Alzheimer disease Aricept continued DVT prophylaxis Lovenox cutaneous ordered Code Visit OBSV E&M: 78109 Initial observation care L2
[2019-11-18 21:00] VITALS: BMI 20.5
[2019-11-18 21:18] VITALS: BP 160/76; PULSE 67; RESP 18; TEMP 36.6; O2SAT 99
[2019-11-18 22:00] VITALS: PULSE 71
[2019-11-18] MEDS: Atorvastatin Calcium 80 MG Tablet PO (23:21)
[2019-11-18] MEDS: Acetaminophen 500 MG Tablet 1000 MG PO (23:21)
[2019-11-18] MEDS: Carvedilol 3.125 MG TABLET PO (23:21)
[2019-11-18 23:34] LABS: Alcohol, Blood (Medical)-Serum < 3.0 mg/dL
[2019-11-19] VITALS (17 sets, daily range): BP systolic 76–138; BP diastolic 39–62; PULSE 33–70; RESP 16–18; TEMP 35.9–36.7; O2SAT 94–98
[2019-11-19] MEDS: Donepezil HCl 10 MG Tablet PO ×2 (00:44→21:36)
--- NOTE | 2019-11-19 01:18 | EKG12_ITS ---
Test Reason : Blood Pressure : / mmHG Vent. Rate : 053 BPM Atrial Rate : 053 BPM P-R Int : 198 ms QRS Dur : 084 ms QT Int : 476 ms P-R-T Axes : 021 005 071 degrees QTc Int : 446 ms Sinus bradycardia Otherwise normal ECG When compared with ECG of 18-NOV-2019 19:54, MANUAL COMPARISON REQUIRED, DATA IS UNCONFIRMED Confirmed by RENETTA FELICIANO, RUBEN ([id number]), editor & co founder IVA HOOSK ([id number]) on 11/24/2019 9:11:46 AM Referred By: Cristobal Villagran Confirmed By:RUBEN JACKSON MD
--- NOTE | 2019-11-19 01:46 | ECHOCS_ITS ---
Reason For Study: Hypotensino Procedure This was a 2D Doppler, Color Flow transthoracic echocardiogram. The study was technically difficult. Contrast injection was performed. Exam performed portable in patient room. Left Ventricle Normal LV size. Left ventricular systolic function is normal. The estimated ejection fraction is 65 %. No regional wall motion abnormalities noted. Right Ventricle Normal RV size. Normal systolic function. Atria Normal left atrium. Normal right atrium. Mitral Valve Normal mitral valve. Tricuspid Valve Normal tricuspid valve. Mild tricuspid valve insufficiency. Pulmonary artery systolic pressure is 30 mmHg. Aortic Valve The aortic valve is not well visualized. Pulmonic Valve The pulmonic valve is not well visualized. Great Vessels Normal aortic root. The pulmonary artery is normal size. Normal inferior vena cava. Pericardium/Pleural No pericardial effusion. Medication Diluted definity 3ml given slow IV push to enhance endocardial definition. MMode/2D Measurements & Calculations LVIDd: 3.8 cm IVSd: 1.1 cm Ao root diam: 3.3 cm LVIDs: 2.2 cm LVPWd: 0.96 cm LA dimension: 3.8 cm FS: 42.2 % LAV(MOD-bp): 51.3 ml LA A4 area: 19.7 cm2 LAV(MOD-bp) Indexed: 28.4 ml/m2 LAV(MOD-sp2): 46.6 ml LAV(MOD-sp4): 55.4 ml Time Measurements MV dec time: 0.29 sec Doppler Measurements & Calculations MV E max jovanni: 83.3 cm/sec Lat Peak E' Jovanni: 11.3 cm/sec Med Peak E' Jovanni: 7.0 cm/sec MV A max jovanni: 108.6 cm/sec E/E' lat: 7.4 E/E' med: 12.0 MV E/A: 0.77 MV V2 max: 110.7 cm/sec MV P1/2t max jovanni: 91.5 cm/sec Ao V2 max: 166.6 cm/sec MV max P.9 mmHg MV P1/2t: 117.2 msec Ao max P.1 mmHg MV V2 mean: 52.6 cm/sec MV dec slope: 228.7 cm/sec2 Ao V2 mean: 99.4 cm/sec MV mean P.3 mmHg Ao mean P.7 mmHg MV V2 VTI: 37.3 cm MVA(P1/2t): 1.9 cm2 Ao V2 VTI: 35.6 cm LV V1 max: 124.9 cm/sec PA V2 max: 87.6 cm/sec TR max jovanni: 249.9 cm/sec LV V1 max P.2 mmHg TR max P.0 mmHg LV V1 mean P.9 mmHg LV V1 mean: 79.5 cm/sec LV V1 VTI: 28.4 cm Interpretation Summary Normal LV size. Left ventricular systolic function is normal. The estimated ejection fraction is 65 %. Mild tricuspid valve insufficiency. Contrast injection was performed. Ordering Physician: Cristobal Villagran Referring Physician: Shasta Benites M.D. Performed By: Juan J Mejias RCS
[2019-11-19] MEDS: 0.9% Normal Saline 1,000 ML 500 ML IV (02:04)
[2019-11-19] MEDS: 0.9% Saline Lock 10 ML Syringe IV (02:04)
[2019-11-19 05:49] LABS: Absolute Lymphocyte Count 0.91 X10^3/uL (0.83-4.51); Absolute Neutrophil Count 5.3 X10^3/uL (2.0-7.7); Basophil# 0.03 X10^3/uL; Basophil% 0.4 % (0-1); Eosinophil# 0.26 X10^3/uL; Eosinophils% 3.6 % (0-5); Hematocrit 33.6 % (40-54); Hemoglobin 11.6 g/dL (13.0-16.5); Lymphocyte # 0.91 X10^3/ul (4.0); Lymphocyte % 12.6 % (19-41); Mean Corp Hgb Conc 34.5 g/dL (32-36); Mean Corpuscular Hgb 32.9 pg (27.0-32.0); Mean Corpuscular Volume 95.2 fL (80-94); Mean Platelet Vol. 9.3 fl (6.2-12.0); Monocyte# 0.69 X10^3/uL; Monocyte% 9.5 % (0-10); NRBC Flagged by Analyzer 0 % (0-5); Neutrophil # 5.34 X10^3/uL (2.7-7.7); Neutrophil % 73.6 % (47-70); Platelet Count 179 K/mm3 (150-450); RBC Distribution Width CV 12.6 % (11.6-14.6); RBC Distribution Width SD 43.8 fl (35.1-43.9); Red Blood Count 3.53 M/mm3 (4.6-6.2); White Blood Count 7.3 K/mm3 (4.4-11.0)
[2019-11-19] MEDS: Acetaminophen 500 MG Tablet 1000 MG PO ×3 (06:00→21:36)
[2019-11-19 06:08] LABS: Anion Gap 3 (5-15); BUN 14 mg/dL (7-18); BUN/Creat Ratio 19.9 RATIO (10-20); Calcium,Total 8.1 mg/dL (8.5-10.1); Chloride 103 mmol/L (98-107); EST Glomerular Filtration Rate 113 mL/min (>60); Est Glom Filt Rate - Afr Amer 137 mL/min (>60); Estimated Creatinine Clearance 50.48 ml/min; Glucose 94 mg/dL (74-106); Potassium 4.3 mmol/L (3.5-5.1); Sodium Level 133 mmol/L (136-145)
[2019-11-19] MEDS: Menthol/Lanolin/Calamine/Znox 113 GM Tube 1 APPLIC TOPICAL (06:44)
[2019-11-19] MEDS: Calcium (Elemental) 500 MG Tablet PO (07:57)
[2019-11-19] MEDS: Sertraline 50 MG Tablet PO (07:58)
[2019-11-19 09:19] LABS: Vitamin B12 320 pg/mL (211-911); Vitamin D,25 Hydroxy 31.7 ng/mL (29.95-100.01)
--- NOTE | 2019-11-19 13:26 | CASEMGMT ---
RN CM Note: attempted to complete RN CM assessment. Pt is unable to participate in assessment. Attempted call to and daughter's phones, no answers. Taye BURTN RN ACM
--- NOTE | 2019-11-19 14:56 | CASEMGMT ---
RN CM Assessment Presentation: Fall, debility Intro role of CM and purpose of RN CM assessment to daughter via phone. Pt has dementia, unable to participate. also has dementia and is @ [facility] SN[facility] per daughter.. Demographics, PCP and Pharmacy verified. Per daughter she is having difficulty because pt lives at home alone and she does not feel he is safe, however pt is not willing to leave home.. Daughter states she has found freezer off, pt has falls and inferred poor judgement. Daughter Discussed assessment, and daughter would like to speak with rn social work. RN CM let daughter know Héctor SW is available on unit until 4 pm. Daughter is getting her hair cut prior to coming to hospital. PCP: Dr. Benites Preferred Pharmacy: will need to clarify with daughter Insurance: [employer] Prescription Benefit: yes LNOK: , seferino- also has dementia and is SNF presently. Daughter [place] is contact. Living Arrangements: Lives in one story home alone. gets meals on wheels which pt heats up in microwave or will use toaster oven. Daughter states pt is still independent with showering and dressing. Family assists with grocery shopping and transportation. Transportation: family drives DME: walker, walking stick, but pt does not use. Social Work Referral: discuss dc options for pt HHC/SNF: no history Patient DC goals: undetermined DC PLAN: undetermined. Taye JAVIER RN ACM
--- NOTE | 2019-11-19 16:34 | CASEMGMT ---
Social Work Note Physician updated this worker that pt's daughter is at [facility] and would like to get pt to SNF. SW reviewed PT/OT notes and pt walked 300ft contact guard assist of 1. JENELLE updated physician that pt may get denied to go to SNF. Physician states that if pt gets denied he will not do a peer to peer. Physician also states pt is confused enough that he is not able to make his own decisions at this time. JENELLE attempted to call Heydi at [facility] to discuss pt's case but no answer. JENELLE left message explaining pt's case and if pt would be approved for SNF. JENELLE met with pt's daughter Pearl and introduced self and role at [facility]. JENELLE provided Pearl with list of SNF that accept pt's insurance. Heydi states she her first choice is [facility] as that is where pt's is at. JENELLE explained to Pearl that pt is moving well and he may get denied SNF. JENELLE explained that if pt gets denied SNF then the choices are paying privately for SNF, going to [facility], or going home with private duty aides and HHC. Heydi states understanding. JENELLE placed a call to Linnea at [facility] and provided referral. Linnea states they should be able to accept pt. JENELLE informed Linnea that this worker did call [facility] regarding pt's case and is waiting for call back. Linnea states understanding. JENELLE faxed referral to both Linnea at [facility] and Heydi at [facility]. Plan: [facility] pending acceptance and pre-cert Alysa Acuna CYCLE MANAGER, POST PARTUM NURSE
--- NOTE | 2019-11-19 18:47 | PN_ITS ---
Patient Problems: Active and Suspected Problems Fall (Acute) Subjective: Patient was seen and examined today, he was able to walk down the harmon with his walker with assistance of nursing today, I talked with his daughter who came in to the hospital this afternoon and the daughter is not able to provide care for her father, she stated that she would like him to go to a detention facility if possible, her mother is currently at [facility]. - Physical Exam Vitals/I&O's: Vital Signs Temp Pulse Resp BP Pulse Ox 97.9 F 63 18 138/62 H 98 11/19/19 14:05 11/19/19 16:31 11/19/19 14:05 11/19/19 14:05 11/19/19 14:05 Oxygen Delivery Method Room Air Weight: 64.9 kg Body Mass Index (BMI) 20.5 Intake and Output for Last 24 Hours 11/17/19 11/18/19 11/19/19 23:59 23:59 23:59 Intake Total 2039 Output Total 0 / 0 Balance 2039 General: Alert, Oriented x3, Cooperative, No apparent distress, Well developed HEENT: Atraumatic, PERRLA, EOMI, Normocephalic Oral: Moist Mucosa Neck: Supple, Trachea Midline, Thyroid Normal Size and Texture Lungs: Clear to auscultation, Normal air movement, No rhonchi, No wheeze, No rales Cardiovascular: Regular rate, Regular Rhythm, Normal S1, Normal S2, No murmurs, No Ectopic Activity, PMI Normal Abdomen: Bowel Sounds Present, Soft, Non Tender, Non-Distended Extremities: No clubbing, No cyanosis, No edema, Capillary Refill Less than 3 Seconds Skin: No rashes, No breakdown Musculoskeletal: No Tenderness to Palpation of Joints or Extremities Neurological: Cranial nerves II-XII grossly intact, Sensory exam intact to light touch and pain Psych/Mental Status: Flat Affect, - - Patient is alert but confused Laboratory Results 11/18/19 19:20: WBC 7.5, RBC 4.19 L, Hgb 13.7, Hct 40.3, MCV 96.2 H, MCH 32.7 H, MCHC 34.0, RDW Std Deviation 43.8, RDW Coeff of Teena 12.4, Plt Count 205, MPV 9.4, Immature Gran % (Auto) 0.400, Neut % (Auto) 65.6, Lymph % (Auto) 15.6 L, [place] % (Auto) 11.3 H, Eos % (Auto) 6.8 H, Baso % (Auto) 0.3, Absolute Neuts (auto) 4.9, Absolute Lymphs (auto) 1.17, Nucleated RBC % 0 11/18/19 19:20: Sodium 133 L, Potassium 4.3, Chloride 100, Carbon Dioxide 29.0, Anion Gap 4 L, BUN 15, Creatinine 0.77, Estim Creat Clear Calc 52.03, Est GFR (MDRD) Af Amer 123, Est GFR (MDRD) Non-Af 102, BUN/Creatinine Ratio 19.4, Glucose 95, Calcium 9.2, Troponin I < 0.015 11/18/19 19:20: TSH 2.10 11/18/19 19:30: Urine Color Yellow, Urine Clarity Sl. Cloudy, Urine pH 7.0, Ur Specific [place] 1.010, Urine Protein Negative, Urine Glucose (UA) Normal, Urine Ketones Negative, Urine Occult Blood Negative, Urine Nitrite Negative, Urine Bilirubin Negative, Urine Urobilinogen Normal, Ur Leukocyte Esterase Negative, Urine RBC 0 SEEN, Urine WBC 0 SEEN, Ur Squamous Epith Cells 0-5 SEEN, Urine Bacteria 0 SEEN, Urine Mucus 0 SEEN 11/18/19 23:00: Ethyl Alcohol < 3.0 11/19/19 05:30: Vitamin B12 320, Vitamin D 25-Hydroxy 31.7 11/19/19 05:30: WBC 7.3, RBC 3.53 L, Hgb 11.6 L, Hct 33.6 L, MCV 95.2 H, MCH 32.9 H, MCHC 34.5, RDW Std Deviation 43.8, RDW Coeff of Teena 12.6, Plt Count 179, MPV 9.3, Immature Gran % (Auto) 0.300, Neut % (Auto) 73.6 H, Lymph % (Auto) 12.6 L, [place] % (Auto) 9.5, Eos % (Auto) 3.6, Baso % (Auto) 0.4, Absolute Neuts (auto) 5.3, Absolute Lymphs (auto) 0.91, Nucleated RBC % 0 11/19/19 05:30: Sodium 133 L, Potassium 4.3, Chloride 103, Carbon Dioxide 27.0, Anion Gap 3 L, BUN 14, Creatinine 0.70, Estim Creat Clear Calc 50.48, Est GFR (MDRD) Af Amer 137, Est GFR (MDRD) Non-Af 113, BUN/Creatinine Ratio 19.9, Glucose 94, Calcium 8.1 L Current Medications Acetaminophen (Tylenol) 650 mg PO Q6H PRN PRN PRN Reason: Pain Score 1-10/Temp > 100.7 F Acetaminophen (Tylenol) 1,000 mg PO Q8 [facility] Last Admin: 11/19/19 14:06 Dose: 1,000 mg Documented by: Al Hydroxide/Mg Hydroxide (Mylanta Ii) 30 ml PO Q6H PRN PRN PRN Reason: Gastric Burning Atorvastatin Calcium (Lipitor) 80 mg PO QHS [facility] Last Admin: 11/18/19 23:21 Dose: 80 mg Documented by: Calamine/Phenol (Calmoseptine Ointment) 1 applic TOPICAL 0600,2200 [facility]; Protocol Last Admin: 11/19/19 06:44 Dose: 1 applicatio Documented by: Calcium Carbonate (Os-Yung 500) 500 mg PO DAILY@0800 [facility] Last Admin: 11/19/19 07:57 Dose: 500 mg Documented by: Cholecalciferol (Vitamin D) 1,000 unit PO DAILY [facility] Last Admin: 11/19/19 07:57 Dose: 1,000 unit Documented by: Donepezil HCl (Aricept) 10 mg PO QHS [facility] Glucagon () 1 mg IM .X1 PRN PRN Reason: Hypoglycemia Dextrose (Dextrose 10%-Water) 250 mls @ 999 mls/hr IV .Q16M PRN; Protocol PRN Reason: HYPOGLYCEMIA Sodium Chloride () 250 mls @ 15 mls/hr IV .[id number] PRN PRN Reason: Saline Flush Sodium Chloride () 250 mls @ 15 mls/hr IV .[id number] PRN PRN Reason: Additional IVPB Infusion Melatonin (Melatonin) 3 mg PO QHS PRN PRN PRN Reason: INSOMNIA Ondansetron HCl (Zofran) 4 mg IV Q8H PRN PRN PRN Reason: NAUSEA/VOMITING Sertraline HCl (Zoloft) 50 mg PO DAILY [facility] Last Admin: 11/19/19 07:58 Dose: 50 mg Documented by: Sodium Chloride () 10 - 40 ml IV UD PRN PRN Reason: SALINE FLUSH Last Admin: 11/19/19 02:04 Dose: 10 ml Documented by: Medical Necessity - Tobacco Use Smoking Status: Former smoker Assessment/Plan All Active Problems Fall (Acute) Chest pain (Resolved) #1 generalized debility-PT and OT are seeing patient, we will attempt to get placement in detention facility #2 Alzheimer's dementia #3 coronary artery disease #4 hyperlipidemia Code Visit OBSV E&M: 86361 Subsequent observation care L3
[2019-11-19] MEDS: Atorvastatin Calcium 80 MG Tablet PO (21:36)
[2019-11-20 03:14] VITALS: BP 123/60; PULSE 70; RESP 20; TEMP 36.9; O2SAT 95
[2019-11-20 06:00] VITALS: PULSE 66
[2019-11-20] MEDS: Menthol/Lanolin/Calamine/Znox 113 GM Tube 1 APPLIC TOPICAL (06:24)
[2019-11-20] MEDS: Acetaminophen 500 MG Tablet 1000 MG PO (06:24)
[2019-11-20 09:13] VITALS: BP 134/65; PULSE 59; RESP 16; TEMP 36.7; O2SAT 96
[2019-11-20] MEDS: Sertraline 50 MG Tablet PO (09:40)
[2019-11-20] MEDS: Calcium (Elemental) 500 MG Tablet PO (09:40)
--- NOTE | 2019-11-20 10:46 | CASEMGMT ---
Addendum entered by Alysa Acuna 11/20/19 11:28: JENELLE spoke with Heydi at [facility]. Heydi confirms that she will approve pt for SNF. JENELLE placed a call to Linnea at [facility] and updated her that pt has been approved by [facility] and should discharge today. Linnea states understanding. Plan: [facility] today Original Note: Social Work Note SW received message from Heydi at [facility] stating they should be able to approve pt for SNF. JEENLLE placed a call to Heydi at [facility] and left message asking to confirm if they are able to approve pt to SNF. SW waiting for call back. JENELLE also placed a call to Linnea at [facility] that this worker is waiting for confirmation from [facility]. If pt is approved for SNF pt could discharge today. Linnea states understanding. Plan: [facility] pending pre-cert Alysa Acuna DISPATCHER BUS AND TROLLEY, WILDLIFE AND GAME PROTECTOR
--- NOTE | 2019-11-20 11:37 | CASEMGMT ---
Addendum entered by Chris Hazel 11/20/19 11:47: MADRIGAL form reviewed with daughter over phone. Daughter is aware of OBS status and RN MARCELLUS let her know form would be placed in room with patient. Taye LIN Original Note: RN MARCELLUS Note: Call to daughter's cell phone. No answer- name identified on message. CM #, reason for calling was to discuss MADRIGAL form and OBS status for patient. Requested call back or if daughter is coming to hospital, form can be reviewed then. Taye LIN
--- NOTE | 2019-11-20 11:46 | PCM.TXEXTCAR ---
- Diet 11/18/19 21:18 Diet: Regular Diet Food consistency:: Regular Liquid Consistency:: Regular/Thin - Wound(s) Forehead Wound Type: Abrasion Left Knee Wound Type: Abrasion - Therapies Weight Bearing: Full weight bearing Physical Therapy: Eval and Treat Occupational Therapy: Eval and Treat - Problem/Diagnosis (1) Depression Status: Chronic Current Visit: No (2) Alzheimer's disease Status: Chronic Current Visit: No (3) Fall Status: Acute Current Visit: Yes (4) CAD (coronary artery disease) Status: Chronic Current Visit: No - Allergies/Procedures Done in Hospital Allergies/Adverse Reactions: Allergies Penicillins Allergy (Verified 08/16/18 13:34) Unknown Procedures: None - Type of Care/Length of Stay Estimated LOS: Convalescent Care Less Than 30 days Type of Care Needed: Skilled Rehab Potential: Good Prognosis: Good - Additional Orders/Day of Discharge H&P will serve as current which was dated: 11/18/19 Day of Discharge: 11/20/19 - Follow Up Care Primary Care Physician: Shasta Benites MD [Primary Care Provider] -
--- NOTE | 2019-11-20 13:56 | CASEMGMT ---
Social Work Note Physician is discharging pt to SNF today. JENELLE faxed completed discharge paperwork to [facility] including transfer to extended care facility, signed medication list and any scripts. Original in SNF folder and copy on pt's chart. JENELLE completed PAS/RR in HENS. Original in SNF folder and copy on pt's chart. JENELLE spoke with RN who states pt mentioned that his daughter was going to transport pt. JENELLE placed a call to pt's daughter Pearl and informed her that pt has been approved for SNF and that pt is going to discharge today. JENELLE asked Pearl about transportation. Pearl states she works third shift and has only got an hour and half of sleep the past 24 hours and will not be able to transport pt. JENELLE informed Pearl that if pt is able to transport via wheelchair van then it will be private pay and informed Pearl that wheelchair vans are not always available to transport. Pearl states she would like an update once transportation is arranged. JENELLE spoke with Linnea at [facility] who states they are not able to transport pt. JENELLE spoke with RN who states cot could be justified for pt for transport. JENELLE placed a call to [facility] and arranged transportation via cot for 3:00pm. Transportation form completed and placed on SNF folder and copy on pt's chart. JENELLE placed a call to pt's daughter Pearl and updated her on transportation time and that pt will be transported via cot. JENELLE updated Linnea at [facility] and RN of transportation time. Plan: [facility] skilled today with [facility] transporting pt via cot at 3:00pm Alysa Acuna MSW, HARDWARE TRAINER
[2019-11-20 14:29] VITALS: BP 124/58; PULSE 67; RESP 16; TEMP 36.6; O2SAT 98
--- NOTE | 2019-11-23 15:15 | DS.PCM_ITS ---
Discharge Date and Diagnosis Date of Admission: 11/18/19 Date of Discharge: 11/20/19 - Primary Discharge Diagnosis #1 generalized debility #2 Alzheimer's dementia #3 coronary artery disease #4 hyperlipidemia - Secondary Discharge Diagnosis Chronic Problems Compression fracture of L2 (Chronic) Hyperlipidemia (Chronic) Depression (Chronic) Alzheimer's disease (Chronic) Hyponatremia (Chronic) Normochromic normocytic anemia (Chronic) Anxiety (Chronic) Alcohol abuse (Chronic) CAD (coronary artery disease) (Chronic) Hospital Course and Treatment Operations: None Procedures: None Summary of Care Provided: The patient is a 84 year old M who was seen in the emergency room at [facility] after having had a fall at home, he suffered an abrasion to his forehead. Patient has a history of dementia and is living alone with caregivers coming in to help him. Work-up in the emergency room included labs was unremarkable, patient was placed in observation status on [facility] 3 and seen by PT and OT. Discussion was carried out with the patient's daughter who stated that she was unable to care for the patient and that he was unable to go home by himself. She requested that the patient go to a prison facility for short-term physical therapy. On 11/20/2019, patient was seen and examined and felt to be in stable good condition for discharge to prison facility: On examination he appeared in good health and spirits. Vital signs as documented. Skin warm and dry and without overt rashes. Neck without JVD. Lungs clear. Heart exam notable for regular rhythm, normal sounds and absence of murmurs, rubs or gallops. Abdomen unremarkable and without evidence of organomegaly, masses, or abdominal aortic enlargement. Extremities nonedematous. Neuro: Cranial nerves II through XII are grossly intact, no focal motor deficits were noted, sensation to light touch and pinprick intact. Psych: Patient is alert, he is confused but is directable - Physical Exam Vitals/I&O's: Vital Signs Temp Pulse Resp BP Pulse Ox 97.8 F 67 16 124/58 H 98 11/20/19 14:29 11/20/19 14:29 11/20/19 14:29 11/20/19 14:29 11/20/19 14:29 Oxygen Delivery Method Room Air Weight: 64.9 kg Body Mass Index (BMI) 20.5 Home Medications: Medications to take at Discharge Aspirin [Aspirin, Baby] 81 mg PO DAILY@0800 10/04/16 Atorvastatin Calcium [Lipitor] 80 mg PO QHS 10/04/16 Acetaminophen [Tylenol] 1,000 mg PO Q8 08/19/18 Calcium (Elemental) [Os-Yung 500] 500 mg PO DAILY@0800 08/19/18 Cholecalciferol (Vitamin D3) [Vitamin D3] 1,000 unit PO DAILY 08/19/18 Donepezil HCl [Aricept] 10 mg PO QHS 11/18/19 Sertraline HCl [Zoloft] 100 mg PO DAILY #1 tab 11/20/19 Following Prescrptions Were Given to Patient: Sertraline HCl [Zoloft] 100 mg PO DAILY #1 tab Primary Care Physician: Shasta Benites MD [Primary Care Provider] - Patient Instructions: FALL, Mechanical Disposition: Penitentiary facility Minutes spent on discharge:: 30 Patient Condition:: Stable Medical Necessity - Tobacco Use Smoking Status: Former smoker Meaningful Use Info Meaningful Use Diagnoses (Choose all that apply): None applicable Code Visit OBSV E&M: 20105 Observation care discharge
== END 2019-11-20 15:10 | disposition skilled nursing facility (03) ==
LOC: ED 18:33 → MS3 20:28
PROVIDERS: Admitting Provider Hospitalist; Emergency Provider Emergency Medicine; Family Provider Internal Medicine; PCP Internal Medicine; Referring Provider Hospitalist; Visit Provider Internal Medicine
DX: R53.81 Other malaise (principal); S00.81XA Abrasion of other part of head, initial encounter; S80.212A Abrasion, left knee, initial encounter; W01.0XXA Fall on same level from slipping, tripping and stumbling without subsequent striking against object, initial encounter; Y93.01 Activity, walking, marching and hiking; Y92.480 Sidewalk as the place of occurrence of the external cause; R42 Dizziness and giddiness; G30.9 Alzheimer's disease, unspecified; F02.80 Dementia in other diseases classified elsewhere, unspecified severity, without behavioral disturbance, psychotic disturbance, mood disturbance, and anxiety; E78.5 Hyperlipidemia, unspecified; F32.9 Major depressive disorder, single episode, unspecified; I25.10 Atherosclerotic heart disease of native coronary artery without angina pectoris; R00.1 Bradycardia, unspecified; E87.1 Hypo-osmolality and hyponatremia; F41.9 Anxiety disorder, unspecified; Z79.899 Other long term (current) drug therapy; Z79.82 Long term (current) use of aspirin; Z87.891 Personal history of nicotine dependence; R26.9 Unspecified abnormalities of gait and mobility
CPT/HCPCS: 36415; 70450; 71045; 72125; 80048; 80320; 81001; 82306; 82607; 84443; 84484; 85025; 93005; 93306; 96360; 96361; 97110; 97162; 97166; 97530; 99218; 99285; J7030; Q9957; A4216; C8929; G0378; G0480

== ENCOUNTER 2020-01-13 11:44 | Emergency (ER) | payer MEDICARE, SELFPAY ==
[2019-11-18 21:00] VITALS: BMI 20.5
[2020-01-13 11:45] VITALS: BP 124/72; PULSE 78; RESP 16; TEMP 36.7; O2SAT 99; BMI 20.7
--- NOTE | 2020-01-13 12:09 | EKG12_ITS ---
Test Reason : MEDICAL CLEARANCE Blood Pressure : / mmHG Vent. Rate : 070 BPM Atrial Rate : 070 BPM P-R Int : 194 ms QRS Dur : 086 ms QT Int : 420 ms P-R-T Axes : 031 000 040 degrees QTc Int : 453 ms Sinus rhythm with frequent Premature ventricular complexes Possible Left atrial enlargement Borderline ECG Confirmed by CHEMO FELICIANO, BRITANY ([id number]), rewrite editor IVA HOOKS ([id number]) on 01/18/2020 8:45:37 AM Referred By: CAREY Confirmed By:SANDRA MCLAIN MD
--- NOTE | 2020-01-13 12:09 | RAD_ITS ---
EXAM DESCRIPTION: PORTABLE AP CHEST CLINICAL HISTORY: 85 years Male, CONFUSION CONFUSION COMPARISON: Previous chest obtained on 11/18/2019 FINDINGS: The thorax is intact. The heart and mediastinum appear to be within normal limits. The lungs appear to be well areated without evidence of pneumonic consolidation or pleural effusion. RAD/Chest 1 View (Portable) IMPRESSION: Normal portable chest. Electronically Signed: Leo Ronak, at 13:54 EST Tel , Service support ,
--- NOTE | 2020-01-13 12:09 | CT_ITS ---
STUDY: CT BRAIN WITHOUT CONTRAST REASON FOR EXAM: Male, 85 years old. CHANGE IN MENTAL STATUS, CONFUSION, ACUTE ONSET OF AGGRESSIVE BEHAVIOR, MEDICAL EVAL RADIATION DOSAGE (If Supplied By Facility): CTDIvol = ( 44.99 ) mGy, DLP = ( 829.85 ) mGycm CLINICAL HISTORY: 85 years Male, CHANGE IN MENTAL STATUS, CONFUSION, ACUTE ONSET OF AGGRESSIVE BEHAVIOR, MEDICAL EVAL COMPARISON: None. TECHNIQUE: A CT scan of the head was performed without IV contrast in the axial plane. Coronal and sagittal reconstruction images were also obtained. This exam was performed according to our departmental dose-optimization program, which includes automated exposure control, adjustment of the mA and/or kV according to patient size and/or use of iterative reconstruction technique. FINDINGS: The dani, medulla, and cerebellum appear to be normal. The ventricles and sulci are normal in size and shape. The basal ganglia appear to be normal. The inner and outer tables of the skull are intact. The left frontal sinus shows some mucoperiosteal reaction from low-grade sinusitis. Mucoperiosteal reaction seen in the ethmoid sinuses from sinusitis. The patient''s had a left uncinectomy and there is mucoperiosteal reaction seen in both maxillary sinuses from sinusitis. Also noted is some mucoperiosteal reaction in the sphenoid sinus from sinusitis.. The mastoid air cells are normal. CT/Brain/Head without Contrast IMPRESSION: 1. Pansinusitis. 2. Otherwise normal CT scan of the head. Electronically Signed: Leo Simons, at 13:54 EST Tel , Service support ,
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
[2020-01-13 12:53] LABS: Absolute Lymphocyte Count 1.03 X10^3/uL (0.83-4.51); Absolute Neutrophil Count 3.8 X10^3/uL (2.0-7.7); Basophil# 0.04 X10^3/uL; Basophil% 0.7 % (0-1); Eosinophil# 0.27 X10^3/uL; Eosinophils% 4.7 % (0-5); Hematocrit 38.8 % (40-54); Hemoglobin 13.1 g/dL (13.0-16.5); Lymphocyte # 1.03 X10^3/ul (4.0); Lymphocyte % 17.9 % (19-41); Mean Corp Hgb Conc 33.8 g/dL (32-36); Mean Corpuscular Hgb 32.5 pg (27.0-32.0); Mean Corpuscular Volume 96.3 fL (80-94); Mean Platelet Vol. 9.2 fl (6.2-12.0); Monocyte# 0.65 X10^3/uL; Monocyte% 11.3 % (0-10); NRBC Flagged by Analyzer 0 % (0-5); Neutrophil # 3.75 X10^3/uL (2.7-7.7); Neutrophil % 65.1 % (47-70); Platelet Count 224 K/mm3 (150-450); RBC Distribution Width CV 12.7 % (11.6-14.6); RBC Distribution Width SD 44.9 fl (35.1-43.9); Red Blood Count 4.03 M/mm3 (4.6-6.2); White Blood Count 5.8 K/mm3 (4.4-11.0)
[2020-01-13 13:12] LABS: Anion Gap 5 (5-15); BUN 11 mg/dL (7-18); BUN/Creat Ratio 13.9 RATIO (10-20); Calcium,Total 9.3 mg/dL (8.5-10.1); Chloride 93 mmol/L (98-107); Creatinine, Serum 0.79 mg/dL (0.70-1.30); EST Glomerular Filtration Rate 99 mL/min (>60); Est Glom Filt Rate - Afr Amer 120 mL/min (>60); Estimated Creatinine Clearance 50.24 ml/min; Glucose 176 mg/dL (74-106); Potassium 3.8 mmol/L (3.5-5.1); Sodium Level 127 mmol/L (136-145)
[2020-01-13 13:34] LABS: Alcohol, Blood (Medical)-Serum < 3.0 mg/dL
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
[2020-01-13 14:00] VITALS: RESP 16
[2020-01-13 14:12] LABS: Bacteria 0 SEEN /hpf (None Seen); Mucous, Urine 0 SEEN /hpf (<or=2+); Red Blood Cells-Urine 0 SEEN /hpf (0-5); Squamous Epithelial Cells - UA 0 SEEN /hpf (0-5); White Blood Cells 0 SEEN /hpf (0-5)
[2020-01-13 14:20] LABS: Color, Urine Yellow (Yellow); Glucose, Dipstick 50 mg/dl (Normal); Ketone-Dipstick Negative (Negative); Leukocyte Esterase-Dipstick Negative /ul (Negative); Nitrite-Dipstick Negative (Negative); Occult Blood-Urine Negative /ul (Negative); Protein-Dipstick Negative (Negative); Specific Gravity, Urine 1.005 (1.002-1.030); Urine Bilirubin Dipstick Negative (Negative); Urine Clarity Clear (Clear); Urine Urobilinogen Normal (Normal)
[2020-01-13 14:46] LABS: Amphetamine Urine VISTA NEGATIVE (<1000 ng/mL); Barbiturate Urine VISTA NEGATIVE (< 200 ng/mL); Benzodiazepine Urine VISTA NEGATIVE (< 200 ng/mL); Cocaine Urine VISTA NEGATIVE (< 300 ng/mL); Ecstacy Urine VISTA NEGATIVE (< 500 ng/mL); Methadone Urine VISTA NEGATIVE (< 300 ng/mL); PCP Urine VISTA NEGATIVE (< 25 ng/mL); THC Urine VISTA NEGATIVE (< 50 ng/mL); Vista UDS pH Range 7
--- NOTE | 2020-01-13 14:51 | ED.RN ---
PT CONTINUES TO WALK AROUND ROOM AND INTO HALLWAY. PT IS COOPERATIVE AND DIRECTABLE
--- NOTE | 2020-01-13 15:16 | CM.ED ---
SOCIAL WORK REFERRAL FAXED TO [facility]. AWAITING ACCEPTANCE. Abby GILMAN, GALLERY OR MUSEUM TECHNICIAN, PLUG SHAPER HAND.
[2020-01-13 16:00] VITALS: RESP 16
--- NOTE | 2020-01-13 16:06 | ED.RN ---
JOEL FROM CASE MANAGEMENT UP TO TALK WITH PT. PT PLAN TO GO TO [facility]. WAITING ON ACCEPTANCE
--- NOTE | 2020-01-13 16:10 | CM.ED ---
SOCIAL WORK MET WITH PATIENT IN ROOM TO DISCUSS PLACEMENT. PATIENT STATING WANTING TO RETURN HOME. PATIENT REQUESTING TO SEE WHO IS ALSO IN THE EMERGENCY DEPARTMENT. UPDATED NURSING ON PATIENT'S REQUEST. Abby GILMAN MSW, MECHANIC GENERAL OPERATIONAL TEST.
--- NOTE | 2020-01-13 17:18 | ED.RN ---
PT IN TO SEE PER REQUEST
[2020-01-13 17:34] VITALS: BP 155/79; PULSE 77; RESP 16; O2SAT 96
--- NOTE | 2020-01-13 17:35 | CM.ED ---
SOCIAL WORK CALL TO [facility]. SPOKE WITH HAL. PER HAL, PATIENT ACCEPTED BY DR. RAY TO ROOM 287. NURSE TO CALL REPORT TO . STAFF UPDATED. CAE ENGINEER TO SET UP TRANSPORT. Abby GILMAN, WATER TREATMENT PLANT REPAIRER, ABATEMENT WORKER.
--- NOTE | 2020-01-13 17:41 | ED.RN ---
pt eating dinner in room. compliant at present.accepted at [facility]. calling for adele
--- NOTE | 2020-01-13 17:49 | NURSING ---
Report called to Macey at [facility]; reported to her that [facility] would be here at 2100 with an ETA of 2200 to their facility; she requested that we call with any changes in the meantime
--- NOTE | 2020-01-13 17:55 | NURSING ---
THEODORA COMING IN 1 HR
--- NOTE | 2020-01-13 17:55 | NURSING ---
Called Macey back and updated that transport will be here to grain picker pt at approx 1900, putting them at their facility around 1999
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
== END 2020-01-13 19:24 ==
PROVIDERS: Emergency Provider Emergency Medicine; PCP Internal Medicine
DX: G30.9 Alzheimer's disease, unspecified (principal); F02.81 Dementia in other diseases classified elsewhere, unspecified severity, with behavioral disturbance; R29.6 Repeated falls; J32.4 Chronic pansinusitis; I49.3 Ventricular premature depolarization; F32.9 Major depressive disorder, single episode, unspecified; E78.5 Hyperlipidemia, unspecified; F41.9 Anxiety disorder, unspecified; I25.10 Atherosclerotic heart disease of native coronary artery without angina pectoris; Z79.82 Long term (current) use of aspirin; Z79.899 Other long term (current) drug therapy
CPT/HCPCS: 70450; 71045; 80048; 80307; 80320; 81001; 84484; 85025; 93005; 99281; 99283; G0480

== ENCOUNTER → 2020-04-30 14:58 | Outpatient (CLI) | payer MEDICARE, SELFPAY | PROVIDERS: PCP Internal Medicine; Visit Provider Internal Medicine | DX: R50.9 Fever, unspecified (principal); R09.02 Hypoxemia | CPT/HCPCS: 87635; U0003 ==

== ENCOUNTER → 2020-05-17 | Outpatient (CLI) | payer MEDICARE, SELFPAY | END | disposition home or self-care (01) | LOC: LABSPEC 14:03 | PROVIDERS: PCP Internal Medicine; Referring Provider Internal Medicine; Visit Provider Internal Medicine | DX: Z20.828 Contact with and (suspected) exposure to other viral communicable diseases (principal) | CPT/HCPCS: 87635; U0003 ==

== ENCOUNTER → 2021-05-08 05:00 | Outpatient (REF) | payer MEDICARE, SELFPAY ==
[2021-05-08 09:18] LABS: Hematocrit 33.8 % (40-54); Hemoglobin 11.1 g/dL (13.0-16.5); Mean Corp Hgb Conc 32.8 g/dL (32-36); Mean Corpuscular Volume 94.4 fL (80-94); Mean Platelet Vol. 9.8 fl (6.2-12.0); Platelet Count 231 K/mm3 (150-450); RBC Distribution Width CV 13.3 % (11.6-14.6); Red Blood Count 3.58 M/mm3 (4.6-6.2); White Blood Count 6.3 K/mm3 (4.4-11.0)
== END ==
LOC: OLS.SW400 05:00
PROVIDERS: PCP Internal Medicine; Visit Provider Internal Medicine
DX: D64.9 Anemia, unspecified (principal); R53.83 Other fatigue; F03.90 Unspecified dementia, unspecified severity, without behavioral disturbance, psychotic disturbance, mood disturbance, and anxiety; E55.9 Vitamin D deficiency, unspecified
CPT/HCPCS: 36415; 85027

== ENCOUNTER → 2021-06-05 04:00 | Outpatient (REF) | payer MEDICARE, SELFPAY ==
[2021-06-05 07:57] LABS: Hemoglobin 12.5 g/dL (13.0-16.5); Mean Corp Hgb Conc 32.9 g/dL (32-36); Mean Corpuscular Hgb 31.6 pg (27.0-32.0); Mean Platelet Vol. 9.7 fl (6.2-12.0); Platelet Count 236 K/mm3 (150-450); RBC Distribution Width CV 12.9 % (11.6-14.6); RBC Distribution Width SD 45.7 fl (35.1-43.9); Red Blood Count 3.96 M/mm3 (4.6-6.2); White Blood Count 6.7 K/mm3 (4.4-11.0)
== END ==
LOC: OLS.SW400 04:00
PROVIDERS: PCP Internal Medicine; Referring Provider Internal Medicine; Visit Provider Internal Medicine
DX: D64.9 Anemia, unspecified (principal); R53.83 Other fatigue
CPT/HCPCS: 36415; 85027

== ENCOUNTER → 2021-07-03 04:00 | Outpatient (REF) | payer MEDICARE, SELFPAY ==
[2021-07-03 06:48] LABS: Hemoglobin 11.4 g/dL (13.0-16.5); Mean Corp Hgb Conc 32.6 g/dL (32-36); Mean Corpuscular Volume 98.3 fL (80-94); Mean Platelet Vol. 9.9 fl (6.2-12.0); Platelet Count 243 K/mm3 (150-450); RBC Distribution Width CV 12.8 % (11.6-14.6); RBC Distribution Width SD 46.5 fl (35.1-43.9); Red Blood Count 3.56 M/mm3 (4.6-6.2); White Blood Count 6.9 K/mm3 (4.4-11.0)
== END ==
LOC: OLS.SW400 04:00
PROVIDERS: PCP Internal Medicine; Visit Provider Internal Medicine
DX: D64.9 Anemia, unspecified (principal)
CPT/HCPCS: 36415; 85027

== ENCOUNTER → 2021-07-27 05:00 | Outpatient (REF) | payer MEDICARE, SELFPAY ==
[2021-07-27 07:27] LABS: Hematocrit 34.6 % (40-54); Hemoglobin 11.4 g/dL (13.0-16.5); Mean Corp Hgb Conc 32.9 g/dL (32-36); Mean Corpuscular Hgb 32.9 pg (27.0-32.0); Mean Corpuscular Volume 99.7 fL (80-94); Mean Platelet Vol. 9.7 fl (6.2-12.0); Platelet Count 230 K/mm3 (150-450); RBC Distribution Width CV 12.7 % (11.6-14.6); RBC Distribution Width SD 45.9 fl (35.1-43.9); Red Blood Count 3.47 M/mm3 (4.6-6.2); White Blood Count 7.1 K/mm3 (4.4-11.0)
[2021-07-27 08:04] LABS: ALB/GLOB Ratio 0.9 RATIO (0.9-2.4); AST(SGOT) 24 U/L (15-37); Alanine Aminotransfer ALT/SGPT 37 U/L (16-61); Albumin, Serum 3.2 g/dL (3.2-5.0); Alkaline Phosphatase 70 U/L (45-117); Anion Gap 4 (5-15); BUN 18 mg/dL (7-18); BUN/Creat Ratio 29.3 RATIO (10-20); Calcium,Total 8.7 mg/dL (8.5-10.1); Chloride 105 mmol/L (98-107); Cholesterol 108 mg/dL (200); Creatinine, Serum 0.62 mg/dL (0.70-1.30); EST Glomerular Filtration Rate 132 mL/min (>60); Est Glom Filt Rate - Afr Amer 160 mL/min (>60); Globulin 3.6 g/dL (2.2-4.2); Glucose 87 mg/dL (74-106); High Density Lipoprotein 54 mg/dL; Potassium 4.2 mmol/L (3.5-5.1); Protein, Total 6.8 g/dL (6.4-8.2); Sodium Level 138 mmol/L (136-145); Triglycerides 56 mg/dL; Very Low Density Lipoprotein 11 mg/dL (5-40)
[2021-07-27 10:50] LABS: Vitamin D,25 Hydroxy 30.8 ng/mL
== END ==
LOC: OLS.SW400 05:00
PROVIDERS: PCP Internal Medicine; Visit Provider Internal Medicine
DX: F03.90 Unspecified dementia, unspecified severity, without behavioral disturbance, psychotic disturbance, mood disturbance, and anxiety (principal); R53.83 Other fatigue; I10 Essential (primary) hypertension; E55.9 Vitamin D deficiency, unspecified
CPT/HCPCS: 36415; 80053; 80061; 82306; 85027

== ENCOUNTER → 2021-07-31 05:00 | Outpatient (REF) | payer MEDICARE, SELFPAY ==
[2021-07-31 08:15] LABS: Hemoglobin 11.1 g/dL (13.0-16.5); Mean Corp Hgb Conc 32.6 g/dL (32-36); Mean Corpuscular Hgb 32.1 pg (27.0-32.0); Mean Corpuscular Volume 98.3 fL (80-94); Mean Platelet Vol. 9.8 fl (6.2-12.0); Platelet Count 214 K/mm3 (150-450); RBC Distribution Width CV 12.9 % (11.6-14.6); RBC Distribution Width SD 46.2 fl (35.1-43.9); Red Blood Count 3.46 M/mm3 (4.6-6.2); White Blood Count 6.5 K/mm3 (4.4-11.0)
== END ==
LOC: OLS.SW400 05:00
PROVIDERS: PCP Internal Medicine; Visit Provider Internal Medicine
DX: D64.9 Anemia, unspecified (principal)
CPT/HCPCS: 36415; 85027

== ENCOUNTER → 2021-08-28 05:00 | Outpatient (REF) | payer MEDICARE, SELFPAY ==
[2021-08-28 08:17] LABS: Hematocrit 34.2 % (40-54); Hemoglobin 11.3 g/dL (13.0-16.5); Mean Corpuscular Hgb 32.4 pg (27.0-32.0); Mean Platelet Vol. 9.9 fl (6.2-12.0); Platelet Count 238 K/mm3 (150-450); RBC Distribution Width CV 12.6 % (11.6-14.6); RBC Distribution Width SD 45.1 fl (35.1-43.9); Red Blood Count 3.49 M/mm3 (4.6-6.2); White Blood Count 6.9 K/mm3 (4.4-11.0)
== END ==
LOC: OLS.SW400 05:00
PROVIDERS: PCP Internal Medicine; Visit Provider Internal Medicine
DX: D64.9 Anemia, unspecified (principal); R53.83 Other fatigue
CPT/HCPCS: 36415; 85027

== ENCOUNTER → 2021-09-25 05:00 | Outpatient (REF) | payer MEDICARE, SELFPAY ==
[2021-09-25 07:22] LABS: Hematocrit 31.5 % (40-54); Hemoglobin 10.7 g/dL (13.0-16.5); Mean Corpuscular Hgb 33.1 pg (27.0-32.0); Mean Corpuscular Volume 97.5 fL (80-94); Mean Platelet Vol. 9.8 fl (6.2-12.0); Platelet Count 212 K/mm3 (150-450); RBC Distribution Width CV 12.2 % (11.6-14.6); RBC Distribution Width SD 43.8 fl (35.1-43.9); Red Blood Count 3.23 M/mm3 (4.6-6.2); White Blood Count 7.1 K/mm3 (4.4-11.0)
== END ==
LOC: OLS.SW300 05:00
PROVIDERS: PCP Internal Medicine; Visit Provider Internal Medicine
DX: D64.9 Anemia, unspecified (principal); E55.9 Vitamin D deficiency, unspecified
CPT/HCPCS: 36415; 85027

== ENCOUNTER → 2021-10-23 05:00 | Outpatient (REF) | payer MEDICARE, SELFPAY ==
[2021-10-23 10:21] LABS: Hematocrit 31.4 % (40-54); Hemoglobin 10.3 g/dL (13.0-16.5); Mean Corp Hgb Conc 32.8 g/dL (32-36); Mean Corpuscular Hgb 32.3 pg (27.0-32.0); Mean Corpuscular Volume 98.4 fL (80-94); Mean Platelet Vol. 10.1 fl (6.2-12.0); Platelet Count 240 K/mm3 (150-450); RBC Distribution Width CV 12.7 % (11.6-14.6); RBC Distribution Width SD 45.5 fl (35.1-43.9); Red Blood Count 3.19 M/mm3 (4.6-6.2); White Blood Count 6.2 K/mm3 (4.4-11.0)
== END ==
LOC: OLS.SW400 05:00
PROVIDERS: PCP Internal Medicine; Visit Provider Internal Medicine
DX: D64.9 Anemia, unspecified (principal); R53.83 Other fatigue; E55.9 Vitamin D deficiency, unspecified
CPT/HCPCS: 36415; 85027

== ENCOUNTER → 2021-11-17 11:55 | Outpatient (REF) | payer MEDICARE, SELFPAY ==
[2021-11-17 14:09] LABS: Absolute Lymphocyte Count 1.18 X10^3/uL (0.83-4.51); Absolute Neutrophil Count 6.6 X10^3/uL (2.0-7.7); Basophil# 0.02 X10^3/uL; Basophil% 0.2 % (0-1); Eosinophil# 0.12 X10^3/uL; Eosinophils% 1.3 % (0-5); Hematocrit 30.3 % (40-54); Hemoglobin 9.7 g/dL (13.0-16.5); Lymphocyte # 1.18 X10^3/ul (0.83-4.51); Lymphocyte % 13.2 % (19-41); Mean Corpuscular Hgb 32.3 pg (27.0-32.0); Mean Platelet Vol. 9.9 fl (6.2-12.0); Monocyte# 0.99 X10^3/uL; Monocyte% 11.1 % (0-10); NRBC Flagged by Analyzer 0 % (0-5); Neutrophil # 6.59 X10^3/uL (2.7-7.7); Neutrophil % 73.8 % (47-70); Platelet Count 243 K/mm3 (150-450); RBC Distribution Width CV 13.3 % (11.6-14.6); RBC Distribution Width SD 49.4 fl (35.1-43.9); White Blood Count 8.9 K/mm3 (4.4-11.0)
[2021-11-17 14:23] LABS: Anion Gap 7 (5-15); BUN 33 mg/dL (7-18); BUN/Creat Ratio 35.1 RATIO (10-20); Calcium,Total 8.9 mg/dL (8.5-10.1); Chloride 107 mmol/L (98-107); Creatinine, Serum 0.94 mg/dL (0.70-1.30); EST Glomerular Filtration Rate 81 mL/min (>60); Est Glom Filt Rate - Afr Amer 98 mL/min (>60); Glucose 152 mg/dL (74-106); Magnesium 2.5 mg/dL (1.6-2.6); Potassium 4.2 mmol/L (3.5-5.1); Sodium Level 140 mmol/L (136-145)
== END ==
LOC: OLS.SW400 11:55
PROVIDERS: PCP Internal Medicine; Visit Provider Internal Medicine
DX: D64.9 Anemia, unspecified (principal); I10 Essential (primary) hypertension; E78.5 Hyperlipidemia, unspecified; E55.9 Vitamin D deficiency, unspecified; F10.10 Alcohol abuse, uncomplicated; F33.3 Major depressive disorder, recurrent, severe with psychotic symptoms
CPT/HCPCS: 36415; 80048; 83735; 85025

== ENCOUNTER → 2021-11-22 07:00 | Outpatient (REF) | payer MEDICARE, SELFPAY ==
[2021-11-22 09:41] LABS: Hematocrit 27.5 % (40-54); Hemoglobin 9.2 g/dL (13.0-16.5); Mean Corp Hgb Conc 33.5 g/dL (32-36); Mean Corpuscular Hgb 32.9 pg (27.0-32.0); Mean Corpuscular Volume 98.2 fL (80-94); Mean Platelet Vol. 9.7 fl (6.2-12.0); Platelet Count 306 K/mm3 (150-450); RBC Distribution Width CV 12.7 % (11.6-14.6); RBC Distribution Width SD 45.5 fl (35.1-43.9); White Blood Count 8.2 K/mm3 (4.4-11.0)
[2021-11-22 09:45] LABS: Anion Gap 6 (5-15); BUN 32 mg/dL (7-18); BUN/Creat Ratio 39.7 RATIO (10-20); Calcium,Total 9.2 mg/dL (8.5-10.1); Chloride 108 mmol/L (98-107); Creatinine, Serum 0.81 mg/dL (0.70-1.30); EST Glomerular Filtration Rate 96 mL/min (>60); Est Glom Filt Rate - Afr Amer 117 mL/min (>60); Glucose 106 mg/dL (74-106); Sodium Level 141 mmol/L (136-145)
== END ==
LOC: OLS.SW400 07:00
PROVIDERS: PCP Internal Medicine; Visit Provider Internal Medicine
DX: R53.83 Other fatigue (principal)
CPT/HCPCS: 36415; 80048; 85027

== ENCOUNTER → 2021-12-18 06:45 | Outpatient (REF) | payer MEDICARE, SELFPAY ==
[2021-12-18 08:47] LABS: Hematocrit 27.5 % (40-54); Hemoglobin 8.5 g/dL (13.0-16.5); Mean Corp Hgb Conc 30.9 g/dL (32-36); Mean Corpuscular Hgb 30.9 pg (27.0-32.0); Mean Platelet Vol. 9.7 fl (6.2-12.0); Platelet Count 276 K/mm3 (150-450); RBC Distribution Width CV 13.1 % (11.6-14.6); RBC Distribution Width SD 47.5 fl (35.1-43.9); Red Blood Count 2.75 M/mm3 (4.6-6.2); White Blood Count 7.2 K/mm3 (4.4-11.0)
== END ==
LOC: OLS.SW400 06:45
PROVIDERS: PCP Internal Medicine; Visit Provider Internal Medicine
DX: D64.9 Anemia, unspecified (principal); R53.83 Other fatigue; E55.9 Vitamin D deficiency, unspecified
CPT/HCPCS: 36415; 85027

== ENCOUNTER 2022-01-15 04:00 | Outpatient (REF) | payer MEDICARE, SELFPAY ==
[2022-01-15 08:01] LABS: Hematocrit 25.3 % (40-54); Hemoglobin 8.3 g/dL (13.0-16.5); Mean Corp Hgb Conc 32.8 g/dL (32-36); Mean Corpuscular Hgb 31.1 pg (27.0-32.0); Mean Corpuscular Volume 94.8 fL (80-94); Mean Platelet Vol. 9.3 fl (6.2-12.0); Platelet Count 395 K/mm3 (150-450); RBC Distribution Width CV 12.3 % (11.6-14.6); RBC Distribution Width SD 42.7 fl (35.1-43.9); Red Blood Count 2.67 M/mm3 (4.6-6.2); White Blood Count 10.6 K/mm3 (4.4-11.0)
== END 2022-01-15 23:59 | disposition home or self-care (01) ==
LOC: OLS.SW400 04:00
PROVIDERS: PCP Internal Medicine; Referring Provider Internal Medicine; Visit Provider Internal Medicine
DX: D64.9 Anemia, unspecified (principal); R53.83 Other fatigue; E55.9 Vitamin D deficiency, unspecified
CPT/HCPCS: 36415; 85027

== ENCOUNTER → 2022-01-25 | Outpatient (REF) | payer MEDICARE, SELFPAY ==
[2022-01-25 08:13] LABS: Hematocrit 25.9 % (40-54); Hemoglobin 8.6 g/dL (13.0-16.5); Mean Corp Hgb Conc 33.2 g/dL (32-36); Mean Corpuscular Hgb 31.7 pg (27.0-32.0); Mean Corpuscular Volume 95.6 fL (80-94); Mean Platelet Vol. 9.3 fl (6.2-12.0); Platelet Count 431 K/mm3 (150-450); RBC Distribution Width CV 12.7 % (11.6-14.6); RBC Distribution Width SD 43.6 fl (35.1-43.9); Red Blood Count 2.71 M/mm3 (4.6-6.2); White Blood Count 7.4 K/mm3 (4.4-11.0)
[2022-01-25 08:26] LABS: Vitamin D,25 Hydroxy 59.6 ng/mL
[2022-01-25 08:40] LABS: ALB/GLOB Ratio 0.7 RATIO (0.9-2.4); AST(SGOT) 19 U/L (15-37); Alanine Aminotransfer ALT/SGPT 16 U/L (16-61); Albumin, Serum 2.8 g/dL (3.2-5.0); Alkaline Phosphatase 105 U/L (45-117); Anion Gap 4 (5-15); BUN 19 mg/dL (7-18); BUN/Creat Ratio 29.3 RATIO (10-20); Calcium,Total 8.6 mg/dL (8.5-10.1); Chloride 103 mmol/L (98-107); Cholesterol 94 mg/dL (200); Creatinine, Serum 0.65 mg/dL (0.70-1.30); EST Glomerular Filtration Rate 124 mL/min (>60); Est Glom Filt Rate - Afr Amer 150 mL/min (>60); Globulin 3.8 g/dL (2.2-4.2); Glucose 94 mg/dL (74-106); High Density Lipoprotein 45 mg/dL; Protein, Total 6.6 g/dL (6.4-8.2); Sodium Level 136 mmol/L (136-145); Triglycerides 65 mg/dL; Very Low Density Lipoprotein 13 mg/dL (5-40)
== END | disposition home or self-care (01) ==
LOC: OLS.SW400 04:00
PROVIDERS: PCP Internal Medicine; Visit Provider Internal Medicine
DX: R53.83 Other fatigue (principal); D64.9 Anemia, unspecified; E55.9 Vitamin D deficiency, unspecified
CPT/HCPCS: 36415; 80053; 80061; 82306; 85027

== ENCOUNTER 2022-02-12 04:00 | Outpatient (REF) | payer MEDICARE, SELFPAY ==
[2022-02-12 07:37] LABS: Hematocrit 27.1 % (40-54); Hemoglobin 8.7 g/dL (13.0-16.5); Mean Corp Hgb Conc 32.1 g/dL (32-36); Mean Corpuscular Hgb 30.4 pg (27.0-32.0); Mean Corpuscular Volume 94.8 fL (80-94); Mean Platelet Vol. 9.5 fl (6.2-12.0); Platelet Count 370 K/mm3 (150-450); RBC Distribution Width CV 14.1 % (11.6-14.6); RBC Distribution Width SD 48.9 fl (35.1-43.9); Red Blood Count 2.86 M/mm3 (4.6-6.2); White Blood Count 7.7 K/mm3 (4.4-11.0)
== END 2022-02-12 23:59 | disposition home or self-care (01) ==
LOC: OLS.SW400 04:00
PROVIDERS: PCP Internal Medicine; Visit Provider Internal Medicine
DX: D64.9 Anemia, unspecified (principal); E55.9 Vitamin D deficiency, unspecified; R53.83 Other fatigue
CPT/HCPCS: 36415; 85027

== ENCOUNTER → 2022-03-12 | Outpatient (REF) | payer MEDICARE, SELFPAY ==
[2022-03-12 10:18] LABS: Hematocrit 25.6 % (40-54); Hemoglobin 8.1 g/dL (13.0-16.5); Mean Corp Hgb Conc 31.6 g/dL (32-36); Mean Corpuscular Volume 94.8 fL (80-94); Mean Platelet Vol. 9.8 fl (6.2-12.0); Platelet Count 316 K/mm3 (150-450); RBC Distribution Width CV 14.5 % (11.6-14.6); RBC Distribution Width SD 50.2 fl (35.1-43.9); White Blood Count 9.3 K/mm3 (4.4-11.0)
== END | disposition home or self-care (01) ==
LOC: OLS.SW400 08:00
PROVIDERS: PCP Internal Medicine; Visit Provider Internal Medicine
DX: R53.83 Other fatigue (principal); D64.9 Anemia, unspecified; E55.9 Vitamin D deficiency, unspecified
CPT/HCPCS: 36415; 85027

== ENCOUNTER → 2022-04-09 | Outpatient (REF) | payer MEDICARE, SELFPAY ==
[2022-04-09 08:44] LABS: Hematocrit 25.6 % (40-54); Hemoglobin 7.8 g/dL (13.0-16.5); Mean Corp Hgb Conc 30.5 g/dL (32-36); Mean Corpuscular Hgb 29.8 pg (27.0-32.0); Mean Corpuscular Volume 97.7 fL (80-94); Mean Platelet Vol. 9.7 fl (6.2-12.0); Platelet Count 309 K/mm3 (150-450); RBC Distribution Width CV 14.6 % (11.6-14.6); RBC Distribution Width SD 51.8 fl (35.1-43.9); Red Blood Count 2.62 M/mm3 (4.6-6.2); White Blood Count 8.7 K/mm3 (4.4-11.0)
== END | disposition home or self-care (01) ==
LOC: OLS.SW400 05:00
PROVIDERS: PCP Internal Medicine; Referring Provider Internal Medicine; Visit Provider Internal Medicine
DX: R53.83 Other fatigue (principal); D64.9 Anemia, unspecified; E55.9 Vitamin D deficiency, unspecified
CPT/HCPCS: 36415; 85027

== ENCOUNTER → 2022-05-07 05:00 | Outpatient (REF) | payer MEDICARE, SELFPAY ==
[2022-05-07 09:04] LABS: Hematocrit 28.1 % (40-54); Hemoglobin 8.9 g/dL (13.0-16.5); Mean Corp Hgb Conc 31.7 g/dL (32-36); Mean Corpuscular Hgb 30.7 pg (27.0-32.0); Mean Corpuscular Volume 96.9 fL (80-94); Mean Platelet Vol. 9.7 fl (6.2-12.0); Platelet Count 345 K/mm3 (150-450); RBC Distribution Width CV 14.6 % (11.6-14.6); RBC Distribution Width SD 51.4 fl (35.1-43.9); White Blood Count 7.8 K/mm3 (4.4-11.0)
== END ==
LOC: OLS.SW400 05:00
PROVIDERS: PCP Internal Medicine; Visit Provider Internal Medicine
DX: D64.9 Anemia, unspecified (principal); R53.83 Other fatigue; E55.9 Vitamin D deficiency, unspecified
CPT/HCPCS: 36415; 85027

== ENCOUNTER → 2022-06-04 | Outpatient (REF) | payer SELFPAY ==
[2022-06-04 08:04] LABS: Hematocrit 27.9 % (40-54); Hemoglobin 8.5 g/dL (13.0-16.5); Mean Corp Hgb Conc 30.5 g/dL (32-36); Mean Corpuscular Hgb 29.9 pg (27.0-32.0); Mean Corpuscular Volume 98.2 fL (80-94); Mean Platelet Vol. 9.4 fl (6.2-12.0); Platelet Count 352 K/mm3 (150-450); RBC Distribution Width CV 13.8 % (11.6-14.6); RBC Distribution Width SD 49.8 fl (35.1-43.9); Red Blood Count 2.84 M/mm3 (4.6-6.2); White Blood Count 7.7 K/mm3 (4.4-11.0)
== END ==
LOC: OLS.SW400 05:00
PROVIDERS: PCP Internal Medicine; Visit Provider Internal Medicine
DX: D64.9 Anemia, unspecified (principal); R53.83 Other fatigue
CPT/HCPCS: 36415; 85027

== ENCOUNTER → 2022-06-28 | Outpatient (REF) | payer MEDICARE, SELFPAY ==
[2022-06-28 08:24] LABS: Vitamin D,25 Hydroxy 66.8 ng/mL
== END ==
LOC: OLS.SW400 04:00
PROVIDERS: PCP Internal Medicine; Visit Provider Internal Medicine
DX: E55.9 Vitamin D deficiency, unspecified (principal)
CPT/HCPCS: 36415; 82306

== ENCOUNTER → 2022-07-02 | Outpatient (REF) | payer MEDICARE, SELFPAY ==
[2022-07-02 08:53] LABS: Hematocrit 31.7 % (40-54); Hemoglobin 10.1 g/dL (13.0-16.5); Mean Corp Hgb Conc 31.9 g/dL (32-36); Mean Corpuscular Hgb 31.1 pg (27.0-32.0); Mean Corpuscular Volume 97.5 fL (80-94); Mean Platelet Vol. 9.9 fl (6.2-12.0); Platelet Count 360 K/mm3 (150-450); RBC Distribution Width CV 14.2 % (11.6-14.6); RBC Distribution Width SD 50.5 fl (35.1-43.9); Red Blood Count 3.25 M/mm3 (4.6-6.2); White Blood Count 8.2 K/mm3 (4.4-11.0)
[2022-07-02 08:58] LABS: Scan Indicated on CBC? Y/N NO
== END ==
LOC: OLS.SW400 05:00
PROVIDERS: PCP Internal Medicine; Visit Provider Internal Medicine
DX: D64.9 Anemia, unspecified (principal); E55.9 Vitamin D deficiency, unspecified
CPT/HCPCS: 36415; 85027

== ENCOUNTER → 2022-07-13 | Outpatient (REF) | payer MEDICARE, SELFPAY ==
[2022-07-13 08:10] LABS: Hematocrit 27.1 % (40-54); Hemoglobin 8.7 g/dL (13.0-16.5); Mean Corp Hgb Conc 32.1 g/dL (32-36); Mean Corpuscular Hgb 30.7 pg (27.0-32.0); Mean Corpuscular Volume 95.8 fL (80-94); Mean Platelet Vol. 9.8 fl (6.2-12.0); Platelet Count 272 K/mm3 (150-450); RBC Distribution Width CV 14.1 % (11.6-14.6); RBC Distribution Width SD 49.9 fl (35.1-43.9); Red Blood Count 2.83 M/mm3 (4.6-6.2); White Blood Count 5.7 K/mm3 (4.4-11.0)
[2022-07-13 08:28] LABS: AST(SGOT) 22 U/L (15-37); Alanine Aminotransfer ALT/SGPT 25 U/L (16-61); Albumin, Serum 3.1 g/dL (3.2-5.0); Alkaline Phosphatase 79 U/L (45-117); Anion Gap 4 (5-15); BUN 23 mg/dL (7-18); BUN/Creat Ratio 31.1 RATIO (10-20); Bilirubin, Direct 0.07 mg/dL (0.00-0.30); Calcium,Total 8.9 mg/dL (8.5-10.1); Chloride 107 mmol/L (98-107); Creatinine, Serum 0.74 mg/dL (0.70-1.30); EST Glomerular Filtration Rate 106 mL/min (>60); Est Glom Filt Rate - Afr Amer 129 mL/min (>60); Globulin 3.1 g/dL (2.2-4.2); Glucose 87 mg/dL (74-106); Potassium 3.9 mmol/L (3.5-5.1); Protein, Total 6.2 g/dL (6.4-8.2); Sodium Level 139 mmol/L (136-145)
== END ==
LOC: OLS.SW400 05:00
PROVIDERS: PCP Internal Medicine; Visit Provider Internal Medicine
DX: R53.83 Other fatigue (principal)
CPT/HCPCS: 36415; 80053; 82248; 85027

== ENCOUNTER → 2022-07-30 | Outpatient (REF) | payer MEDICARE, SELFPAY ==
[2022-07-30 09:15] LABS: Hematocrit 28.6 % (40-54); Hemoglobin 9.2 g/dL (13.0-16.5); Mean Corp Hgb Conc 32.2 g/dL (32-36); Mean Corpuscular Hgb 30.7 pg (27.0-32.0); Mean Corpuscular Volume 95.3 fL (80-94); Mean Platelet Vol. 9.7 fl (6.2-12.0); Platelet Count 292 K/mm3 (150-450); RBC Distribution Width CV 14.2 % (11.6-14.6); RBC Distribution Width SD 49.4 fl (35.1-43.9)
== END ==
LOC: OLS.SW400 04:00
PROVIDERS: PCP Internal Medicine; Referring Provider Internal Medicine; Visit Provider Internal Medicine
DX: D64.9 Anemia, unspecified (principal); R53.81 Other malaise
CPT/HCPCS: 36415; 85027

== ENCOUNTER → 2022-08-27 | Outpatient (REF) | payer MEDICARE, SELFPAY ==
[2022-08-27 09:53] LABS: Hematocrit 26.1 % (40-54); Hemoglobin 8.2 g/dL (13.0-16.5); Mean Corp Hgb Conc 31.4 g/dL (32-36); Mean Corpuscular Hgb 30.5 pg (27.0-32.0); Mean Platelet Vol. 10.1 fl (6.2-12.0); Platelet Count 287 K/mm3 (150-450); RBC Distribution Width CV 14.5 % (11.6-14.6); RBC Distribution Width SD 51.3 fl (35.1-43.9); Red Blood Count 2.69 M/mm3 (4.6-6.2); White Blood Count 7.2 K/mm3 (4.4-11.0)
== END ==
LOC: OLS.SW400 05:00
PROVIDERS: PCP Internal Medicine; Visit Provider Internal Medicine
DX: D64.9 Anemia, unspecified (principal); E55.9 Vitamin D deficiency, unspecified; R53.83 Other fatigue
CPT/HCPCS: 36415; 85027

== ENCOUNTER → 2022-09-24 | Outpatient (REF) | payer MEDICARE, MEDICAID, SELFPAY ==
[2022-09-24 08:57] LABS: Hematocrit 30.7 % (40-54); Hemoglobin 9.9 g/dL (13.0-16.5); Mean Corp Hgb Conc 32.2 g/dL (32-36); Mean Corpuscular Hgb 30.7 pg (27.0-32.0); Mean Platelet Vol. 9.9 fl (6.2-12.0); Platelet Count 385 K/mm3 (150-450); RBC Distribution Width CV 13.3 % (11.6-14.6); RBC Distribution Width SD 46.7 fl (35.1-43.9); Red Blood Count 3.23 M/mm3 (4.6-6.2); White Blood Count 10.7 K/mm3 (4.4-11.0)
[2022-09-27 05:21] LABS: Vitamin D,25 Hydroxy 72.8 ng/mL
== END ==
LOC: OLS.SW 05:00
PROVIDERS: PCP Internal Medicine; Visit Provider Internal Medicine
DX: R53.83 Other fatigue (principal); D64.9 Anemia, unspecified; E55.9 Vitamin D deficiency, unspecified
CPT/HCPCS: 36415; 82306; 85027

== ENCOUNTER → 2022-10-12 | Outpatient (REF) | payer MEDICARE, MEDICAID, SELFPAY ==
[2022-10-12 07:36] LABS: Hematocrit 29.1 % (40-54); Hemoglobin 9.4 g/dL (13.0-16.5); Mean Corp Hgb Conc 32.3 g/dL (32-36); Mean Corpuscular Hgb 31.5 pg (27.0-32.0); Mean Corpuscular Volume 97.7 fL (80-94); Mean Platelet Vol. 9.6 fl (6.2-12.0); Platelet Count 320 K/mm3 (150-450); RBC Distribution Width CV 13.7 % (11.6-14.6); Red Blood Count 2.98 M/mm3 (4.6-6.2)
[2022-10-12 07:48] LABS: ALB/GLOB Ratio 0.8 RATIO (0.9-2.4); AST(SGOT) 19 U/L (15-37); Alanine Aminotransfer ALT/SGPT 20 U/L (16-61); Albumin, Serum 2.9 g/dL (3.2-5.0); Alkaline Phosphatase 86 U/L (45-117); Anion Gap 5 (5-15); BUN 24 mg/dL (7-18); BUN/Creat Ratio 34.1 RATIO (10-20); Bilirubin, Direct 0.08 mg/dL (0.00-0.30); Calcium,Total 8.5 mg/dL (8.5-10.1); Chloride 103 mmol/L (98-107); EST Glomerular Filtration Rate 112 mL/min (>60); Est Glom Filt Rate - Afr Amer 136 mL/min (>60); Globulin 3.7 g/dL (2.2-4.2); Glucose 91 mg/dL (74-106); Protein, Total 6.6 g/dL (6.4-8.2); Sodium Level 137 mmol/L (136-145)
== END ==
LOC: OLS.SW 04:00
PROVIDERS: PCP Internal Medicine; Referring Provider Internal Medicine; Visit Provider Internal Medicine
DX: F03.90 Unspecified dementia, unspecified severity, without behavioral disturbance, psychotic disturbance, mood disturbance, and anxiety (principal); I10 Essential (primary) hypertension; E78.5 Hyperlipidemia, unspecified
CPT/HCPCS: 36415; 80053; 82248; 85027

== ENCOUNTER → 2022-10-22 | Outpatient (REF) | payer MEDICARE, MEDICAID, SELFPAY ==
[2022-10-22 08:47] LABS: Hematocrit 30.8 % (40-54); Hemoglobin 9.8 g/dL (13.0-16.5); Mean Corp Hgb Conc 31.8 g/dL (32-36); Mean Corpuscular Hgb 30.6 pg (27.0-32.0); Mean Corpuscular Volume 96.3 fL (80-94); Mean Platelet Vol. 9.5 fl (6.2-12.0); Platelet Count 297 K/mm3 (150-450); RBC Distribution Width CV 13.4 % (11.6-14.6); RBC Distribution Width SD 47.7 fl (35.1-43.9); White Blood Count 7.1 K/mm3 (4.4-11.0)
== END ==
LOC: OLS.SW 05:00
PROVIDERS: PCP Internal Medicine; Visit Provider Internal Medicine
DX: D64.9 Anemia, unspecified (principal); R53.83 Other fatigue; E55.9 Vitamin D deficiency, unspecified
CPT/HCPCS: 36415; 85027

== ENCOUNTER → 2022-10-31 | Outpatient (REF) | payer MEDICARE, MEDICAID, SELFPAY ==
[2022-10-31 08:55] LABS: Vitamin D,25 Hydroxy 66.4 ng/mL
== END ==
LOC: OLS.SW 05:00
PROVIDERS: PCP Internal Medicine; Visit Provider Internal Medicine
DX: E55.9 Vitamin D deficiency, unspecified (principal); F03.90 Unspecified dementia, unspecified severity, without behavioral disturbance, psychotic disturbance, mood disturbance, and anxiety
CPT/HCPCS: 36415; 82306

== ENCOUNTER → 2022-11-20 | Outpatient (REF) | payer MEDICARE, MEDICAID, SELFPAY ==
[2022-11-20 10:01] LABS: Hematocrit 31.6 % (40-54); Mean Corp Hgb Conc 31.6 g/dL (32-36); Mean Corpuscular Hgb 31.2 pg (27.0-32.0); Mean Corpuscular Volume 98.4 fL (80-94); Mean Platelet Vol. 9.9 fl (6.2-12.0); Platelet Count 290 K/mm3 (150-450); RBC Distribution Width CV 14.1 % (11.6-14.6); RBC Distribution Width SD 50.9 fl (35.1-43.9); Red Blood Count 3.21 M/mm3 (4.6-6.2)
== END ==
LOC: OLS.SW 05:00
PROVIDERS: PCP Internal Medicine; Visit Provider Internal Medicine
DX: D64.9 Anemia, unspecified (principal); I10 Essential (primary) hypertension
CPT/HCPCS: 36415; 85027

== ENCOUNTER → 2022-12-27 | Outpatient (REF) | payer MEDICARE, MEDICAID, SELFPAY ==
[2022-12-27 08:48] LABS: Vitamin D,25 Hydroxy 71.3 ng/mL
== END ==
LOC: OLS.SW 05:00
PROVIDERS: PCP Internal Medicine; Visit Provider Internal Medicine
DX: E55.9 Vitamin D deficiency, unspecified (principal)
CPT/HCPCS: 36415; 82306

== ENCOUNTER → 2023-01-11 | Outpatient (REF) | payer MEDICARE, MEDICAID, SELFPAY ==
[2023-01-11 08:26] LABS: Hematocrit 31.6 % (40-54); Hemoglobin 9.7 g/dL (13.0-16.5); Mean Corp Hgb Conc 30.7 g/dL (32-36); Mean Corpuscular Hgb 30.8 pg (27.0-32.0); Mean Corpuscular Volume 100.3 fL (80-94); Mean Platelet Vol. 9.6 fl (6.2-12.0); Platelet Count 362 K/mm3 (150-450); RBC Distribution Width CV 14.3 % (11.6-14.6); RBC Distribution Width SD 52.1 fl (35.1-43.9); Red Blood Count 3.15 M/mm3 (4.6-6.2)
[2023-01-11 08:51] LABS: ALB/GLOB Ratio 0.8 RATIO (0.9-2.4); AST(SGOT) 26 U/L (15-37); Alanine Aminotransfer ALT/SGPT 28 U/L (16-61); Albumin, Serum 3.3 g/dL (3.2-5.0); Alkaline Phosphatase 99 U/L (45-117); Anion Gap 5 (5-15); BUN 26 mg/dL (7-18); BUN/Creat Ratio 34.9 RATIO (10-20); Bilirubin, Direct 0.06 mg/dL (0.00-0.30); Chloride 106 mmol/L (98-107); Creatinine, Serum 0.74 mg/dL (0.70-1.30); EST Glomerular Filtration Rate 105 mL/min (>60); Est Glom Filt Rate - Afr Amer 128 mL/min (>60); Globulin 4.2 g/dL (2.2-4.2); Glucose 110 mg/dL (74-106); Protein, Total 7.5 g/dL (6.4-8.2); Sodium Level 140 mmol/L (136-145)
== END ==
LOC: OLS.SW 05:00
PROVIDERS: PCP Internal Medicine; Visit Provider Internal Medicine
DX: R73.03 Prediabetes (principal); E03.9 Hypothyroidism, unspecified
CPT/HCPCS: 36415; 80053; 82248; 85027

== ENCOUNTER → 2023-01-15 | Outpatient (REF) | payer MEDICARE, MEDICAID, SELFPAY ==
[2023-01-15 08:38] LABS: Hematocrit 28.6 % (40-54); Hemoglobin 9.1 g/dL (13.0-16.5); Mean Corp Hgb Conc 31.8 g/dL (32-36); Mean Corpuscular Hgb 32.2 pg (27.0-32.0); Mean Corpuscular Volume 101.1 fL (80-94); Mean Platelet Vol. 9.6 fl (6.2-12.0); Platelet Count 307 K/mm3 (150-450); RBC Distribution Width CV 14.4 % (11.6-14.6); RBC Distribution Width SD 52.7 fl (35.1-43.9); Red Blood Count 2.83 M/mm3 (4.6-6.2); White Blood Count 7.1 K/mm3 (4.4-11.0)
== END ==
LOC: OLS.SW 06:20
PROVIDERS: PCP Internal Medicine; Referring Provider Internal Medicine; Visit Provider Internal Medicine
DX: D64.9 Anemia, unspecified (principal); R53.83 Other fatigue
CPT/HCPCS: 36415; 85027

== ENCOUNTER → 2023-02-12 | Outpatient (REF) | payer MEDICARE, MEDICAID, SELFPAY ==
[2023-02-12 08:36] LABS: Hematocrit 32.6 % (40-54); Hemoglobin 10.3 g/dL (13.0-16.5); Mean Corp Hgb Conc 31.6 g/dL (32-36); Mean Corpuscular Hgb 31.6 pg (27.0-32.0); Mean Platelet Vol. 9.5 fl (6.2-12.0); Platelet Count 430 K/mm3 (150-450); RBC Distribution Width CV 13.1 % (11.6-14.6); RBC Distribution Width SD 47.4 fl (35.1-43.9); Red Blood Count 3.26 M/mm3 (4.6-6.2); White Blood Count 13.5 K/mm3 (4.4-11.0)
== END ==
LOC: OLS.SW 05:00
PROVIDERS: PCP Internal Medicine; Visit Provider Internal Medicine
DX: D64.9 Anemia, unspecified (principal); R53.83 Other fatigue
CPT/HCPCS: 36415; 85027

== ENCOUNTER → 2023-03-12 | Outpatient (REF) | payer MEDICARE, MEDICAID, SELFPAY ==
[2023-03-12 08:20] LABS: Prealbumin 14.7 mg/dL (20.0-40.0)
== END ==
LOC: OLS.SW 05:00
PROVIDERS: PCP Internal Medicine; Visit Provider Internal Medicine
DX: L89.90 Pressure ulcer of unspecified site, unspecified stage (principal)
CPT/HCPCS: 36415; 84134

== ENCOUNTER → 2023-03-28 | Outpatient (REF) | payer MEDICARE, MEDICAID, SELFPAY ==
[2023-03-28 08:53] LABS: Vitamin D,25 Hydroxy 62.9 ng/mL
== END ==
LOC: OLS.SW 05:00
PROVIDERS: PCP Internal Medicine; Visit Provider Internal Medicine
DX: E55.9 Vitamin D deficiency, unspecified (principal)
CPT/HCPCS: 36415; 82306

== ENCOUNTER → 2023-04-12 | Outpatient (REF) | payer MEDICARE, MEDICAID, SELFPAY ==
[2023-04-12 06:46] LABS: Hematocrit 32.1 % (40-54); Hemoglobin 9.8 g/dL (13.0-16.5); Mean Corp Hgb Conc 30.5 g/dL (32-36); Mean Corpuscular Hgb 29.3 pg (27.0-32.0); Mean Corpuscular Volume 95.8 fL (80-94); Mean Platelet Vol. 9.7 fl (6.2-12.0); Platelet Count 298 K/mm3 (150-450); RBC Distribution Width CV 13.5 % (11.6-14.6); RBC Distribution Width SD 47.9 fl (35.1-43.9); Red Blood Count 3.35 M/mm3 (4.6-6.2); White Blood Count 8.5 K/mm3 (4.4-11.0)
[2023-04-12 07:13] LABS: ALB/GLOB Ratio 0.7 RATIO (0.9-2.4); AST(SGOT) 30 U/L (15-37); Alanine Aminotransfer ALT/SGPT 24 U/L (16-61); Alkaline Phosphatase 87 U/L (45-117); Anion Gap 3 (5-15); BUN 25 mg/dL (7-18); BUN/Creat Ratio 30.9 RATIO (10-20); Bilirubin, Direct < 0.05 mg/dL (0.00-0.30); Calcium,Total 9.1 mg/dL (8.5-10.1); Chloride 107 mmol/L (98-107); Creatinine, Serum 0.81 mg/dL (0.70-1.30); EST Glomerular Filtration Rate 96 mL/min (>60); Est Glom Filt Rate - Afr Amer 116 mL/min (>60); Globulin 4.4 g/dL (2.2-4.2); Glucose 90 mg/dL (74-106); Protein, Total 7.4 g/dL (6.4-8.2); Sodium Level 138 mmol/L (136-145)
== END ==
LOC: OLS.SW 05:00
PROVIDERS: PCP Internal Medicine; Visit Provider Internal Medicine
DX: D64.9 Anemia, unspecified (principal); F03.90 Unspecified dementia, unspecified severity, without behavioral disturbance, psychotic disturbance, mood disturbance, and anxiety; I10 Essential (primary) hypertension
CPT/HCPCS: 36415; 80053; 82248; 85027

== ENCOUNTER → 2023-05-14 12:00 | Outpatient (REF) | payer MEDICARE, MEDICAID, SELFPAY ==
[2023-05-14 13:01] LABS: Absolute Lymphocyte Count 1.75 X10^3/uL (0.83-4.51); Basophil# 0.04 X10^3/uL; Basophil% 0.3 % (0-1); Eosinophil# 0.12 X10^3/uL; Hematocrit 28.7 % (40-54); Hemoglobin 8.8 g/dL (13.0-16.5); Lymphocyte # 1.75 X10^3/ul (0.83-4.51); Lymphocyte % 14.1 % (19-41); Mean Corp Hgb Conc 30.7 g/dL (32-36); Mean Platelet Vol. 9.8 fl (6.2-12.0); Monocyte# 1.31 X10^3/uL; Monocyte% 10.6 % (0-10); NRBC Flagged by Analyzer 0 % (0-5); Neutrophil # 8.95 X10^3/uL (2.7-7.7); Neutrophil % 72.3 % (47-70); Platelet Count 286 K/mm3 (150-450); RBC Distribution Width CV 16.1 % (11.6-14.6); RBC Distribution Width SD 57.8 fl (35.1-43.9); Red Blood Count 2.93 M/mm3 (4.6-6.2); White Blood Count 12.4 K/mm3 (4.4-11.0)
[2023-05-14 13:27] LABS: Anion Gap 8 (5-15); BUN 48 mg/dL (7-18); BUN/Creat Ratio 36.6 RATIO (10-20); Calcium,Total 9.3 mg/dL (8.5-10.1); Chloride 107 mmol/L (98-107); Creatinine, Serum 1.31 mg/dL (0.70-1.30); EST Glomerular Filtration Rate 55 mL/min (>60); Est Glom Filt Rate - Afr Amer 66 mL/min (>60); Glucose 111 mg/dL (74-106); Potassium 3.6 mmol/L (3.5-5.1); Sodium Level 139 mmol/L (136-145)
== END ==
LOC: OLS.SW 12:00
PROVIDERS: PCP Internal Medicine; Visit Provider Internal Medicine
DX: R53.83 Other fatigue (principal); J18.9 Pneumonia, unspecified organism
CPT/HCPCS: 36415; 80048; 85025

== ENCOUNTER → 2023-05-16 05:00 | Outpatient (REF) | payer MEDICARE, MEDICAID, SELFPAY ==
[2023-05-16 09:15] LABS: Absolute Lymphocyte Count 1.41 X10^3/uL (0.83-4.51); Absolute Neutrophil Count 6.2 X10^3/uL (2.0-7.7); Basophil# 0.03 X10^3/uL; Basophil% 0.3 % (0-1); Eosinophil# 0.07 X10^3/uL; Eosinophils% 0.8 % (0-5); Hematocrit 26.1 % (40-54); Hemoglobin 8.1 g/dL (13.0-16.5); Lymphocyte # 1.41 X10^3/ul (0.83-4.51); Lymphocyte % 16.4 % (19-41); Mean Corpuscular Hgb 30.5 pg (27.0-32.0); Mean Corpuscular Volume 98.1 fL (80-94); Mean Platelet Vol. 9.9 fl (6.2-12.0); Monocyte# 0.85 X10^3/uL; Monocyte% 9.9 % (0-10); NRBC Flagged by Analyzer 0 % (0-5); Neutrophil # 6.18 X10^3/uL (2.7-7.7); Platelet Count 282 K/mm3 (150-450); RBC Distribution Width CV 15.7 % (11.6-14.6); RBC Distribution Width SD 55.5 fl (35.1-43.9); Red Blood Count 2.66 M/mm3 (4.6-6.2); White Blood Count 8.6 K/mm3 (4.4-11.0)
[2023-05-16 09:28] LABS: Albumin, Serum 2.8 g/dL (3.2-5.0); BUN 44 mg/dL (7-18); BUN/Creat Ratio 47.8 RATIO (10-20); Calcium,Total 8.7 mg/dL (8.5-10.1); Chloride 108 mmol/L (98-107); Creatinine, Serum 0.92 mg/dL (0.70-1.30); EST Glomerular Filtration Rate 82 mL/min (>60); Est Glom Filt Rate - Afr Amer 100 mL/min (>60); Glucose 114 mg/dL (74-106); Phosphorus 3.6 mg/dL (2.5-4.9); Potassium 3.9 mmol/L (3.5-5.1); Sodium Level 140 mmol/L (136-145)
== END ==
LOC: OLS.SW 05:00
PROVIDERS: PCP Internal Medicine; Visit Provider Internal Medicine
DX: E86.0 Dehydration (principal); J18.9 Pneumonia, unspecified organism
CPT/HCPCS: 36415; 80069; 85025

== ENCOUNTER → 2023-05-22 05:00 | Outpatient (REF) | payer MEDICARE, MEDICAID, SELFPAY ==
[2023-05-22 09:22] LABS: Absolute Lymphocyte Count 1.78 X10^3/uL (0.83-4.51); Absolute Neutrophil Count 5.3 X10^3/uL (2.0-7.7); Basophil# 0.05 X10^3/uL; Basophil% 0.6 % (0-1); Eosinophil# 0.36 X10^3/uL; Eosinophils% 4.3 % (0-5); Hematocrit 30.7 % (40-54); Hemoglobin 9.5 g/dL (13.0-16.5); Lymphocyte # 1.78 X10^3/ul (0.83-4.51); Lymphocyte % 21.4 % (19-41); Mean Corp Hgb Conc 30.9 g/dL (32-36); Mean Corpuscular Volume 96.8 fL (80-94); Mean Platelet Vol. 9.6 fl (6.2-12.0); Monocyte# 0.81 X10^3/uL; Monocyte% 9.7 % (0-10); NRBC Flagged by Analyzer 0 % (0-5); Neutrophil % 63.6 % (47-70); Platelet Count 459 K/mm3 (150-450); RBC Distribution Width CV 15.3 % (11.6-14.6); RBC Distribution Width SD 54.6 fl (35.1-43.9); Red Blood Count 3.17 M/mm3 (4.6-6.2); White Blood Count 8.3 K/mm3 (4.4-11.0)
[2023-05-22 09:55] LABS: Anion Gap 7 (5-15); BUN 27 mg/dL (7-18); BUN/Creat Ratio 30.6 RATIO (10-20); Calcium,Total 9.5 mg/dL (8.5-10.1); Chloride 108 mmol/L (98-107); Creatinine, Serum 0.88 mg/dL (0.70-1.30); EST Glomerular Filtration Rate 87 mL/min (>60); Est Glom Filt Rate - Afr Amer 105 mL/min (>60); Glucose 90 mg/dL (74-106); Potassium 3.8 mmol/L (3.5-5.1); Sodium Level 139 mmol/L (136-145)
== END ==
LOC: OLS.SW 05:00
PROVIDERS: PCP Internal Medicine; Visit Provider Internal Medicine
DX: D64.9 Anemia, unspecified (principal)
CPT/HCPCS: 36415; 80048; 85025

== ENCOUNTER → 2023-06-03 04:00 | Outpatient (REF) | payer MEDICARE, MEDICAID, SELFPAY ==
[2023-06-03 08:32] LABS: Vitamin B12 548 pg/mL (211-911)
[2023-06-03 08:39] LABS: Cholesterol 100 mg/dL (200); High Density Lipoprotein 56 mg/dL; Triglycerides 63 mg/dL; Very Low Density Lipoprotein 13 mg/dL (5-40)
== END ==
LOC: OLS.SW 04:00
PROVIDERS: PCP Internal Medicine; Referring Provider Internal Medicine; Visit Provider Internal Medicine
DX: R53.83 Other fatigue (principal)
CPT/HCPCS: 36415; 80061; 82607; 82746

== ENCOUNTER → 2023-06-18 05:00 | Outpatient (REF) | payer MEDICARE, MEDICAID, SELFPAY ==
[2023-06-18 09:47] LABS: Hematocrit 31.5 % (40-54); Hemoglobin 9.8 g/dL (13.0-16.5); Mean Corp Hgb Conc 31.1 g/dL (32-36); Mean Corpuscular Hgb 29.9 pg (27.0-32.0); Platelet Count 291 K/mm3 (150-450); RBC Distribution Width CV 14.9 % (11.6-14.6); RBC Distribution Width SD 52.2 fl (35.1-43.9); Red Blood Count 3.28 M/mm3 (4.6-6.2); White Blood Count 8.1 K/mm3 (4.4-11.0)
== END ==
LOC: OLS.SW 05:00
PROVIDERS: PCP Internal Medicine; Visit Provider Internal Medicine
DX: E55.9 Vitamin D deficiency, unspecified (principal); D64.9 Anemia, unspecified; R53.83 Other fatigue
CPT/HCPCS: 36415; 85027

== ENCOUNTER → 2023-07-12 05:00 | Outpatient (REF) | payer MEDICARE, MEDICAID, SELFPAY ==
[2023-07-12 08:01] LABS: Hematocrit 30.3 % (40-54); Hemoglobin 9.8 g/dL (13.0-16.5); Mean Corp Hgb Conc 32.3 g/dL (32-36); Mean Corpuscular Hgb 31.2 pg (27.0-32.0); Mean Corpuscular Volume 96.5 fL (80-94); Mean Platelet Vol. 9.6 fl (6.2-12.0); Platelet Count 253 K/mm3 (150-450); RBC Distribution Width CV 14.3 % (11.6-14.6); RBC Distribution Width SD 50.9 fl (35.1-43.9); Red Blood Count 3.14 M/mm3 (4.6-6.2); White Blood Count 6.4 K/mm3 (4.4-11.0)
[2023-07-12 08:12] LABS: ALB/GLOB Ratio 0.8 RATIO (0.9-2.4); AST(SGOT) 21 U/L (15-37); Alanine Aminotransfer ALT/SGPT 21 U/L (16-61); Alkaline Phosphatase 101 U/L (45-117); Anion Gap 4 (5-15); BUN 21 mg/dL (7-18); BUN/Creat Ratio 28.7 RATIO (10-20); Bilirubin, Direct 0.05 mg/dL (0.00-0.30); Calcium,Total 8.7 mg/dL (8.5-10.1); Chloride 107 mmol/L (98-107); Creatinine, Serum 0.73 mg/dL (0.70-1.30); EST Glomerular Filtration Rate 107 mL/min (>60); Est Glom Filt Rate - Afr Amer 130 mL/min (>60); Globulin 3.6 g/dL (2.2-4.2); Glucose 93 mg/dL (74-106); Potassium 4.2 mmol/L (3.5-5.1); Protein, Total 6.6 g/dL (6.4-8.2); Sodium Level 140 mmol/L (136-145)
== END ==
LOC: OLS.SW 05:00
PROVIDERS: PCP Internal Medicine; Visit Provider Internal Medicine
DX: D64.9 Anemia, unspecified (principal)
CPT/HCPCS: 36415; 80053; 82248; 85027

== ENCOUNTER → 2023-09-16 | Outpatient (REF) | payer MEDICARE, MEDICAID, SELFPAY ==
[2023-09-16 08:22] LABS: Hematocrit 31.5 % (40-54); Hemoglobin 10.4 g/dL (13.0-16.5); Mean Corpuscular Hgb 32.5 pg (27.0-32.0); Mean Corpuscular Volume 98.4 fL (80-94); Mean Platelet Vol. 10.3 fl (6.2-12.0); Platelet Count 236 K/mm3 (150-450); RBC Distribution Width CV 13.2 % (11.6-14.6); RBC Distribution Width SD 47.3 fl (35.1-43.9); White Blood Count 5.2 K/mm3 (4.4-11.0)
== END ==
LOC: OLS.SW 04:00
PROVIDERS: PCP Internal Medicine; Referring Provider Internal Medicine; Visit Provider Internal Medicine
DX: D64.9 Anemia, unspecified (principal); R53.83 Other fatigue
CPT/HCPCS: 36415; 85027

== ENCOUNTER → 2023-09-26 | Outpatient (REF) | payer MEDICARE, MEDICAID, SELFPAY ==
[2023-09-26 08:59] LABS: Vitamin D,25 Hydroxy 71.5 ng/mL
== END ==
LOC: OLS.SW 05:00
PROVIDERS: PCP Internal Medicine; Visit Provider Internal Medicine
DX: E83.51 Hypocalcemia (principal)
CPT/HCPCS: 36415; 82306

== ENCOUNTER → 2023-10-11 | Outpatient (REF) | payer MEDICARE, MEDICAID, SELFPAY ==
[2023-10-11 08:46] LABS: Hematocrit 33.2 % (40-54); Hemoglobin 10.6 g/dL (13.0-16.5); Mean Corp Hgb Conc 31.9 g/dL (32-36); Mean Corpuscular Hgb 31.6 pg (27.0-32.0); Mean Corpuscular Volume 99.1 fL (80-94); Mean Platelet Vol. 10.1 fl (6.2-12.0); Platelet Count 244 K/mm3 (150-450); RBC Distribution Width CV 13.4 % (11.6-14.6); RBC Distribution Width SD 48.9 fl (35.1-43.9); Red Blood Count 3.35 M/mm3 (4.6-6.2)
[2023-10-11 09:07] LABS: ALB/GLOB Ratio 0.9 RATIO (0.9-2.4); AST(SGOT) 27 U/L (15-37); Alanine Aminotransfer ALT/SGPT 24 U/L (16-61); Albumin, Serum 3.2 g/dL (3.2-5.0); Alkaline Phosphatase 80 U/L (45-117); Anion Gap 1 (5-15); BUN 25 mg/dL (7-18); BUN/Creat Ratio 27.6 RATIO (10-20); Bilirubin, Direct 0.07 mg/dL (0.00-0.30); Calcium,Total 9.1 mg/dL (8.5-10.1); Chloride 108 mmol/L (98-107); EST Glomerular Filtration Rate 84 mL/min (>60); Est Glom Filt Rate - Afr Amer 102 mL/min (>60); Globulin 3.7 g/dL (2.2-4.2); Glucose 83 mg/dL (74-106); Protein, Total 6.9 g/dL (6.4-8.2); Sodium Level 139 mmol/L (136-145)
== END ==
LOC: OLS.SW 06:55
PROVIDERS: PCP Internal Medicine; Visit Provider Internal Medicine
DX: E78.5 Hyperlipidemia, unspecified (principal)
CPT/HCPCS: 36415; 80053; 82248; 85027

== ENCOUNTER → 2023-11-22 | Outpatient (REF) | payer MEDICARE, MEDICAID, SELFPAY ==
--- OUTSIDE RECORDS SUMMARY | 2023-11-23 01:26 | XMS RPT_ITS | CCD ---
Author Name Unknown Address [address] [place] [address] Organization [facility] Results Test Name Value Interpretation [...] BE BASED ON THE PRIMARY CLINICAL RECORDS. [employer] provides no warranty or guarantee of the accuracy or completeness of information in this document.
[2023-11-23 01:27] LABS: Hematocrit 29.8 % (40-54); Hemoglobin 9.9 g/dL (13.0-16.5); Mean Corp Hgb Conc 33.2 g/dL (32-36); Mean Corpuscular Hgb 32.9 pg (27.0-32.0); Mean Platelet Vol. 10.8 fl (6.2-12.0); Platelet Count 209 K/mm3 (150-450); RBC Distribution Width CV 14.5 % (11.6-14.6); RBC Distribution Width SD 52.6 fl (35.1-43.9); Red Blood Count 3.01 M/mm3 (4.6-6.2); White Blood Count 16.8 K/mm3 (4.4-11.0)
[2023-11-23 01:56] LABS: BNP,B-Type NATRIURETIC PEPTIDE 46.2 pg/mL (0-100)
== END ==
LOC: OLS.SW 23:25
PROVIDERS: PCP Internal Medicine; Visit Provider Internal Medicine
DX: Z79.899 Other long term (current) drug therapy (principal)
CPT/HCPCS: 83880; 85027

== ENCOUNTER → 2023-11-23 | Outpatient (CLI) | payer MEDICARE, MEDICAID, SELFPAY ==
--- OUTSIDE RECORDS SUMMARY | 2023-11-23 01:14 | XMS RPT_ITS | CCD ---
Author Name Unknown Address [address] [place] [address] Organization [facility] Results Test Name Value Interpretation Reference Range Facil ity Summary Purpose Family History No Family History Records Found Advance Directives No Advanced Directives Records Found Additional Source Comments (unrecognized sect ion and content) No Status Records Found INFORMATION SOURCE (unrecogn ized section and content) FOR RECORDS PERTAINING TO PATIENTS WHO ARE OR HAVE BEEN ENROLLED IN A CHEMICAL DEPENDENCY/SUBSTANCEABUSE PROGRAM, SOME INFORMATION MAY BE OMITTED. This clinical summary was aggregated from multiple sources. Caution should be exercised in using it in the provision of clinical care. This summary normalizes information from multiple sources, and as a consequence, information in this document may materially change the coding, format and clinical context of patient data. In addition, data may be omitted in some cases. CLINICAL DECISIONS SHOULD BE BASED ON THE PRIMARY CLINICAL RECORDS. [employer]. provides no warranty or guarantee of the accuracy or completeness of information in this document.
== END | disposition home or self-care (01) ==
LOC: LABSPEC 01:12
PROVIDERS: PCP Internal Medicine; Visit Provider Internal Medicine
DX: Z00.00 Encounter for general adult medical examination without abnormal findings (principal)

== ENCOUNTER → 2023-11-25 | Outpatient (REF) | payer MEDICARE, MEDICAID, SELFPAY ==
[2023-11-25 09:16] LABS: Absolute Lymphocyte Count 1.47 X10^3/uL (0.83-4.51); Absolute Neutrophil Count 6.9 X10^3/uL (2.0-7.7); Basophil# 0.02 X10^3/uL; Basophil% 0.2 % (0-1); Eosinophil# 0.04 X10^3/uL; Eosinophils% 0.4 % (0-5); Lymphocyte # 1.47 X10^3/ul (0.83-4.51); Lymphocyte % 16.1 % (19-41); Mean Corpuscular Hgb 31.6 pg (27.0-32.0); Mean Corpuscular Volume 101.8 fL (80-94); Mean Platelet Vol. 10.4 fl (6.2-12.0); Monocyte# 0.62 X10^3/uL; Monocyte% 6.8 % (0-10); NRBC Flagged by Analyzer 0 % (0-5); Neutrophil % 75.7 % (47-70); Platelet Count 253 K/mm3 (150-450); RBC Distribution Width CV 14.4 % (11.6-14.6); RBC Distribution Width SD 53.9 fl (35.1-43.9); Red Blood Count 2.85 M/mm3 (4.6-6.2); White Blood Count 9.1 K/mm3 (4.4-11.0)
[2023-11-25 10:11] LABS: Anion Gap 3 (5-15); BUN 41 mg/dL (7-18); BUN/Creat Ratio 43.7 RATIO (10-20); Calcium,Total 9.7 mg/dL (8.5-10.1); Chloride 111 mmol/L (98-107); Creatinine, Serum 0.94 mg/dL (0.70-1.30); EST Glomerular Filtration Rate 81 mL/min (>60); Est Glom Filt Rate - Afr Amer 98 mL/min (>60); Glucose 91 mg/dL (74-106); Potassium 3.6 mmol/L (3.5-5.1); Sodium Level 145 mmol/L (136-145)
== END ==
LOC: OLS.SW 04:00
PROVIDERS: PCP Internal Medicine; Referring Provider Internal Medicine; Visit Provider Internal Medicine
DX: E86.0 Dehydration (principal); R83.8 Other abnormal findings in cerebrospinal fluid; J18.9 Pneumonia, unspecified organism
CPT/HCPCS: 36415; 80048; 85025

== ENCOUNTER → 2023-11-27 | Outpatient (REF) | payer MEDICARE, MEDICAID, SELFPAY ==
--- OUTSIDE RECORDS SUMMARY | 2023-11-27 05:22 | XMS RPT_ITS | CCD ---
Author Name Unknown Address [address] [place] [address] Organization [facility] Results Test Name Value Interpretation [...] BE BASED ON THE PRIMARY CLINICAL RECORDS. [employer]. provides no warranty or guarantee of the accuracy or completeness of information in this document.
[2023-11-27 08:18] LABS: Absolute Neutrophil Count 6.8 X10^3/uL (2.0-7.7); Basophil# 0.02 X10^3/uL; Basophil% 0.2 % (0-1); Eosinophil# 0.09 X10^3/uL; Eosinophils% 0.9 % (0-5); Hematocrit 30.8 % (40-54); Lymphocyte % 17.7 % (19-41); Mean Corp Hgb Conc 32.5 g/dL (32-36); Mean Corpuscular Hgb 32.5 pg (27.0-32.0); Monocyte# 0.89 X10^3/uL; Monocyte% 9.3 % (0-10); NRBC Flagged by Analyzer 0 % (0-5); Neutrophil # 6.79 X10^3/uL (2.7-7.7); Neutrophil % 70.7 % (47-70); Platelet Count 303 K/mm3 (150-450); RBC Distribution Width CV 14.1 % (11.6-14.6); Red Blood Count 3.08 M/mm3 (4.6-6.2); White Blood Count 9.6 K/mm3 (4.4-11.0)
== END ==
LOC: OLS.SW 05:00
PROVIDERS: PCP Internal Medicine; Visit Provider Internal Medicine
DX: Z79.899 Other long term (current) drug therapy (principal)
CPT/HCPCS: 36415; 85025

== ENCOUNTER → 2023-12-04 | Outpatient (REF) | payer MEDICARE, MEDICAID, SELFPAY ==
--- OUTSIDE RECORDS SUMMARY | 2023-12-04 04:31 | XMS RPT_ITS | CCD ---
Author Name Unknown Address [address] [place] [address] Organization [facility] Results Test Name Value Interpretation [...] BE BASED ON THE PRIMARY CLINICAL RECORDS. [email or web address]. provides no warranty or guarantee of the accuracy or completeness of information in this document.
[2023-12-04 10:59] LABS: ALB/GLOB Ratio 0.8 RATIO (0.9-2.4); AST(SGOT) 27 U/L (15-37); Alanine Aminotransfer ALT/SGPT 26 U/L (16-61); Albumin, Serum 3.4 g/dL (3.2-5.0); Alkaline Phosphatase 98 U/L (45-117); Anion Gap 3 (5-15); BUN 28 mg/dL (7-18); BUN/Creat Ratio 27.7 RATIO (10-20); Calcium,Total 9.8 mg/dL (8.5-10.1); Chloride 106 mmol/L (98-107); Creatinine, Serum 1.01 mg/dL (0.70-1.30); EST Glomerular Filtration Rate 74 mL/min (>60); Est Glom Filt Rate - Afr Amer 90 mL/min (>60); Globulin 4.5 g/dL (2.2-4.2); Glucose 112 mg/dL (74-106); Potassium 3.7 mmol/L (3.5-5.1); Prealbumin 23.1 mg/dL (20.0-40.0); Protein, Total 7.9 g/dL (6.4-8.2); Sodium Level 139 mmol/L (136-145)
== END ==
LOC: OLS.SW 05:00
PROVIDERS: PCP Internal Medicine; Visit Provider Internal Medicine
DX: G30.9 Alzheimer's disease, unspecified (principal)
CPT/HCPCS: 36415; 80053; 84134

== ENCOUNTER 2024-07-28 20:19 | Emergency (ER) | payer MEDICAID, SELFPAY ==
[2024-07-28 20:20] VITALS: BP 135/50; PULSE 71; RESP 16; TEMP 36.4; O2SAT 95; BMI 20.2
[2024-07-28] MEDS: Lidocaine 1% /Epi 1:100 (20ml) 20 ML Vial INFILT (21:18)
[2024-07-28 21:19] VITALS: PULSE 66; O2SAT 94
[2024-07-28] MEDS: BACITRACIN 15 GM Tube 1 APPLIC TOPICAL (21:19)
--- NOTE | 2024-07-28 21:19 | EX.ED.DYSGE1 ---
HPI History of Present Illness Chief Complaint: Fall Narrative Narrative: Chief complaint and HPI: Mechanical fall and laceration. Patient is a 89-year-old male with past medical history of dementia and CAD on hospice who presents for evaluation of mechanical fall. Per report, patient had a mechanical fall during transport. He has a large laceration to the right eyebrow that is Y-shaped as well as a large skin tear to the right forearm. Patient is alert and oriented to self only which is his baseline per report. He states he fell while walking. Denies any headache, nausea, vomiting abdominal pain, chest pain, shortness of breath, pain in the back or extremities, neck pain. No reported LOC. Not on blood thinners Review of systems: See HPI Medications: As listed on the chart Allergies: As listed on the chart PFSH: Per chart Vital signs: As listed on the chart. Reviewed. Physical exam: Gen: A&O x1-patient's baseline per report, NAD Head: Normocephalic, atraumatic Eyes: No sclera icterus, conjunctiva clear, PERRL, EOMI, large Y shape laceration to the right eyebrow ENT: Moist mucous membranes, no swelling/lacerations/blood in the mouth or the nares, No nasal septal hematoma, no facial tenderness Neck: Trachea midline, No JVD, Nontender CV: RRR, no murmurs, no chest wall TTP Resp: Lungs CTA BL, no w/r/c GI: Abd soft, non-distended, non-tender, no r/r/g Musc: Full ROM, no deformity, no spinal TTP, no gloria step-offs Skin: Warm, dry, large skin tear to the right foot Neuro: Alert, oriented, grossly intact, sensation intact, GCS 14-patient's baseline Psych: Cooperative, appropriate mood and affect [facility] Medical History (Updated 07/28/24 @ 21:[address] Juan J Drake, ) Anxiety Anemia Alcohol abuse Alzheimer dementia COPD (chronic obstructive pulmonary disease) HTN (hypertension) Depressive disorder Home Medications ?Medication ?Instructions ?Recorded ?Last Taken ?Type aspirin 81 mg chewable tablet 81 mg PO DAILY@0800 heart health 10/04/16 11/18/19 08:00 History 81 atorvastatin 80 mg tablet 80 mg PO QHS cholesterol 10/04/16 11/17/19 20:30 History 80 acetaminophen 500 mg tablet 1,000 mg PO Q8 pain 08/19/18 Unknown History calcium carbonate (Oyster Shell 500 mg PO DAILY@0800 supplement 08/19/18 11/18/19 08:00 History Calcium 500) 500 cholecalciferol (vitamin D3) 25 1,000 unit PO DAILY supplement 08/19/18 11/18/19 08:00 History mcg (1,000 unit) capsule (Vitamin 1000 D3) donepezil 10 mg tablet 10 mg PO QHS memory 11/18/19 11/17/19 History 10 sertraline 50 mg tablet 100 mg (2 x 50 mg) PO DAILY 11/20/19 Unknown Rx mood/depression #1 TAB Allergy/AdvReac Type Severity Reaction Status Date / Time Penicillins Allergy Unknown Verified 01/13/20 11:45 Social History Smoking Status: Never smoker EXAM Physical Exam Const Vital Signs: 07/28/24 20:20 07/28/24 20:26 Temperature 97.6 F L Temperature Source Temporal Pulse Rate 71 Respiratory Rate 16 Respiratory Effort Normal Non-Labored Respiratory Depth Normal Respiratory Pattern Normal Blood Pressure 135/50 H Blood Pressure Mean 78 Pulse Ox 95 Oxygen Delivery Method Room Air Room Air MDM MDM MDM Narrative Medical decision making narrative: 89-year-old male with past medical history of CAD on hospice presents for evaluation of mechanical fall with skin tear and laceration. Patient denies any complaints or pain. I personally called the care facility in which the patient resides. Per nursing staff, they state hospice care wanted laceration repairs only and no imaging. I did confirm that patient is hospice on his paperwork. Y shaped laceration was repaired and patient tolerated this well. Large skin tear was unable to be repaired, I did remove the excess skin. Bacitracin was applied to both wounds. Sutures will need to be removed in 5 to 7 days. Patient stable to discharge back to his care facility. Laceration Repair Indication: Laceration Location: 5.5 cm Y laceration to the right eyebrow Consent: Verbal consent was given by the patient as well as nursing staff Procedure: A time out was performed. The area was prepped and draped in the usual sterile fashion. Local anesthesia was achieved using a total 10 cc of 1% Lidocaine. The wound was copiously irrigated and cleaned. 11 sutures were placed using 5-0 Ethilon in an interrupted fashion. 6-0 Ethilon was unable to be used given the gaping this of the wound. The estimated blood loss was minimal. A dressing was applied to the area with Bacitracin. The patient tolerated the procedure well without complications. Foreign Material: None Debridement: None. However I did debride off the skin of his large right forearm laceration. Impression: 1. Fall 2. 5.5 cm wide laceration to the right eyebrow, repaired 3. Right forearm skin tear Discharge Plan Triage Chief Complaint: Fall ED Provider: Juan J Drake Dx/Rx/DC Orders Clinical Impression: Fall, Laceration of face Instructions: ED Laceration, All Closures Prescriptions: No Action atorvastatin 80 MG tablet 80 mg PO QHS aspirin 81 MG tablet,chewable 81 mg PO DAILY@0800 acetaminophen 500 MG tablet 1,000 mg PO Q8 calcium carbonate [Oyster Shell Calcium 500] 500 MG tablet 500 mg PO DAILY@0800 cholecalciferol (vitamin D3) [Vitamin D3] 1,000 UNIT capsule 1,000 unit PO DAILY donepezil 10 MG tablet 10 mg PO QHS sertraline 50 MG tablet 100 mg PO DAILY Qty: 1 0RF Primary Care Provider: Shasta Beniets Referrals: Shasta Benites MD [Primary Care Provider] - 3-5 Days Activity Restrictions/Additional Instructions: Sutures need to be removed in 5 to 7 days. Print Language: Colombian Disposition Disposition: Home, Self Care
[2024-07-28 22:00] VITALS: PULSE 70; RESP 18; O2SAT 95
[2024-07-28 23:00] VITALS: PULSE 70; RESP 18; O2SAT 92
[2024-07-28 23:44] VITALS: PULSE 73; RESP 18; O2SAT 95
== END 2024-07-28 23:45 | disposition home or self-care (01) ==
PROVIDERS: Emergency Provider Surgery; PCP Internal Medicine; Visit Provider Surgery
DX: S01.111A Laceration without foreign body of right eyelid and periocular area, initial encounter (principal); G30.9 Alzheimer's disease, unspecified; F02.80 Dementia in other diseases classified elsewhere, unspecified severity, without behavioral disturbance, psychotic disturbance, mood disturbance, and anxiety; J44.9 Chronic obstructive pulmonary disease, unspecified; S51.801A Unspecified open wound of right forearm, initial encounter; I10 Essential (primary) hypertension; W19.XXXA Unspecified fall, initial encounter; I25.10 Atherosclerotic heart disease of native coronary artery without angina pectoris; Y93.01 Activity, walking, marching and hiking; F41.9 Anxiety disorder, unspecified; Z79.899 Other long term (current) drug therapy; Z79.82 Long term (current) use of aspirin
CPT/HCPCS: 12014; 99283

== ENCOUNTER → 2024-09-23 | Outpatient (REF) | payer MEDICARE, MEDICAID, SELFPAY ==
[2024-09-24 06:11] LABS: Prealbumin 16 mg/dL (9-32)
== END ==
LOC: OLS.SW 05:00
PROVIDERS: PCP Internal Medicine; Visit Provider Internal Medicine
DX: E88.09 Other disorders of plasma-protein metabolism, not elsewhere classified (principal)
CPT/HCPCS: 36415; 84134